=== PATIENT | male | born 1970 | race Caucasian/White ===

== ENCOUNTER → 2016-08-16 | Outpatient (CLI) | payer BC, OTHER ==
[~2016-08-16] MED LIST: AMLO-110 PO; ATEN50TA8 PO; CALC667C4 PO; CHOL1000 PO; ISOS30TA3 PO; LSX20 PO; SIMV20TA2 PO
--- NOTE | 2016-08-16 14:00 | DIAGNOSTIC IMAGING REPORT ---
ABDOMEN AND PELVIS CT WITHOUT CONTRAST CT DOSE: 1793.86 mGy.cm HISTORY: Pre-op study. EVAL FOR TRANSPLANT TECHNIQUE: Multiaxial CT images of the abdomen and pelvis were performed without contrast. COMPARISON STUDY: Abdominal CT 03/22/2010. FINDINGS: The lung bases are essentially clear. Small fat-containing umbilical hernia measuring 4.8 cm. The unenhanced liver, adrenal glands, pancreas, and gallbladder appear unremarkable. Interval increase in size and number of the bilateral hepatic and renal hypodense lesions. These are technically indeterminate on this noncontrast study but are consistent with cysts in the setting of polycystic kidney disease. Some of the renal lesions are intermediate to increased density. Again, these are incompletely characterized but favor hyperdense cysts. Evaluation for solid renal mass is considered nondiagnostic due to the lack of intravenous contrast. Dominant renal cyst is seen within the lower pole of the right kidney and measures 8 cm. There are few punctate bilateral renal calculi. No hydronephrosis. No significant retroperitoneal lymphadenopathy. There appear to be single bilateral renal arteries and renal veins. Normal caliber abdominal aorta. Suboptimal evaluation for bowel pathology due to the lack of intravenous and oral contrast. However, there is no definite bowel wall thickening or obstruction. The bladder is not well-distended but appears unremarkable. Colonic diverticulosis. Both kidneys are enlarged. IMPRESSION: 1. Redemonstration of the polycystic kidney disease with increase in size and number of the bilateral renal and hepatic lesions/cysts. 2. No bowel wall thickening or obstruction. 3. Small fat-containing umbilical hernia. 4. Bilateral nephrolithiasis. No hydronephrosis. 5. Colonic diverticulosis. Electronically signed by: Real Elaine M.D. 08/16/2016 1:59 PM Dictated Date/Time: 08/16/2016 1:43 PM
== END | disposition home or self-care (01) ==
LOC: C.CTS 12:27
PROVIDERS: ATTEND Transplant Surgery
DX: N18.6 End stage renal disease (principal); Q61.9 Cystic kidney disease, unspecified; N20.0 Calculus of kidney; K57.30 Diverticulosis of large intestine without perforation or abscess without bleeding

== ENCOUNTER 2024-06-04 12:37 | Inpatient (IN) ==
--- NOTE | 2024-06-04 13:29 | XRay Report ---
XR chest 1V portable CLINICAL HISTORY: Dyspnea. COMPARISON STUDY: Chest radiograph April 20, 2022. FINDINGS: Mild elevation of the right hemidiaphragm is unchanged. There is no pneumothorax or pleural effusion. Cardiomediastinal silhouette is unremarkable. Mild interstitial thickening is present. IMPRESSION: Mild interstitial thickening. This could reflect mild pulmonary edema or an infectious p rocess. Radiographic follow up is recommended. ACT 112: Negative or not required by law. Electronically signed by: David Montez M.D. 06/04/2024 1:27 PM
[2024-06-04 13:32] LABS: Basophils # (auto) 0.04 K/uL (0.00-0.20); Basophils % (auto) 0.5 %; Eosinophils # (auto) 0.19 K/uL (0.00-0.50); Eosinophils % (auto) 2.5 %; Hematocrit (blood only) 53.5 % (42.0-52.0); Hemoglobin 16.5 g/dl (14.0-18.0); Immature Granulocytes # (auto) 0.02 K/uL (0.01-0.20); Immature Granulocytes % (auto) 0.3 %; Lymphocytes # (auto) 0.36 K/uL (1.20-3.40); Lymphocytes % (auto) 4.6 %; Mean Corpuscular Hemoglobin 25.9 pg (25.0-34.0); Mean Corpuscular Hgb Conc 30.8 g/dL (32.0-36.0); Mean Platelet Volume 11.2 fL (9.4-12.4); Monocytes # (auto) 0.47 K/uL (0.11-0.59); Monocytes % (auto) 6.1 %; Neutrophils # (auto) 6.67 K/uL (1.40-6.50); Platelet Count 175 K/uL (130-400); RDW Coefficient of Variation 17.8 % (11.5-14.5); RDW Standard Deviation 49.8 fL (36.4-46.3); Red Blood Count 6.37 M/uL (4.70-6.10); White Blood Count 7.75 K/ul (4.8-10.8)
[2024-06-04 13:50] LABS: Albumin Globulin Ratio 1.7 (0.9-2); Albumin Level 4.1 gm/dl (3.4-5.0); BUN Creatinine Ratio 15.4 (10-20); Bilirubin,Total 0.9 mg/dl (0.2-1.0); Calcium 9.8 mg/dl (8.6-10.3); Creatinine Clr Calc Pharmacy 83.7 ml/min; Globulin 2.4 gm/dl (2.5-4.0); Magnesium 1.8 mg/dl (1.7-2.4); Potassium 4.6 mmol/L (3.5-5.1); Total Protein 6.5 gm/dl (6.0-8.3)
[2024-06-04 13:54] LABS: INR 1.1 (0.9-1.1); Partial Thromboplastin Ratio 1.1; Partial Thromboplastin Time 29 Seconds (21-31); Prothrombin Time 11.4 Seconds (9.0-12.0)
--- NOTE | 2024-06-04 14:13 | Emergency Department Note ---
Impression & Plan Hypoxia, Polycystic kidney disease, S/P kidney transplant, Enterovirus infection, Rhinovirus infection ED Provider Note Provider: Benedict Key MD CHIEF COMPLAINT: Cough, shortness of breath HISTORY OF PRESENT ILLNESS: Patient is a 53-year-old gentleman history of kidney transplant [facility] in 2020 secondary to polycystic kidney disease, hypertension, hyperlipidemia presenting here referred from the outpatient clinic. States in reports over the past week he has had cough and shortness of breath with exertion. Mildly productive cough. No significant swelling recent travel. No significant chest pain or lightheadedness or dizziness reported. Denies fever or sore throat or congestion. No history of asthma reported. Did have small relative at an ear infection recently. No urinary issues or abdominal pain reported. No nausea or vomiting reported. Found to be hypoxic in the clinic and sent here for further evaluation. PAST MEDICAL HISTORY: As noted above MEDICATIONS: Reviewed home medications states compliance SOCIAL HISTORY: Rodrigues, non-smoker PHYSICAL EXAM: GENERAL: alert and oriented in no acute distress on stretcher Head: normocephalic and atraumatic EYES: No injection, discharge or icterus. EOMI. NECK: Trachea midline. ENT: Mucous membranes pink and moist. LUNGS: Airway patent. No retractions. Breath sounds clear HEART: Regular rate and rhythm. No chest wall tenderness ABDOMEN: Soft and non-tender, without guarding or rebound. SKIN: Acyanotic, warm, dry, without rashes EXTREMITIES: Without swelling, tenderness or deformity NEUROLOGICAL: No focal deficits moving all extremities. No aphasia. No facial droop or slurred speech. EK bpm normal sinus rhythm. No PVC or PAC. No acute ST segment elevation or depression with a QTc of 420. CONTINUOUS CARDIAC MONITORING: was ordered and showed a heart rate of 60s-70s bpm in normal sinus rhythm Patient's laboratory studies and imaging reviewed. Differential includes Reactive airway disease, pneumonia, pneumothorax, COPD, CHF, infections, cardiac ischemia, pulmonary embolism, musculoskeletal, gastrointestinal, as well as other pathologies. IMPRESSION/MEDICAL DECISION MAKING: Normally active rodrigues. No smoking history or significant respiratory history reported. Does significantly have a history of kidney transplant. Not normally on oxygen and now needing 5 to 6 L. Chest x-ray mild possible edema and interstitial thickening but no significant swelling on clinical exam. No significant leukocytosis or fever reported. Maybe a slight cough. Procalcitonin not elevated. Did send cultures and lactate given his immunosuppressed status. Renal function per his baseline but elevated 1.4. No other significant lecture light abnormalities. Respiratory viral panel was sent. No significant evidence of again leg swelling or DVT on exam but PE does enter the differential. Obvious concerns with kidney transplant his creatinine of 1.4 for IV contrast. Does not seem significantly wheezy on exam. Discussed with the patient and given his oxygen requirement, I do believe we need to bring him into the hospital. Does test positive for enterorhinovirus. Discussed with hospitalist team bringing the patient in and further workup with pulmonary imaging. Hypoxia seems a bit exaggerated for enterorhinovirus given his lack of significant pulmonary history. As he is stable at this point we will defer to the hospitalist team ordering further PE workup etc. discussed with patient plan to stay for further care and he was agreeable. DIAGNOSIS: Shortness of breath, hypoxia, history of renal transplant DISPOSITION: Hospitalist will evaluate Patient was agreeable with this plan. Past Med/Surg History Problem List (Updated 06/04/24 @ 18:07 by Benedict Key M.D.) Rhinovirus infection (Acute) Enterovirus infection (Acute) Hypoxia (Acute) Venous aneurysm Lower extremity edema (Acute) Hematoma of right lower leg (Acute) Hypomagnesemia BK polyoma viruria S/P kidney transplant (Acute) Hyperlipidemia (Chronic) Hypertension (Chronic) controlled, stable per pt Secondary hyperparathyroidism (Chronic) Per records, pt unaware End stage renal disease (Chronic) Hx dialysis (not currently), renal transplant 2020, Follows with Dr. Case and Monika Henley ([facility]) Polycystic kidney disease (Acute) Medical History Elevated hemidiaphragm Traumatic open wound of right lower leg with delayed healing History of gout History of deep venous thrombosis (DVT) of distal vein of left lower extremity A-V fistula Cellulitis of left leg Dialysis patient Surgical History Hx of colonoscopy Hx of kidney transplant History of surgery History of wisdom tooth extraction History of tonsillectomy S/P cardiac catheterization Family History Mother Diabetes Hypertension Polycystic kidney Other No family history of adverse response to anesthesia Denies family history of Ovarian cancer Prostate cancer Myocardial infarction Breast cancer Colorectal cancer Stroke Social History (Updated 04/25/24 @ 08:58 by DEBBIE Anderson) Smoking Status: Never smoker Second Hand Exposure: No; Do You Dip or Chew Tobacco: No; Hx Alcohol Use: No Hx Substance Use: No Preferred Language: Vietnamese Communication Ability: Effective Visual Impairment: Limited Hearing Ability: Normal Rewinder Operator Helper Required: No Beliefs That Will Affect Care: None marital status: Single Current Living Situation: Alone current occupational status: employed current occupation: [employer] How many Children do You have: 0 Feels Safe at Home: Yes Childhood Exposure to Second-Hand Smoke: No Diet: regular caffeine: Yes (sometimes) during the past year weight has: remained stable Dental Care, Regularly: Yes Physical Activity Frequency: Daily Physical Activity Frequency Comment: active daily Seatbelt Use: always Sunscreen Use: Yes Do you think of yourself as: straight/heterosexual Gender Identity: Male Assistive Devices: Glasses Allergies Allergies Allergy/AdvReac Type Severity Reaction Status Date / Time No Known Drug Allergies Allergy Verified 06/04/24 11:55 Home Meds Home Medications Medication Instructions Recorded Confirmed aspirin 81 mg tablet,delayed 81 mg PO QAM 01/12/21 06/04/24 release (Adult Aspirin Regimen) cholecalciferol (vitamin D3) 25 25 mcg PO QAM 01/12/21 06/04/24 mcg (1,000 unit) capsule multivitamin 1 tab PO QAM 01/12/21 06/04/24 tamsulosin 0.4 mg capsule (Flomax) 0.4 mg PO HS 01/12/21 06/04/24 vitamin B complex (B 1 tab PO QAM 05/13/21 06/04/24 Complex-Vitamin B12 tablet) mycophenolate mofetil 250 mg 500 mg PO BID 01/13/22 06/04/24 capsule (CellCept) magnesium oxide 400 mg (241.3 mg 1,200 mg PO BID 08/07/22 06/04/24 magnesium) tablet sodium di- and 1 tab PO BID 08/07/22 06/04/24 monophosphate-potassium phos monobasic 250 mg tablet ([id number]) tacrolimus 1 mg capsule, 2 mg PO .COMPLEX 11/10/22 06/04/24 immediate-release (Prograf) Mucinex 1 tab PO DIRECTED PRN Other 06/04/24 06/04/24 Previous Rx's Medication Instructions Recorded prednisone 5 mg tablet 5 mg PO QAM #90 tabs 06/28/23 atenolol 25 mg tablet 25 mg PO HS #90 tabs 10/11/23 simvastatin 20 mg tablet (Zocor) 20 mg PO HS #90 tabs 10/11/23 Results & Data (ED) Vital Signs Vital Signs - 24 hr 06/04/24 12:46 06/04/24 13:00 06/04/24 13:04 Temperature 36.8 C Temperature Source Temporal Artery Scan Pulse Rate 80 78 Pulse Rate from SpO2 Sensor Respiratory Rate 20 Respiratory Effort / Characteristics Non-Labored Spontaneous Respiratory Depth Normal Respiratory Pattern Regular Blood Pressure 150/102 H 156/99 H Blood Pressure Mean 118 121 Pulse Oximetry 86 L Oxygen Delivery Method Room Air Oxygen Flow Rate Sepsis Recent Fever Within 48 Hours No Sepsis New/Unexplained Change in Mental Status N/A Sepsis Action Taken by Nursing No Action Required 06/04/24 13:15 06/04/24 13:21 06/04/24 13:24 Temperature Temperature Source Pulse Rate 73 78 78 Pulse Rate from SpO2 Sensor 75 77 78 Respiratory Rate 25 H 27 H 16 Respiratory Effort / Characteristics Respiratory Depth Respiratory Pattern Blood Pressure Blood Pressure Mean Pulse Oximetry 95 94 93 Oxygen Delivery Method Nasal Cannula Oxygen Flow Rate 6 Sepsis Recent Fever Within 48 Hours Sepsis New/Unexplained Change in Mental Status Sepsis Action Taken by Nursing 06/04/24 13:30 06/04/24 13:36 06/04/24 13:45 Temperature Temperature Source Pulse Rate 67 70 Pulse Rate from SpO2 Sensor 70 71 Respiratory Rate 22 30 H Respiratory Effort / Characteristics Respiratory Depth Respiratory Pattern Blood Pressure 149/93 H Blood Pressure Mean 112 Pulse Oximetry 94 93 Oxygen Delivery Method Oxygen Flow Rate Sepsis Recent Fever Within 48 Hours Sepsis New/Unexplained Change in Mental Status Sepsis Action Taken by Nursing 06/04/24 13:54 06/04/24 13:54 06/04/24 13:55 Temperature Temperature Source Pulse Rate 73 Pulse Rate from SpO2 Sensor Respiratory Rate Respiratory Effort / Characteristics Spontaneous SOB on Exertion Respiratory Depth Respiratory Pattern Blood Pressure Blood Pressure Mean Pulse Oximetry 95 Oxygen Delivery Method Nasal Cannula Nasal Cannula Oxygen Flow Rate 6 6 Sepsis Recent Fever Within 48 Hours Sepsis New/Unexplained Change in Mental Status Sepsis Action Taken by Nursing 06/04/24 13:57 06/04/24 14:00 06/04/24 14:09 Temperature Temperature Source Pulse Rate 71 66 Pulse Rate from SpO2 Sensor 70 66 Respiratory Rate 27 H 29 H Respiratory Effort / Characteristics Respiratory Depth Respiratory Pattern Blood Pressure 154/99 H Blood Pressure Mean 106 Pulse Oximetry 94 93 Oxygen Delivery Method Oxygen Flow Rate Sepsis Recent Fever Within 48 Hours Sepsis New/Unexplained Change in Mental Status Sepsis Action Taken by Nursing 06/04/24 14:27 06/04/24 14:30 06/04/24 14:30 Temperature Temperature Source Pulse Rate 61 62 Pulse Rate from SpO2 Sensor 61 62 Respiratory Rate 30 H 31 H Respiratory Effort / Characteristics Respiratory Depth Respiratory Pattern Blood Pressure 139/93 Blood Pressure Mean 109 Pulse Oximetry 91 92 Oxygen Delivery Method Oxygen Flow Rate Sepsis Recent Fever Within 48 Hours Sepsis New/Unexplained Change in Mental Status Sepsis Action Taken by Nursing 06/04/24 14:48 06/04/24 14:54 06/04/24 15:00 Temperature Temperature Source Pulse Rate 78 77 Pulse Rate from SpO2 Sensor 79 78 Respiratory Rate 22 27 H Respiratory Effort / Characteristics Respiratory Depth Respiratory Pattern Blood Pressure 155/98 H Blood Pressure Mean 117 Pulse Oximetry 95 95 Oxygen Delivery Method Oxygen Flow Rate Sepsis Recent Fever Within 48 Hours Sepsis New/Unexplained Change in Mental Status Sepsis Action Taken by Nursing 06/04/24 15:03 06/04/24 15:24 Temperature Temperature Source Pulse Rate 75 68 Pulse Rate from SpO2 Sensor 75 68 Respiratory Rate 18 25 H Respiratory Effort / Characteristics Respiratory Depth Respiratory Pattern Blood Pressure Blood Pressure Mean Pulse Oximetry 95 95 Oxygen Delivery Method Nasal Cannula Oxygen Flow Rate 6 Sepsis Recent Fever Within 48 Hours Sepsis New/Unexplained Change in Mental Status Sepsis Action Taken by Nursing Laboratory Data 06/04/24 13:04 06/04/24 13:04 Lab Results 06/04/24 06/04/24 06/04/24 Range/Units 13:04 13:28 13:35 WBC 7.75 (4.8-10.8) K/ul RBC 6.37 H (4.70-6.10) M/uL Hgb 16.5 (14.0-18.0) g/dl Hct 53.5 H (42.0-52.0) % MCV 84.0 (80.0-100.0) fL MCH 25.9 (25.0-34.0) pg MCHC 30.8 L (32.0-36.0) g/dL RDW Std Deviation 49.8 H (36.4-46.3) fL RDW Coeff of Jenelle 17.8 H (11.5-14.5) % Plt Count 175 (130-400) K/uL MPV 11.2 (9.4-12.4) fL Immature Gran % (Auto) 0.3 % Neut % (Auto) 86.0 % Lymph % (Auto) 4.6 % Rice % (Auto) 6.1 % Eos % (Auto) 2.5 % Baso % (Auto) 0.5 % Neut # (Auto) 6.67 H (1.40-6.50) K/uL Lymph # (Auto) 0.36 L (1.20-3.40) K/uL Rice # (Auto) 0.47 (0.11-0.59) K/uL Eos # (Auto) 0.19 (0.00-0.50) K/uL Baso # (Auto) 0.04 (0.00-0.20) K/uL Immature Gran # (Auto) 0.02 (0.01-0.20) K/uL PT 11.4 (9.0-12.0) Seconds INR 1.1 (0.9-1.1) APTT 29 (21-31) Seconds PTT Ratio 1.1 Sodium 141 (136-145) mmol/L Potassium 4.6 (3.5-5.1) mmol/L Chloride 104 (98-107) mmol/L Carbon Dioxide 30 (21-32) mmol/L Anion Gap 7 (3-11) BUN 22 (6-23) mg/dl Creatinine 1.43 H (0.6-1.4) mg/dl Est Cr Clr Drug Dosing 83.7 ml/min eGFR 58.23 BUN/Creatinine Ratio 15.4 (10-20) Glucose 106 H (70-99(Fasting)) mg/dl Lactate 0.9 (0.4-2.0) mmol/L Calcium 9.8 (8.6-10.3) mg/dl Magnesium 1.8 (1.7-2.4) mg/dl Total Bilirubin 0.9 (0.2-1.0) mg/dl AST 24 (13-39) U/L ALT 19 (7-52) U/L Alkaline Phosphatase 97 (34-104) U/L Total Protein 6.5 (6.0-8.3) gm/dl Albumin 4.1 (3.4-5.0) gm/dl Globulin 2.4 L (2.5-4.0) gm/dl Albumin/Globulin Ratio 1.7 (0.9-2) Procalcitonin 0.05 (0-0.5) ng/ml Urine Color Urine Appearance (Clear) Urine pH (4.5-7.5) Ur Specific Clyde (1.000-1.030) Urine Protein (Negative) Urine Glucose (UA) (Negative) Urine Ketones (Negative) Urine Blood (Negative) Urine Nitrite (Negative) Urine Bilirubin (Negative) Urine Urobilinogen (Negative) Ur Leukocyte Esterase (Negative) Urine WBC (Auto) (0-5) /hpf Urine RBC (Auto) (0-2) /hpf U Hyaline Cast (Auto) (0-2) /lpf U Epithel Cells (Auto) (0-2) /hpf Urine Bacteria (Auto) (None Seen) Urine Sperm (None Prsent) Adenovirus (PCR) Not Detected (NotDetected) B. pertussis DNA (PCR) Not Detected (NotDetected) B.parapertussis DNA PCR Not Detected (NotDetected) C. pneumoniae DNA (PCR) Not Detected (NotDetected) Coronavirus OC43 (PCR) Not Detected (NotDetected) Coronavirus HKU1 (PCR) Not Detected (NotDetected) Coronavirus 229E (PCR) Not Detected (NotDetected) SARS-CoV-2 (PCR) Not Detected (NotDetected) Coronavirus NL63 (PCR) Not Detected (NotDetected) Human Metapneumovir PCR Not Detected (NotDetected) Influenza Type A (PCR) Not Detected (NotDetected) Influenza Type B (PCR) Not Detected (NotDetected) M. pneumoniae (PCR) Not Detected (NotDetected) Parainfluenza 1 (PCR) Not Detected (NotDetected) Parainfluenza 2 (PCR) Not Detected (NotDetected) Parainfluenza 3 (PCR) Not Detected (NotDetected) Parainfluenza 4 (PCR) Not Detected (NotDetected) RSV (PCR) Not Detected (NotDetected) Entero/Rhino (PCR) DETECTED A (NotDetected) 06/04/24 Range/Units 15:16 WBC (4.8-10.8) K/ul RBC (4.70-6.10) M/uL Hgb (14.0-18.0) g/dl Hct (42.0-52.0) % MCV (80.0-100.0) fL MCH (25.0-34.0) pg MCHC (32.0-36.0) g/dL RDW Std Deviation (36.4-46.3) fL RDW Coeff of Jenelle (11.5-14.5) % Plt Count (130-400) K/uL MPV (9.4-12.4) fL Immature Gran % (Auto) % Neut % (Auto) % Lymph % (Auto) % Rice % (Auto) % Eos % (Auto) % Baso % (Auto) % Neut # (Auto) (1.40-6.50) K/uL Lymph # (Auto) (1.20-3.40) K/uL Rice # (Auto) (0.11-0.59) K/uL Eos # (Auto) (0.00-0.50) K/uL Baso # (Auto) (0.00-0.20) K/uL Immature Gran # (Auto) (0.01-0.20) K/uL PT (9.0-12.0) Seconds INR (0.9-1.1) APTT (21-31) Seconds PTT Ratio Sodium (136-145) mmol/L Potassium (3.5-5.1) mmol/L Chloride (98-107) mmol/L Carbon Dioxide (21-32) mmol/L Anion Gap (3-11) BUN (6-23) mg/dl Creatinine (0.6-1.4) mg/dl Est Cr Clr Drug Dosing ml/min eGFR BUN/Creatinine Ratio (10-20) Glucose (70-99(Fasting)) mg/dl Lactate (0.4-2.0) mmol/L Calcium (8.6-10.3) mg/dl Magnesium (1.7-2.4) mg/dl Total Bilirubin (0.2-1.0) mg/dl AST (13-39) U/L ALT (7-52) U/L Alkaline Phosphatase (34-104) U/L Total Protein (6.0-8.3) gm/dl Albumin (3.4-5.0) gm/dl Globulin (2.5-4.0) gm/dl Albumin/Globulin Ratio (0.9-2) Procalcitonin (0-0.5) ng/ml Urine Color Yellow Urine Appearance Clear (Clear) Urine pH 8.0 H (4.5-7.5) Ur Specific Clyde 1.013 (1.000-1.030) Urine Protein 1+ H (Negative) Urine Glucose (UA) Negative (Negative) Urine Ketones Negative (Negative) Urine Blood Negative (Negative) Urine Nitrite Negative (Negative) Urine Bilirubin Negative (Negative) Urine Urobilinogen Negative (Negative) Ur Leukocyte Esterase Negative (Negative) Urine WBC (Auto) 0-5 (0-5) /hpf Urine RBC (Auto) 0-2 (0-2) /hpf U Hyaline Cast (Auto) 0-2 (0-2) /lpf U Epithel Cells (Auto) 0-2 (0-2) /hpf Urine Bacteria (Auto) None Seen (None Seen) Urine Sperm Present A (None Prsent) Adenovirus (PCR) (NotDetected) B. pertussis DNA (PCR) (NotDetected) B.parapertussis DNA PCR (NotDetected) C. pneumoniae DNA (PCR) (NotDetected) Coronavirus OC43 (PCR) (NotDetected) Coronavirus HKU1 (PCR) (NotDetected) Coronavirus 229E (PCR) (NotDetected) SARS-CoV-2 (PCR) (NotDetected) Coronavirus NL63 (PCR) (NotDetected) Human Metapneumovir PCR (NotDetected) Influenza Type A (PCR) (NotDetected) Influenza Type B (PCR) (NotDetected) M. pneumoniae (PCR) (NotDetected) Parainfluenza 1 (PCR) (NotDetected) Parainfluenza 2 (PCR) (NotDetected) Parainfluenza 3 (PCR) (NotDetected) Parainfluenza 4 (PCR) (NotDetected) RSV (PCR) (NotDetected) Entero/Rhino (PCR) (NotDetected) Imaging Data Radiologist's Impression: Chest X-Ray 06/04/24 13:09 XR chest 1V portable CLINICAL HISTORY: Dyspnea. COMPARISON STUDY: Chest radiograph April 20, 2022. FINDINGS: Mild elevation of the right hemidiaphragm is unchanged. There is no pneumothorax or pleural effusion. Cardiomediastinal silhouette is unremarkable. Mild interstitial thickening is present. IMPRESSION: Mild interstitial thickening. This could reflect mild pulmonary edema or an infectious process. Radiographic follow up is recommended. ACT 112: Negative or not required by law. Electronically signed by: David Montez M.D. 06/04/2024 1:27 PM Discharge Plan Visit Data Chief Complaint: Shortness of Breath/Dyspnea Stated Complaint: SOB, LOW OXYGEN ED Provider: Benedict eKy Discharge Problem: Hypoxia, Polycystic kidney disease, S/P kidney transplant, Enterovirus infection, Rhinovirus infection Patient Disposition: Admitted As Inpatient
[2024-06-04 14:39] LABS: Adenovirus PCR Not Detected (NotDetected); Bordetella parapertussis PCR Not Detected (NotDetected); Bordetella pertussis PCR Not Detected (NotDetected); Chlamydia pneumoniae PCR Not Detected (NotDetected); Coronavirus 229E PCR Not Detected (NotDetected); Coronavirus CoV-2 (COVID19)PCR Not Detected (NotDetected); Coronavirus HKU1 PCR Not Detected (NotDetected); Coronavirus NL63 PCR Not Detected (NotDetected); Coronavirus OC43PCR Not Detected (NotDetected); Human Metapneumovirus PCR Not Detected (NotDetected); Influenza A PCR Not Detected (NotDetected); Influenza B PCR Not Detected (NotDetected); Mycoplasma pneumoniae PCR Not Detected (NotDetected); Parainfluenza Virus 1 PCR Not Detected (NotDetected); Parainfluenza Virus 2 PCR Not Detected (NotDetected); Parainfluenza Virus 3 PCR Not Detected (NotDetected); Parainfluenza Virus 4 PCR Not Detected (NotDetected); Respiratory Syncytial VirusPCR Not Detected (NotDetected); Rhinovirus/Enterovirus PCR DETECTED (NotDetected)
--- NOTE | 2024-06-04 15:13 | History & Physical Report ---
Date of Service June 04, 2024 Assessment & Plan (1) Hypoxia: Plan: Patient sent in at the behest of his PCP on 06/04 for new onset WHITE, hypoxia, and productive cough SpO2 85% on RA in the ED Patient does not use up on oxygen at baseline No leukocytosis, however somewhat elevated compared to prior WBC counts Patient also on immunosuppressive agents Blood cultures drawn in the ED Lactate WNL PCT WNL Entero-/rhinovirus (+) on arrival Droplet isolation precautions Supportive care Incentive spirometry, flutter valve Guaifenesin 600 mg p.o. BID Acetaminophen as needed for pain/fever While entero-/rhinovirus provides a reason why patient is hypoxic, his SpO2 de saturation (85% when walking on RA) seems more extensive than it should be Discussed the option for chest CTA with patient at bedside, and he is concerned regarding IV contrast given his history of kidney transplant No tachycardia on arrival; while he does have history of a provoked DVT x 2, he denies prior history of PE Will defer chest CTA at time of admission, with low threshold to obtain if clinical deterioration DDx at this time includes pulmonary embolism, as well as hypersensitivity pneumonitis/mold exposure (as patient is a [employer]) (2) S/P kidney transplant: Plan: Formerly ESRD on dialysis, but not currently; transplant in 2020 Kidney function is around baseline on arrival (creatinine 1.43) Continue mycophenolate, tacrolimus, and prednisone A.m. mycophenolate, tacrolimus, and cortisol levels (3) Enterovirus infection: (4) Rhinovirus infection: (5) Hyperlipidemia: (6) Hypertension: (7) Polycystic kidney disease: Plan Disposition: Admit to [facility] telemetry Full code Regular diet VTE PPx: Heparin 5000u SQ q12h History of Present Illness Chief Complaint: SOB/dyspnea Primary Care Provider: Noman Wei DO Brian is a pleasant 53-year-old male with PMH of polycystic kidney disease, ESRD s/p renal transplant, secondary hyperparathyroidism, HTN, and HLD. He presented on 06/04 at the behest of his PCP due to hypoxia and cough. Patient reports he has had new onset WHITE x 1 week as well as productive cough (yellow sputum production). No SOB at rest. No orthopnea. Occupation: [employer]. He does not believe he has had any recent environmental exposures, but was dealing with a mold exposure last month. No sick contacts. He does not wear supplemental oxygen at baseline. No CPAP at night. He denies pleuritic CP, hemoptysis, chest pain, or chest palpitations. He does have a history of DVT x 2, but these were both provoked incidents when he injured his legs. He does not remember whe n these were, he denies history of pulmonary embolism, and reports no family history of DVT/PE. Patient took his regular morning medicine today; no recent change in medicine. He takes prednisone daily for his kidneys. History of kidney transplant in 2020. He reports he is still producing urine. Patient has not been taking additional medications this week for his symptoms. He did take Tylenol yesterday as his right knee was bothering him, but he reports this is a chronic issue. He denies smoking, tobacco use, recent alcohol use. No history of asthma or COPD to his knowledge. Patient is hypertensive 150/102 at time of admission; SpO2 95% on 6L NC. ED course: ROS: Patient endorses WHITE and productive cough x 1 week (yellow). Patient denies fever, chills, night-sweats, dizziness, lightheadedness, SNYDER, syncope, chest pain, chest palpitations, pleuritic CP, SOB at rest, wheezing, hemoptysis, abdominal pain, N/V/D, changes in urinary/bowel habits, decreased urinary frequency, injuries to the legs, swelling/redness in the legs, or numbness/tingling in arms or legs. Per nursing staff, patient's SpO2 dropped to 85% when walking to the bathroom on room air. Allergies Allergy/AdvReac Type Severity Reaction Status Date / Time No Known Drug Allergies Allergy Verified 06/04/24 11:55 Home Medications Medication Instructions Recorded Confirmed Type aspirin 81 mg tablet,delayed 81 mg PO QAM 01/12/21 06/04/24 History release (Adult Aspirin Regimen) cholecalciferol (vitamin D3) 25 25 mcg PO QAM 01/12/21 06/04/24 History mcg (1,000 unit) capsule multivitamin 1 tab PO QAM 01/12/21 06/04/24 History tamsulosin 0.4 mg capsule (Flomax) 0.4 mg PO HS 01/12/21 06/04/24 History vitamin B complex (B 1 tab PO QAM 05/13/21 06/04/24 History Complex-Vitamin B12 tablet) mycophenolate mofetil 250 mg 500 mg PO BID 01/13/22 06/04/24 History capsule (CellCept) magnesium oxide 400 mg (241.3 mg 1,200 mg PO BID 08/07/22 06/04/24 History magnesium) tablet sodium di- and 1 tab PO BID 08/07/22 06/04/24 History monophosphate-potassium phos monobasic 250 mg tablet (P-[id number]-[id number]) tacrolimus 1 mg capsule, 2 mg PO .COMPLEX 11/10/22 06/04/24 History immediate-release (Prograf) prednisone 5 mg tablet 5 mg PO QAM #90 tabs 06/28/23 06/04/24 Rx atenolol 25 mg tablet 25 mg PO HS #90 tabs 10/11/23 06/04/24 Rx simvastatin 20 mg tablet (Zocor) 20 mg PO HS #90 tabs 10/11/23 06/04/24 Rx Mucinex 1 tab PO DIRECTED PRN Other 06/04/24 06/04/24 History Past Med/Surg History Problem List (Updated 06/04/24 @ 15:15 by Real Goldstein PA-C) Rhinovirus infection Enterovirus infection Hypoxia Venous aneurysm Lower extremity edema (Acute) Hematoma of right lower leg (Acute) Hypomagnesemia BK polyoma viruria S/P kidney transplant Hyperlipidemia (Chronic) Hypertension (Chronic) controlled, stable per pt Secondary hyperparathyroidism (Chronic) Per records, pt unaware End stage renal disease (Chronic) Hx dialysis (not currently), renal transplant 2020, Follows with Dr. Case and Monika Henley ([facility]) Polycystic kidney disease Medical History Elevated hemidiaphragm Traumatic open wound of right lower leg with delayed healing History of gout History of deep venous thrombosis (DVT) of distal vein of left lower extremity A-V fistula Cellulitis of left leg Dialysis patient Surgical History Hx of colonoscopy Hx of kidney transplant History of surgery History of wisdom tooth extraction History of tonsillectomy S/P cardiac catheterization Family History Mother Diabetes Hypertension Polycystic kidney Other No family history of adverse response to anesthesia Denies family history of Ovarian cancer Prostate cancer Myocardial infarction Breast cancer Colorectal cancer Stroke Social History (Updated 04/25/24 @ 08:58 by DEBBIE Anderson) Smoking Status: Never smoker Second Hand Exposure: No; Do You Dip or Chew Tobacco: No; Hx Alcohol Use: No Hx Substance Use: No Preferred Language: Nigerian Communication Ability: Effective Visual Impairment: Limited Hearing Ability: Normal Garment Worker Required: No Beliefs That Will Affect Care: None marital status: Single Current Living Situation: Alone current occupational status: employed current occupation: [employer] How many Children do You have: 0 Feels Safe at Home: Yes Childhood Exposure to Second-Hand Smoke: No Diet: regular caffeine: Yes (sometimes) during the past year weight has: remained stable Dental Care, Regularly: Yes Physical Activity Frequency: Daily Physical Activity Frequency Comment: active daily Seatbelt Use: always Sunscreen Use: Yes Do you think of yourself as: straight/heterosexual Gender Identity: Male Assistive Devices: Glasses Review of Systems Review of Systems: See HPI above Physical Exam Physical Exam: General: no acute distress; pleasant affect; non-toxic appearing; well- nourished; cooperative; SpO2 95% on 6L NC HEENT: normocephalic, atraumatic; no scleral icterus; PERRLA; vision and hearing grossly intact Neck: supple; no lymphadenopathy; trachea midline Skin: warm, dry without signs of tenting; no cyanosis; no rashes, bruising, lesions, or erythema noted CV: chest wall NTP; RRR; S1/S2 normal; no murmurs/rubs/gallops; pulses intact and symmetric at radial, DP, and PT Lungs: no acute respiratory distress; symmetrical chest wall expansion; expiratory wheeze auscultated in the right upper lung posteriorly ABD: Soft, NTP; umbilical hernia noted; BS present; no rebound/guarding; no distention; no rashes or bruising on the abdomen or flanks bilaterally MSK: no tics or fasciculations; no edema noted in the LEs b/l, nonerythematous Neuro: A&Ox3; normal mood and affect; fluent speech; no focal deficits; patient reports sensation is intact and symmetric in the lower extremities bilaterally Results & Data Results & Data Vital Signs (Past 12 Hours) Vital Signs Temp Pulse Resp BP Pulse Ox O2 Del Method O2 Flow Rate 06/04/24 13:55 73 95 Nasal Cannula 6 06/04/24 13:54 Nasal Cannula 6 06/04/24 13:00 78 06/04/24 12:46 36.8 C 80 20 150/102 H 86 L Room Air Laboratory Results Abnormal lab results 06/04/24 06/04/24 Range/Units 13:04 13:35 RBC 6.37 H (4.70-6.10) M/uL Hct 53.5 H (42.0-52.0) % MCHC 30.8 L (32.0-36.0) g/dL RDW Std Deviation 49.8 H (36.4-46.3) fL RDW Coeff of Jenelle 17.8 H (11.5-14.5) % Neut # (Auto) 6.67 H (1.40-6.50) K/uL Lymph # (Auto) 0.36 L (1.20-3.40) K/uL Creatinine 1.43 H (0.6-1.4) mg/dl Glucose 106 H (70-99(Fasting)) mg/dl Globulin 2.4 L (2.5-4.0) gm/dl Entero/Rhino (PCR) DETECTED A (NotDetected) Diagnostic Findings Chest X-Ray 06/04/24 13:09 XR chest 1V portable CLINICAL HISTORY: Dyspnea. COMPARISON STUDY: Chest radiograph April 20, 2022. FINDINGS: Mild elevation of the right hemidiaphragm is unchanged. There is no pneumothorax or pleural effusion. Cardiomediastinal silhouette is unremarkable. Mild interstitial thickening is present. IMPRESSION: Mild interstitial thickening. This could reflect mild pulmonary edema or an infectious process. Radiographic follow up is recommended. ACT 112: Negative or not required by law. Electronically signed by: David Montez M.D. 06/04/2024 1:27 PM ECG Additional Comments: ECG revealed NSR at 76 bpm; QTc 420 Code Status & VTE Plan Code Status Full code VTE Prophylaxis Plan VTE Prophylaxis will be ordered: Yes Supervising Physician Co-Signing Physician Notes Patient seen and examined, chart reviewed, case discussed with Real Goldstein PA-C and I agree with the assessment and plan as above except as otherwise noted Labs and images reviewed 53-year-old renal transplant patient stable since 2020 on mycophenolate/tacrolimus/prednisone presents with epoxy is suspected be due from viral pneumonia with enterovirus positive. He does have a history of prior DVTs without PE not currently on anticoagulation. No lower extremity swelling. He does not have pleuritic pain and he is not tachycardic. Will follow conservatively and treat for enterovirus, if he continues to have hypoxia disproportionate with his imaging/no clinical progression then follow-up with CTA at that time. Procalcitonin is negative, and he does not have a leukocytosis lower suspicion for superimposed bacterial etiology. Chest x-ray is clear. PG Care Time/CCT Total # of Minutes Spent Total Time Spent with Patient: Total time spent is greater than 50% in coordination of care (as documented) at patient's floor/unit and/or counseling patient: C[place] [address] INT INP/OBS CARE 3/75MIN Patient Type Established History Comprehensive Exam Comprehensive Medical Decision Making High Complexity Diagnoses Hypoxia R09.02 S/P kidney transplant Z94.0 Enterovirus infection B34.1 Rhinovirus infection B34.8 Hyperlipidemia, unspecified hyperlipidemia type E78.5 Hyperlipidemia type: unspecified Hypertension, unspecified type I10 Hypertension type: unspecified Polycystic kidney disease Q61.3 (5) Hyperlipidemia Hyperlipidemia type: unspecified Qualified Code(s): E78.5 - Hyperlipidemia, unspecified (6) Hypertension Hypertension type: unspecified Qualified Code(s): I10 - Essential (primary) hypertension
[2024-06-04 16:16] LABS: Appearance Urine Clear (Clear); Bacteria Urine Automated None Seen (None Seen); Bilirubin Urine Negative (Negative); Blood Urine Negative (Negative); Cast Urine Automated 0-2 /lpf (0-2); Color Urine Yellow; Epithelial Cell Urine Auto 0-2 /hpf (0-2); Glucose Urine UA Negative (Negative); Ketones Urine Negative (Negative); Leukocyte Esterase Urine Negative (Negative); Nitrite Urine Negative (Negative); Protein Urine 1+ (Negative); RBC Urine Automated 0-2 /hpf (0-2); Specific Gravity Urine 1.013 (1.000-1.030); Sperm Urine Present (None Prsent); Urobilinogen Urine Negative (Negative); WBC Urine Automated 0-5 /hpf (0-5)
[2024-06-04] MEDS ORDERED: ONDANSETRON INJ 2 MG/ML 2 ML VIAL IV PRN (18:31)
[2024-06-04] MEDS ORDERED: ACETAMINOPHEN 325 MG TAB PO PRN (18:31)
--- NOTE | 2024-06-04 21:23 | Electrocardiogram Report ---
Test Reason : Blood Pressure : */* mmHG Vent. Rate : 76 BPM Atrial Rate : 76 BPM P-R Int : 124 ms QRS Dur : 78 ms QT Int : 374 ms P-R-T Axes : 34 28 29 degrees QTcB Int : 420 ms Normal sinus rhythm Normal ECG When compared with ECG of 20-Apr-2022 09:13, Vent. rate has increased by 27 bpm Confirmed by Tc Kidd ([id number]) on 06/04/2024 9:23:07 PM Referred By: REFERRED SELF Confirmed By: Tc Kidd
[2024-06-04] MEDS: MAGNESIUM OXIDE 400 MG TAB PO SCH (22:38)
[2024-06-04] MEDS: TACROLIMUS 0.5 MG CAP PO SCH (22:38)
[2024-06-04] MEDS: guaiFENesin 600 MG TABCR PO SCH (22:39)
[2024-06-04] MEDS: SIMVASTATIN 20 MG TAB PO SCH (22:39)
[2024-06-04] MEDS: ATENOLOL 25 MG TABLET PO SCH (22:39)
[2024-06-04] MEDS: MYCOPHENOLATE MOFETIL 250 MG CAP PO SCH (22:39)
[2024-06-04] MEDS: TAMSULOSIN HCL 0.4 MG CAP PO SCH (22:39)
[2024-06-04] MEDS: HEPARIN SOD 5,000 UNIT/0.5 ML VIAL SQ SCH (22:40)
[2024-06-04] MEDS: POT PHOSPHATE MONOBASIC W/ SOD TAB PO SCH (23:54)
[2024-06-05 07:40] LABS: Basophils # (auto) 0.04 K/uL (0.00-0.20); Basophils % (auto) 0.6 %; Eosinophils # (auto) 0.55 K/uL (0.00-0.50); Eosinophils % (auto) 7.6 %; Hematocrit (blood only) 52.2 % (42.0-52.0); Hemoglobin 15.7 g/dl (14.0-18.0); Immature Granulocytes # (auto) 0.02 K/uL (0.01-0.20); Immature Granulocytes % (auto) 0.3 %; Lymphocytes # (auto) 0.58 K/uL (1.20-3.40); Lymphocytes % (auto) 8.1 %; Mean Corpuscular Hemoglobin 25.8 pg (25.0-34.0); Mean Corpuscular Hgb Conc 30.1 g/dL (32.0-36.0); Mean Corpuscular Volume 85.7 fL (80.0-100.0); Mean Platelet Volume 11.5 fL (9.4-12.4); Monocytes # (auto) 0.61 K/uL (0.11-0.59); Monocytes % (auto) 8.5 %; Neutrophils # (auto) 5.39 K/uL (1.40-6.50); Neutrophils % (auto) 74.9 %; Platelet Count 176 K/uL (130-400); RDW Coefficient of Variation 17.6 % (11.5-14.5); RDW Standard Deviation 51.3 fL (36.4-46.3); Red Blood Count 6.09 M/uL (4.70-6.10); White Blood Count 7.19 K/ul (4.8-10.8)
[2024-06-05 08:12] LABS: BUN Creatinine Ratio 16.3 (10-20); Calcium 8.8 mg/dl (8.6-10.3); Creatinine Clr Calc Pharmacy 88.3 ml/min
[2024-06-05] MEDS: predniSONE 5 MG TAB PO SCH (08:55)
[2024-06-05] MEDS: TACROLIMUS 1 MG CAP PO SCH (08:56)
[2024-06-05] MEDS: ASPIRIN 81 MG ECTAB PO SCH (08:56)
--- NOTE | 2024-06-05 15:27 | Hospitalist Progress Note ---
Date of Service June 05, 2024 Assessment & Plan (1) Hypoxia: Plan: Acute hypoxic respiratory failure Patient sent in at the behest of his PCP on 06/04 for new onset WHITE, hypoxia, and productive cough SpO2 85% on RA in the ED Patient does not use up on oxygen at baseline No leukocytosis, however somewhat elevated compared to prior WBC counts Patient also on immunosuppressive agents Blood cultures drawn in the ED Lactate WNL PCT WNL Entero-/rhinovirus (+) on arrival Droplet isolation precautions Supportive care Incentive spirometry, flutter valve Guaifenesin 600 mg p.o. BID Acetaminophen as needed for pain/fever Asked the nurse to titrate O2 down. (2) S/P kidney transplant: Plan: Formerly ESRD on dialysis, but not currently; transplant in 2020 Kidney function is around baseline on arrival (creatinine 1.43) Continue mycophenolate, tacrolimus, and prednisone (3) Enterovirus infection: (4) Rhinovirus infection: (5) Hyperlipidemia: (6) Hypertension: (7) Polycystic kidney disease: Plan Disposition: Likely discharge tomorrow if able to titrate down O2. May need a two-step test. Full code Regular diet VTE PPx: Heparin 5000u SQ q12h Admission and Anticipated Discharge Date Admission Date: June 04, 2024 Subjective Patient was seen and examined at 11:15 AM.. He says he feels well. He does not feel short of breath but he was noted to be requiring 4 to 6 L of oxygen. He stated that he had a chest cold a few days ago. I was notified that he was bradycardic while asleep. He stated that he snores at night. He has never had a sleep study and thus does not have an official diagnosis of sleep apnea. Review of Systems Review of Systems: All systems reviewed & are unremarkable except as noted in Subjective Physical Exam Physical Exam: General: Awake, conversant Heart: S1, S2/regular rate and rhythm, no murmur rubs or gallops Lungs: Clear to auscultation bilaterally. Normal effort Abdomen: Soft/nontender/nondistended. No hepatosplenomegaly Extremities: No clubbing/cyanosis. No edema Behavior: Appropriate, cooperative Results & Data Results & Data Vital Signs (Past 12 Hours) Vital Signs Temp Pulse Pulse Resp BP Pulse Ox O2 Del Method 06/05/24 14:43 91 Room Air 06/05/24 12:42 93 Nasal Cannula 06/05/24 12:02 36.6 C 58 L 22 134/78 90 Nasal Cannula 06/05/24 10:04 Nasal Cannula 06/05/24 07:58 36.4 C L 57 L 22 128/79 93 Nasal Cannula 06/05/24 06:55 46 L O2 Flow Rate 06/05/24 14:43 1 06/05/24 12:42 2 06/05/24 12:02 2 06/05/24 10:04 4 06/05/24 07:58 6 06/05/24 06:55 Laboratory Results Abnormal lab results 06/04/24 06/05/24 Range/Units 15:16 07:23 Hct 52.2 H (42.0-52.0) % MCHC 30.1 L (32.0-36.0) g/dL RDW Std Deviation 51.3 H (36.4-46.3) fL RDW Coeff of Jenelle 17.6 H (11.5-14.5) % Lymph # (Auto) 0.58 L (1.20-3.40) K/uL [place] # (Auto) 0.61 H (0.11-0.59) K/uL Eos # (Auto) 0.55 H (0.00-0.50) K/uL Urine pH 8.0 H (4.5-7.5) Urine Protein 1+ H (Negative) Urine Sperm Present A (None Prsent) PG Care Time/CCT Total # of Minutes Spent Total Time Spent with Patient: Total time spent is greater than 50% in coordination of care (as documented) at patient's floor/unit and/or counseling patient: Coding Level of Care Code 37036 SUB INP/OBS CARE 2/35MIN Diagnoses Hypoxia R09.02 S/P kidney transplant Z94.0 Enterovirus infection B34.1 Rhinovirus infection B34.8 Hyperlipidemia, unspecified hyperlipidemia type E78.5 Hyperlipidemia type: unspecified Hypertension, unspecified type I10 Hypertension type: unspecified Polycystic kidney disease Q61.3 (5) Hyperlipidemia Hyperlipidemia type: unspecified Qualified Code(s): E78.5 - Hyperlipidemia, unspecified (6) Hypertension Hypertension type: unspecified Qualified Code(s): I10 - Essential (primary) hypertension
--- NOTE | 2024-06-05 23:00 | Electrocardiogram Report ---
Test Reason : Blood Pressure : */* mmHG Vent. Rate : 59 BPM Atrial Rate : 59 BPM P-R Int : 124 ms QRS Dur : 86 ms QT Int : 422 ms P-R-T Axes : 17 32 14 degrees QTcB Int : 417 ms Sinus bradycardia Otherwise normal ECG When compared with ECG of 04-Jun-2024 12:56, No significant change was found Confirmed by Tc Kidd ([id number]) on 06/05/2024 10:59:37 PM Referred By: REFERRED SELF Confirmed By: Tc Kidd
[2024-06-06 06:44] LABS: Basophils # (auto) 0.05 K/uL (0.00-0.20); Basophils % (auto) 0.8 %; Eosinophils % (auto) 6.7 %; Hematocrit (blood only) 51.4 % (42.0-52.0); Hemoglobin 15.8 g/dl (14.0-18.0); Immature Granulocytes # (auto) 0.02 K/uL (0.01-0.20); Immature Granulocytes % (auto) 0.3 %; Lymphocytes # (auto) 0.78 K/uL (1.20-3.40); Mean Corpuscular Hemoglobin 26.2 pg (25.0-34.0); Mean Corpuscular Hgb Conc 30.7 g/dL (32.0-36.0); Mean Corpuscular Volume 85.1 fL (80.0-100.0); Monocytes # (auto) 0.57 K/uL (0.11-0.59); Monocytes % (auto) 9.5 %; Neutrophils # (auto) 4.18 K/uL (1.40-6.50); Neutrophils % (auto) 69.7 %; Platelet Count 159 K/uL (130-400); RDW Standard Deviation 50.5 fL (36.4-46.3); Red Blood Count 6.04 M/uL (4.70-6.10)
[2024-06-06 07:00] LABS: BUN Creatinine Ratio 19.1 (10-20); Calcium 8.7 mg/dl (8.6-10.3); Creatinine Clr Calc Pharmacy 84.7 ml/min; Potassium 4.5 mmol/L (3.5-5.1)
[2024-06-06 08:25] VITALS: RESP 18; TEMP 97.5
--- NOTE | 2024-06-06 11:03 | Discharge Summary ---
Date of Service June 06, 2024 Admission HPI Per Admitting Provider Brian is a pleasant 53-year-old male with PMH of polycystic kidney disease, ESRD s/p renal transplant, secondary hyperparathyroidism, HTN, and HLD. He presented on 06/04 at the behest of his PCP due to hypoxia and cough. Patient reports he has had new onset WHITE x 1 week as well as productive cough (yellow sputum production). No SOB at rest. No orthopnea. Occupation: [employer]. He does not believe he has had any recent environmental exposures, but was dealing with a mold exposure last month. No sick contacts. He does not wear supplemental oxygen at baseline. No CPAP at night. He denies pleuritic CP, hemoptysis, chest pain, or chest palpitations. He does have a history of DVT x 2, but these were both provoked incidents when he injured his legs. He does not remember when these were, he denies history of pulmonary embolism, and reports no family history of DVT/PE. Patient took his regular morning medicine today; no recent change in medicine. He takes prednisone daily for his kidneys. History of kidney transplant in 2020. He reports he is still producing urine. Patient has not been taking additional medications this week for his symptoms. He did take Tylenol yesterday as his right knee was bothering him, but he reports this is a chronic issue. He denies smoking, tobacco use, recent alcohol use. No history of asthma or COPD to his knowledge. Patient is hypertensive 150/102 at time of admission; SpO2 95% on 6L NC. ED course: ROS: Patient endorses WHITE and productive cough x 1 week (yellow). Patient denies fever, chills, night-sweats, dizziness, lightheadedness, SNYDER, syncope, chest pain, chest palpitations, pleuritic CP, SOB at rest, wheezing, hemoptysis, abdominal pain, N/V/D, changes in urinary/bowel habits, decreased urinary frequency, injuries to the legs, swelling/redness in the legs, or numbness/tingling in arms or legs. Per nursing staff, patient's SpO2 dropped to 85% when walking to the bathroom on room air. Admission Exam Per Admitting Provider General: no acute distress; pleasant affect; non-toxic appearing; well- nourished; cooperative; SpO2 95% on 6L NC HEENT: normocephalic, atraumatic; no scleral icterus; PERRLA; vision and hearing grossly intact Neck: supple; no lymphadenopathy; trachea midline Skin: warm, dry without signs of tenting; no cyanosis; no rashes, bruising, lesions, or erythema noted CV: chest wall NTP; RRR; S1/S2 normal; no murmurs/rubs/gallops; pulses intact and symmetric at radial, DP, and PT Lungs: no acute respiratory distress; symmetrical chest wall expansion; expiratory wheeze auscultated in the right upper lung posteriorly ABD: Soft, NTP; umbilical hernia noted; BS present; no rebound/guarding; no distention; no rashes or bruising on the abdomen or flanks bilaterally MSK: no tics or fasciculations; no edema noted in the LEs b/l, nonerythematous Neuro: A&Ox3; normal mood and affect; fluent speech; no focal deficits; patient reports sensation is intact and symmetric in the lower extremities bilaterally Principal Diagnosis Acute hypoxic respiratory failure due to acute viral illness/viral pneumonia Rhinovirus/enterovirus positive Immunocompromised host Discharge Exam General: Awake, conversant Heart: S1, S2/regular rate and rhythm, no murmur rubs or gallops Lungs: Clear to auscultation bilaterally. Normal effort Abdomen: Soft/nontender/nondistended. No hepatosplenomegaly Extremities: No clubbing/cyanosis. No edema Behavior: Appropriate, cooperative Discharge Data Allergies Allergy/AdvReac Type Severity Reaction Status Date / Time No Known Drug Allergies Allergy Verified 06/04/24 11:55 Consultations 06/04/24 15:04 ED Decision to Admit Stat Procedures Performed Chest X-Ray 06/04/24 13:09 XR chest 1V portable CLINICAL HISTORY: Dyspnea. COMPARISON STUDY: Chest radiograph April 20, 2022. FINDINGS: Mild elevation of the right hemidiaphragm is unchanged. There is no pneumothorax or pleural effusion. Cardiomediastinal silhouette is unremarkable. Mild interstitial thickening is present. IMPRESSION: Mild interstitial thickening. This could reflect mild pulmonary edema or an infectious process. Radiographic follow up is recommended. ACT 112: Negative or not required by law. Electronically signed by: David Montez M.D. 06/04/2024 1:27 PM Hospital Course (1) Hypoxia: Acute hypoxic respiratory failure likely due to viral pneumonia Patient sent in at the [facility] of his PCP on 06/04 for new onset WHITE, hypoxia, and productive cough SpO2 85% on RA in the ED Patient does not use up on oxygen at baseline No leukocytosis, however somewhat elevated compared to prior WBC counts Patient also on immunosuppressive agents Blood cultures drawn in the ED Lactate WNL PCT WNL Entero-/rhinovirus (+) on arrival Droplet isolation precautions Supportive care Incentive spirometry, flutter valve Guaifenesin 600 mg p.o. BID Acetaminophen as needed for pain/fever Patient is now requiring 2 L of oxygen per two-step test. Home O2 arranged (2) S/P kidney transplant: Formerly ESRD on dialysis, but not currently; transplant in 2020 Kidney function is around baseline on arrival (creatinine 1.43) Continue mycophenolate, tacrolimus, and prednisone Mycophenolate and tacrolimus levels pending. PCP to follow-up (3) Enterovirus infection: (4) Rhinovirus infection: (5) Hyperlipidemia: (6) Hypertension: (7) Polycystic kidney disease: Plan Discharge to home today Total Time Total Time Spent Total Time Spent (In Minutes): 35 Discharge Plan Discharge Items Patient Disposition: Home - Self-Care Reason For Visit: HYPOXIA, ETNERO/RHINOVIRUS Discharge Diagnosis: Acute hypoxic respiratory failure due to acute viral illness Rhinovirus/enterovirus positive Immunocompromised host Activity: Resume your previous activity Non-emergency contact: Primary Care Provider Call non-emergency contact if: you have any medication questions and your symptoms worsen Follow-up/Referrals: Noman Wei DO [Primary Care Provider] - 06/16/24 9:20 am Diet: Heart Healthy Addtl Attending Provider Instructions: Advised to follow-up with PCP in 1 week Advised to talk to your PCP about getting a sleep study done outpatient Pending Studies at Discharge: Yes Studies:: Mycophenolate and tacrolimus levels Stand-Alone Forms: My [employer], Smoking Cessation Medications and DC Order Prescriptions: Continued vitamin B complex [B Complex-Vitamin B12] Tablet 1 tab PO QAM tacrolimus [Prograf] 1 mg capsule 2 mg PO .COMPLEX Rx Instructions: 2 mg orally 2MG AM/ 1.5MG PM; atenolol 25 mg tablet 25 mg PO HS Qty: 90 3RF simvastatin [Zocor] 20 mg tablet 20 mg PO HS Qty: 90 3RF [id number]-[id number] 250 mg tablet 1 tab PO BID prednisone 5 mg tablet 5 mg PO QAM Qty: 90 3RF aspirin [Adult Aspirin Regimen] 81 mg tablet,delayed release (DR/EC) 81 mg PO QAM tamsulosin [Flomax] 0.4 mg capsule 0.4 mg PO HS multivitamin Tablet 1 tab PO QAM cholecalciferol (vitamin D3) 25 mcg (1,000 unit) capsule 25 mcg PO QAM mycophenolate mofetil [CellCept] 250 mg capsule 500 mg PO BID magnesium oxide 400 mg (241.3 mg magnesium) tablet 1,200 mg PO BID Rx Instructions: 3 TABLETS IN AM, 3 TABLETS AT NIGHTTIME - 400mg Tablets. Mucinex 1 tab PO DIRECTED PRN (Reason: Other) Discharge Orders: Discharge Order (Routine); Ordered 06/06/24 Ordered By: Preet Hicks Admission Data Admit Date/Time: 06/04/24 15:48 Attending Provider: Preet Hicks Admit Provider: Mayito Padilla Primary Care Provider: Noman Wei Other Providers: Mayiot Padilla; [facility],Oxygen Other Interventions: Discharge Summary Assessment (RN) Last Done: 06/06/24 11:47
[2024-06-06 11:36] VITALS: BP 138/79; O2SAT 90
[2024-06-06 11:49] VITALS: PULSE 69
== END 2024-06-06 12:15 | disposition home or self-care (01) | DRG 193 ==
LOC: ED 12:37 → EDINP 15:48 → SUATTDRO 15:48 → 2W 18:31

== ENCOUNTER 2024-06-30 16:07 | Inpatient (IN) ==
[~2024-06-30 16:07] MED LIST changes: -AMLO-110 PO; -ATEN50TA8 PO; -CALC667C4 PO; -CHOL1000 PO; +ETOMIDATE 2 MG/ML 20 ML VIAL IV ONE; -ISOS30TA3 PO; -LSX20 PO; +ROCURONIUM BROMIDE 10 MG/ML 5 ML VIAL IV ONE; -SIMV20TA2 PO; +SUCCINYLCHOLINE CHLORIDE 20 MG/ML 10 ML VIAL IV ONE
[2024-06-30 17:12] LABS: Base Excess VBG 6.5 mEq/L; HCO3 VBG 35 mmol/L; Oxygen Saturation VBG 92.7 %; PCO2 VBG 68 mmHg (38-50); PO2 VBG 64 mmHg; pH VBG 7.32 (7.36-7.41)
[2024-06-30 17:20] LABS: Basophils # (auto) 0.03 K/uL (0.00-0.20); Basophils % (auto) 0.4 %; Eosinophils # (auto) 0.23 K/uL (0.00-0.50); Eosinophils % (auto) 2.9 %; Hematocrit (blood only) 51.9 % (42.0-52.0); Hemoglobin 15.8 g/dl (14.0-18.0); Immature Granulocytes # (auto) 0.03 K/uL (0.01-0.20); Immature Granulocytes % (auto) 0.4 %; Lymphocytes # (auto) 0.48 K/uL (1.20-3.40); Lymphocytes % (auto) 6.1 %; Mean Corpuscular Hgb Conc 30.4 g/dL (32.0-36.0); Mean Corpuscular Volume 85.5 fL (80.0-100.0); Monocytes # (auto) 0.59 K/uL (0.11-0.59); Monocytes % (auto) 7.4 %; Neutrophils # (auto) 6.57 K/uL (1.40-6.50); Neutrophils % (auto) 82.8 %; Platelet Count 175 K/uL (130-400); RDW Coefficient of Variation 16.6 % (11.5-14.5); RDW Standard Deviation 49.7 fL (36.4-46.3); Red Blood Count 6.07 M/uL (4.70-6.10); White Blood Count 7.93 K/ul (4.8-10.8)
--- NOTE | 2024-06-30 17:28 | XRay Report ---
INDICATION: Cough. TECHNIQUE: Frontal radiograph of the chest. COMPARISON: Radiograph from 06/16/2024. FINDINGS: Multifocal infiltrates, slightly worsened from prior. No pneumothorax or pleural effusion. Cardiomegaly. Elevation of right hemidiaphragm, similar to prior. No acute fracture. IMPRESSION: Multifocal infiltrates, slightly worsened from prior. Electronically signed by Zach Hdz 06-30-2024 5:28 PM
[2024-06-30 17:35] LABS: BUN Creatinine Ratio 17.2 (10-20); Calcium 9.5 mg/dl (8.6-10.3); Creatinine Clr Calc Pharmacy 92.3 ml/min; Potassium 4.9 mmol/L (3.5-5.1)
[2024-06-30 17:43] LABS: Troponin I High Sensitivity 84.3 pg/ml (0-20)
[2024-06-30 17:45] LABS: INR 1.1 (0.9-1.1); Partial Thromboplastin Time 28 Seconds (21-31); Prothrombin Time 11.4 Seconds (9.0-12.0)
[2024-06-30 17:46] LABS: D Dimer 1020 ug/L FEU (0-500)
--- NOTE | 2024-06-30 18:12 | History & Physical Report ---
Date of Service June 30, 2024 Assessment & Plan Plan Disposition: History of Present Illness Chief Complaint: SOB/dyspnea Primary Care Provider: DO Miles Albertne is a 53-year-old male with PMH of polycystic kidney disease s/p kidney transplant (12/25/2020), ESRD, HTN, HLD, and hypoxia. He presented on 06/30 for worsening SOB. He reports that his home oxygen saturations been dropping down to 74%. Wheezing bilaterally. Patient takes 5 mg prednisone daily for his kidney transplant. Patient's SpO2 was 91% on 6L NC; tachypneic at 28 RPM and hypertensive at 157/83. ED course: ROS: Patient endorses Patient denies Allergies Allergy/AdvReac Type Severity Reaction Status Date / Time No Known Drug Allergies Allergy Verified 06/30/24 14:44 Home Medications Medication Instructions Recorded Confirmed Type aspirin 81 mg tablet,delayed 81 mg PO QAM 01/12/21 06/30/24 History release (Adult Aspirin Regimen) cholecalciferol (vitamin D3) 25 25 mcg PO QAM 01/12/21 06/30/24 History mcg (1,000 unit) capsule multivitamin 1 tab PO QAM 01/12/21 06/30/24 History tamsulosin 0.4 mg capsule (Flomax) 0.4 mg PO HS 01/12/21 06/30/24 History vitamin B complex (B 1 tab PO QAM 05/13/21 06/30/24 History Complex-Vitamin B12 tablet) mycophenolate mofetil 250 mg 500 mg PO BID 01/13/22 06/30/24 History capsule (CellCept) magnesium oxide 400 mg (241.3 mg 1,200 mg PO BID 08/07/22 06/30/24 History magnesium) tablet sodium di- and 1 tab PO BID 08/07/22 06/30/24 History monophosphate-potassium phos monobasic 250 mg tablet (Y-Fgjf-Cjwdssk) tacrolimus 1 mg capsule, 2 mg PO .COMPLEX 11/10/22 06/30/24 History immediate-release (Prograf) prednisone 5 mg tablet 5 mg PO QAM #90 tabs 06/28/23 06/30/24 Rx atenolol 25 mg tablet 25 mg PO HS #90 tabs 10/11/23 06/30/24 Rx simvastatin 20 mg tablet (Zocor) 20 mg PO HS #90 tabs 10/11/23 06/30/24 Rx Mucinex 1 tab PO DIRECTED PRN Other 06/04/24 06/30/24 History fluticasone propionate 110 1 puff inhalation BID #12 grams 06/26/24 06/30/24 Rx mcg/actuation HFA aerosol inhaler Past Med/Surg History Problem List Rhinovirus infection (Acute) Enterovirus infection (Acute) Hypoxia (Acute) Venous aneurysm Lower extremity edema (Acute) Hematoma of right lower leg (Acute) Hypomagnesemia BK polyoma viruria S/P kidney transplant (Acute) Hyperlipidemia (Chronic) Hypertension (Chronic) controlled, stable per pt Secondary hyperparathyroidism (Chronic) Per records, pt unaware End stage renal disease (Chronic) Hx dialysis (not currently), renal transplant 2020, Follows with Dr. Case and Monika Henley ([facility]) Polycystic kidney disease (Acute) Medical History A-V fistula Cellulitis of left leg Dialysis patient Elevated hemidiaphragm History of deep venous thrombosis (DVT) of distal vein of left lower extremity History of gout Traumatic open wound of right lower leg with delayed healing Surgical History History of surgery History of tonsillectomy History of wisdom tooth extraction Hx of colonoscopy Hx of kidney transplant S/P cardiac catheterization Family History Mother Diabetes Hypertension Polycystic kidney Other No family history of adverse response to anesthesia Denies family history of Ovarian cancer Prostate cancer Myocardial infarction Breast cancer Colorectal cancer Stroke Social History Smoking Status: Never smoker Second Hand Exposure: No; Do You Dip or Chew Tobacco: No; Hx Alcohol Use: No Hx Substance Use: No Preferred Language: German Communication Ability: Effective Visual Impairment: Limited Hearing Ability: Normal Ring Attacher Required: No Beliefs That Will Affect Care: None marital status: Single Current Living Situation: Alone Current Living Situation Comment: 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, 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 How many Children do You have: 0 Feels Safe at Home: Yes Childhood Exposure to Second-Hand Smoke: No Diet: regular caffeine: Yes (sometimes) during the past year weight has: remained stable Dental Care, Regularly: Yes Physical Activity Frequency: Daily Physical Activity Frequency Comment: active daily Seatbelt Use: always Sunscreen Use: Yes Do you think of yourself as: straight/heterosexual Gender Identity: Male Assistive Devices: None Review of Systems Review of Systems: See HPI above Physical Exam Physical Exam: General: no acute distress; non-toxic appearing; well-nourished; cooperative HEENT: normocephalic, atraumatic; no scleral icterus; PERRLA w/ EOMs intact; vision and hearing grossly intact Neck: supple; no lymphadenopathy; trachea midline Skin: warm, dry without signs of tenting; no cyanosis; no rashes, bruising, lesions, or erythema noted CV: chest wall NTP; RRR; S1/S2 normal; no murmurs/rubs/gallops; pulses intact and symmetric at radial, DP, and PT Lungs: no acute respiratory distress; symmetrical chest wall expansion; clear breath sounds across all lung ray w/o adventitious sounds; no wheezing ABD: Soft, NTP; BS present; no rebound/guarding; no distention MSK: no tics or fasciculations; no edema noted in the LEs b/l, nonerythematous Neuro: A&Ox3; normal mood and affect; fluent speech; no focal deficits; sensation grossly intact in the LEs b/l Results & Data Results & Data Vital Signs (Past 12 Hours) Vital Signs Temp Pulse Pulse Resp BP BP Pulse Ox 06/30/24 17:57 83 28 H 157/83 H 91 06/30/24 16:41 74 93 06/30/24 16:24 78 06/30/24 16:21 37.1 C 78 35 H 107/70 93 06/30/24 16:21 75 L 06/30/24 16:13 06/30/24 16:13 37.1 C 82 34 H 107/70 92 O2 Del Method O2 Flow Rate 06/30/24 17:57 Nasal Cannula 6 06/30/24 16:41 Nasal Cannula 6 06/30/24 16:24 06/30/24 16:21 Nasal Cannula 6 06/30/24 16:21 Room Air, Nasal Cannula 06/30/24 16:13 Nasal Cannula 6 06/30/24 16:13 Nasal Cannula 6 Laboratory Results Abnormal lab results 06/30/24 06/30/24 Range/Units 16:27 16:56 MCHC 30.4 L (32.0-36.0) g/dL RDW Std Deviation 49.7 H (36.4-46.3) fL RDW Coeff of Jenelle 16.6 H (11.5-14.5) % Neut # (Auto) 6.57 H (1.40-6.50) K/uL Lymph # (Auto) 0.48 L (1.20-3.40) K/uL D-Dimer 1020 H* (0-500) ug/L FEU VBG pH 7.32 L (7.36-7.41) VBG pCO2 68 H (38-50) mmHg Carbon Dioxide 35 H (21-32) mmol/L Glucose 111 H (70-99(Fasting)) mg/dl Troponin I High Sens 84.3 H* (0-20) pg/ml B-Natriuretic Peptide 420 H (0-100) pg/ml Diagnostic Findings Chest X-Ray 06/30/24 16:41 INDICATION: Cough. TECHNIQUE: Frontal radiograph of the chest. COMPARISON: Radiograph from 06/16/2024. FINDINGS: Multifocal infiltrates, slightly worsened from prior. No pneumothorax or pleural effusion. Cardiomegaly. Elevation of right hemidiaphragm, similar to prior. No acute fracture. IMPRESSION: Multifocal infiltrates, slightly worsened from prior. Electronically signed by Zach Hdz 06-30-2024 5:28 PM ECG Additional Comments: ECG revealed NSR at 87 bpm; QTc 416 Code Status & VTE Plan VTE Prophylaxis Plan VTE Prophylaxis will be ordered: Yes PG Care Time/CCT Total # of Minutes Spent Total Time Spent with Patient: Total time spent is greater than 50% in coordination of care (as documented) at patient's floor/unit and/or counseling patient: Coding [place] [address] INT INP/OBS CARE 3/75MIN Patient Type Established Medical Decision Making High Complexity
[2024-06-30] MEDS: OPTIRAY 320 125ml IV ONE (18:27)
[2024-06-30 19:17] LABS: Troponin I High Sensitivity 67.7 pg/ml (0-20)
--- NOTE | 2024-06-30 19:59 | History & Physical Report ---
Date of Service June 30, 2024 Assessment & Plan (1) Respiratory failure with hypercapnia: Plan: -Worsened oxygenation status at time of admission. -CBC benign, PT/INR normal. Elevated D-dimer. -CMP benign, Pro-Alan negative, magnesium normal. -BNP of 420, elevated troponin of 84 with 2-hour check of 67. -Respiratory BioFire positive for entero-/rhinovirus. -Chest x-ray showed multifocal infiltrates which is slightly worse from prior chest x-ray. -CTA chest negative for PE. Did show bilateral pericentral groundglass opacities, central lobar nodular infiltrates, and right lower lobe patchy consolidation. Acute infectious changes versus impending acute pulmonary edema -Given 40 mg of Lasix at time of admission -VBG initially showed a pH of 7.32, Repeat VBG at time of admission showed a worsening acidosis of 7.21 with a pCO2 of 95. -Started on BiPAP immediately. After an hour on BiPAP patient had an acidosis of 7.22 with a pCO2 of 90, bicarb of 37. -It was then discussed with the emergency department physician to intubate the patient and to send to ICU. -MRSA swab pending. -Blood cultures obtained at time of admission. -Started on Zosyn. Echo ordered for the a.m. Patient is immunocompromise due to kidney transplant and 2020 -Remainder of care to be directed by ICU team. (2) Rhinovirus infection: Plan: -As above. (3) Lower extremity edema: Plan: -Patient with lower extremity edema and findings on x-ray and CT chest which may be related to acute infection or pulmonary edema. -Given 40 mg of Lasix at time of admission. -No history of heart failure though no echo previously done. -Echo ordered for the a.m. (4) S/P kidney transplant: Plan: -Renal transplant back in 2020. -Continue on tacrolimus, prednisone, and mycophenolate. -Patient is immune compromised due to these medications and further workup of etiology of his respiratory failure with hypercapnia may be warranted. -Continue ICU care. (5) Hyperlipidemia: Plan: -Continue on simvastatin once medically stable. (6) Hypertension: Plan: -Continue with Tylenol once out of the ICU. (7) Secondary hyperparathyroidism: Plan: -Unknown to patient, may need previous records. (8) End stage renal disease: Plan: -Renal transplant back in 2020, follows with [facility]. -Creatinine stable at this time. History of Present Illness Chief Complaint: Hypoxia CHF exacerbation Primary Care Provider: Noman Wei DO Patient is a 53-year-old male with past medical history of polycystic kidney disease, ESRD s/p renal transplant, secondary hyperparathyroidism, hypertension, and hyperlipidemia. Patient presents to the hospital with difficulty breathing. Patient was seen recently in the hospital and sent home on 2 L of oxygen as well as Mucinex. Patient states that he had a fever today as well as worsening shortness of breath. States that he is also coughing more. Denies any nausea, vomiting, abdominal pain, or urinary issues. Patient states that he checked his oxygen today which was low so he upped his oxygen. Patient was brought in by EMS and had O2 saturations of 74%. He was placed on 6 L nasal cannula. He also had bilateral wheezing worse on the right side. They gave him a albuterol treatment en route to the hospital. Patient was very somnolent on admission. He was falling asleep while getting asked questions. Allergies Allergy/AdvReac Type Severity Reaction Status Date / Time No Known Drug Allergies Allergy Verified 06/30/24 14:44 Home Medications Medication Instructions Recorded Confirmed Type aspirin 81 mg tablet,delayed 81 mg PO QAM 01/12/21 06/30/24 History release (Adult Aspirin Regimen) cholecalciferol (vitamin D3) 25 25 mcg PO QAM 01/12/21 06/30/24 History mcg (1,000 unit) capsule multivitamin 1 tab PO QAM 01/12/21 06/30/24 History tamsulosin 0.4 mg capsule (Flomax) 0.4 mg PO HS 01/12/21 06/30/24 History vitamin B complex (Vitamins B 1 tab PO QAM 05/13/21 06/30/24 History Complex tablet) mycophenolate mofetil 250 mg 500 mg PO BID 01/13/22 06/30/24 History capsule (CellCept) magnesium oxide 400 mg (241.3 mg 1,200 mg PO BID 08/07/22 06/30/24 History magnesium) tablet sodium di- and 1 tab PO BID 08/07/22 06/30/24 History monophosphate-potassium phos monobasic 250 mg tablet (X-Usen-Etojzbg) tacrolimus 1 mg capsule, 2 mg PO .COMPLEX 11/10/22 06/30/24 History immediate-release (Prograf) prednisone 5 mg tablet 5 mg PO QAM #90 tabs 06/28/23 06/30/24 Rx atenolol 25 mg tablet 25 mg PO HS #90 tabs 10/11/23 06/30/24 Rx simvastatin 20 mg tablet (Zocor) 20 mg PO HS #90 tabs 10/11/23 06/30/24 Rx Mucinex 1 tab PO DIRECTED PRN Other 06/04/24 06/30/24 History fluticasone propionate 110 1 puff inhalation BID #12 grams 06/26/24 06/30/24 Rx mcg/actuation HFA aerosol inhaler Past Med/Surg History Problem List (Updated 07/01/24 @ 05:57 by AKIL Prieto) Acute on chronic respiratory failure with hypoxia and hypercapnia Respiratory failure with hypercapnia (Acute) Rhinovirus infection (Acute) Enterovirus infection (Acute) Hypoxia (Acute) Venous aneurysm Lower extremity edema (Acute) Hematoma of right lower leg (Acute) Hypomagnesemia BK polyoma viruria S/P kidney transplant (Acute) Hyperlipidemia (Chronic) Hypertension (Chronic) controlled, stable per pt Secondary hyperparathyroidism (Chronic) Per records, pt unaware End stage renal disease (Chronic) Hx dialysis (not currently), renal transplant 2020, Follows with Dr. Case and Monika Henley ([facility]) Polycystic kidney disease (Acute) Medical History Elevated hemidiaphragm R Traumatic open wound of right lower leg with delayed healing History of gout History of deep venous thrombosis (DVT) of distal vein of left lower extremity 08/2021 A-V fistula LUE Cellulitis of left leg Dialysis patient hx-no longer on dialysis Surgical History Hx of colonoscopy Hx of kidney transplant 12/25/20, [facility] History of surgery thrombectomy of left lower leg History of wisdom tooth extraction History of tonsillectomy S/P cardiac catheterization 2018 > no stents Family History Mother Diabetes Hypertension Polycystic kidney Other No family history of adverse response to anesthesia Denies family history of Ovarian cancer Prostate cancer Myocardial infarction Breast cancer Colorectal cancer Stroke Social History Smoking Status: Never smoker Second Hand Exposure: No; Do You Dip or Chew Tobacco: No; Tobacco Cessation Education Requested by Patient: No Hx Alcohol Use: No Hx Substance Use: No Preferred Language: Mauritian Communication Ability: Unable Visual Impairment: Limited Hearing Ability: Normal Electrician Constructor Supervisor Required: No Beliefs That Will Affect Care: None marital status: Single Current Living Situation: Alone Current Living Situation Comment: 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, 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 How many Children do You have: 0 Other Information That Helps Us Care for You: No Feels Safe at Home: Yes Safety Concerns: Afraid for Self Childhood Exposure to Second-Hand Smoke: No Diet: regular caffeine: Yes (sometimes) during the past year weight has: remained stable Dental Care, Regularly: Yes Physical Activity Frequency: Daily Physical Activity Frequency Comment: active daily Seatbelt Use: always Sunscreen Use: Yes Do you think of yourself as: straight/heterosexual Gender Identity: Male Assistive Devices: Glasses and Oxygen - Continuous Review of Systems Review of Systems: All systems reviewed & are unremarkable except as noted in HPI & below Physical Exam Physical Exam: Constitutional: Somnolent, well-nourished HEENT: NCAT, no conjunctival injection CV: regular rhythm, no murmur appreciated, extremities well-perfused, bilateral pitting edema Resp: Bilateral rhonchi GI: soft, nondistended, nontender, BS normoactive MSK: no gross deformities appreciated Skin: warm, dry, no rash appreciated Neuro: somnolent, no focal neurologic deficit appreciated Results & Data Results & Data Vital Signs (Past 12 Hours) Vital Signs Temp Pulse Pulse Resp BP BP Pulse Ox 06/30/24 19:00 82 32 H 141/77 H 91 06/30/24 17:57 83 28 H 157/83 H 91 06/30/24 16:41 74 93 06/30/24 16:24 78 06/30/24 16:21 37.1 C 78 35 H 107/70 93 06/30/24 16:21 75 L 06/30/24 16:13 06/30/24 16:13 37.1 C 82 34 H 107/70 92 O2 Del Method O2 Flow Rate 06/30/24 19:00 Oxymask 6 06/30/24 17:57 Nasal Cannula 6 06/30/24 16:41 Nasal Cannula 6 06/30/24 16:24 06/30/24 16:21 Nasal Cannula 6 06/30/24 16:21 Room Air, Nasal Cannula 06/30/24 16:13 Nasal Cannula 6 06/30/24 16:13 Nasal Cannula 6 Supervising Physician Co-Signing Physician Notes Patient seen and examined, chart reviewed, case discussed with Dr. Handy and I agree with the assessment and plan. 53yo with h/o renal transplant on immunosuppressive therapy presenting with acute hypoxic, hypercarbic respiratory failure. ?volume vs inflammation vs infection. Patient was recently started on supplemental O2 in May for what was believed to be a viral URI Intubated for hypercarbic respiratory failure, worsening mental status and failed BiPAP Lungs with scattered rales and rhonchi, no wheezes 2+ edema of bilateral LE Labs and images reviewed Assessment/plan -Admit to MICU -Lasix given -Check 2D echo -Broad spectrum antibiotics for now -Remainder as above Resident Activity Tracking Resident Involvement: Resident Care Provided Care Provided: Adult Hospital Medicine (5) Hyperlipidemia Hyperlipidemia type: unspecified Qualified Code(s): E78.5 - Hyperlipidemia, unspecified (6) Hypertension Hypertension type: unspecified Qualified Code(s): I10 - Essential (primary) hypertension
--- NOTE | 2024-06-30 20:48 | CT Scan Report ---
EXAM: CT angio chest PE protocol CLINICAL HISTORY: sob. TECHNIQUE: CT pulmonary angiography has been performed with I/V contrast. Coronal and sagittal reformatted images have also been acquired. One of these 3D techniques was utilized: Maximum Intensity Pixel (MIP), 3D Reconstructed Images, Volume Rendered Images, Surface Shaded Rendering. One of the following dose reduction techniques was utilized for this exam: Automated exposure control, adjustment of the mA and/or kV according to patient size, and use of iterative reconstruction. COMPARISON: Prior Chest X-ray dated 06/30/2024, 06/16/2024. FINDINGS: The main pulmonary artery trunk, its main and segmental branches show normal opacification. No thrombosis or area of stenosis was identified. The aorta and its main branches also show normal origin and opacification. No aneurysmal dilatation, thrombosis, dissection, or area of stenosis was seen. Bilateral paracentral ground glass opacification with centrilobular nodular infiltration is noted extending up to the periphery predominantly on the right. Patches of consolidation are also noted in the superior segment of the right lower lobe. Heart size appears normal. No pleural or pericardial effusion is noted. A 15 mm soft tissue shadowing seen in the left paratracheal recess is likely a reactive appearing lymph node. The rest of the mediastinal stations are clear. No evidence of pathologically enlarged axillary, and supraclavicular lymphadenopathy. The visualized skeleton shows mild degenerative changes. No lytic or sclerotic osseous lesion was seen. Slices acquired through the upper abdomen show multiple variable-sized cysts in the acquired liver and kidneys with thin linear calcific specks. IMPRESSION: 1. No radiological evidence of pulmonary embolism. 2. Bilateral paracentral ground glass opacification, centrilobular nodular infiltration, and right lower lobe patchy consolidation as described, these changes might represent acute infectious changes versus impending acute pulmonary edema. Please correlate with the clinical picture of the patient. No significant interval changes since the prior chest X-ray dated 06/16/2024. 3. Variable-sized cysts in the acquired liver and kidneys with thin linear calcific specks, likely represent polycystic kidney disease. Please correlate with history and previous imaging. Electronically signed by Marisela Burnett 06-30-2024 8:47 PM
[2024-06-30 21:09] LABS: Magnesium 2.1 mg/dl (1.7-2.4)
[2024-06-30 21:10] LABS: Base Excess VBG 6.5 mEq/L; HCO3 VBG 38 mmol/L; Oxygen Saturation VBG 90.5 %; PCO2 VBG 95 mmHg (38-50); PO2 VBG 68 mmHg; pH VBG 7.21 (7.36-7.41)
[2024-06-30] MEDS: FUROSEMIDE 40 MG/4 ML VIAL IV ONE (21:34)
[2024-06-30 22:13] LABS: Adenovirus PCR Not Detected (NotDetected); Bordetella parapertussis PCR Not Detected (NotDetected); Bordetella pertussis PCR Not Detected (NotDetected); Chlamydia pneumoniae PCR Not Detected (NotDetected); Coronavirus 229E PCR Not Detected (NotDetected); Coronavirus CoV-2 (COVID19)PCR Not Detected (NotDetected); Coronavirus HKU1 PCR Not Detected (NotDetected); Coronavirus NL63 PCR Not Detected (NotDetected); Coronavirus OC43PCR Not Detected (NotDetected); Human Metapneumovirus PCR Not Detected (NotDetected); Influenza A PCR Not Detected (NotDetected); Influenza B PCR Not Detected (NotDetected); Mycoplasma pneumoniae PCR Not Detected (NotDetected); Parainfluenza Virus 1 PCR Not Detected (NotDetected); Parainfluenza Virus 2 PCR Not Detected (NotDetected); Parainfluenza Virus 3 PCR Not Detected (NotDetected); Parainfluenza Virus 4 PCR Not Detected (NotDetected); Respiratory Syncytial VirusPCR Not Detected (NotDetected); Rhinovirus/Enterovirus PCR DETECTED (NotDetected)
[2024-06-30 22:19] LABS: iSTAT Arterial Blood Gas HCO3 37 meg/L (19-24); iSTAT Arterial Blood Gas pCO2 89 mmHg (35-46); iSTAT Arterial Blood Gas pH 7.22 (7.35-7.45); iSTAT Arterial Blood Gas pO2 94 mmHg (80-95); iSTAT Carbon Dioxide 39 mmol/L (24-31); iSTAT Hematocrit 53 % (42-52); iSTAT Potassium 5.1 mmol/L (3.3-5.0); iSTAT Sodium 137 mmol/L (135-144)
--- NOTE | 2024-06-30 22:41 | Emergency Department Note ---
History of Present Illness General Chief Complaint: Shortness of Breath/Dyspnea Stated Complaint: SOB Time Seen by Provider: 06/30/24 16:30 History of Present Illness Provider Complaint: shortness of breath Onset (ago): day(s) (4) Severity: severe Consistency/Duration: + progressively worsening Relieved By: + nothing Exacerbated By: + exertion and + coughing Associated symptoms: + cough, + wheezing, + sputum production and + chest congestion; no hemoptysis Treatment prior to arrival: bronchodilator Related Data Home oxygen amount: 2 liters Home Medications Medication Instructions Recorded Confirmed Type aspirin 81 mg tablet,delayed 81 mg PO QAM 01/12/21 06/30/24 History release (Adult Aspirin Regimen) cholecalciferol (vitamin D3) 25 25 mcg PO QAM 01/12/21 06/30/24 History mcg (1,000 unit) capsule multivitamin 1 tab PO QAM 01/12/21 06/30/24 History tamsulosin 0.4 mg capsule (Flomax) 0.4 mg PO HS 01/12/21 06/30/24 History vitamin B complex (Vitamins B 1 tab PO QAM 05/13/21 06/30/24 History Complex tablet) mycophenolate mofetil 250 mg 500 mg PO BID 01/13/22 06/30/24 History capsule (CellCept) magnesium oxide 400 mg (241.3 mg 1,200 mg PO BID 08/07/22 06/30/24 History magnesium) tablet sodium di- and 1 tab PO BID 08/07/22 06/30/24 History monophosphate-potassium phos monobasic 250 mg tablet (O-[id number]) tacrolimus 1 mg capsule, 2 mg PO .COMPLEX 11/10/22 06/30/24 History immediate-release (Prograf) prednisone 5 mg tablet 5 mg PO QAM #90 tabs 06/28/23 06/30/24 Rx atenolol 25 mg tablet 25 mg PO HS #90 tabs 10/11/23 06/30/24 Rx simvastatin 20 mg tablet (Zocor) 20 mg PO HS #90 tabs 10/11/23 06/30/24 Rx Mucinex 1 tab PO DIRECTED PRN Other 06/04/24 06/30/24 History fluticasone propionate 110 1 puff inhalation BID #12 grams 06/26/24 06/30/24 Rx mcg/actuation HFA aerosol inhaler Allergies Allergy/AdvReac Type Severity Reaction Status Date / Time No Known Drug Allergies Allergy Verified 06/30/24 14:44 Past Med/Surg History Problem List (Updated 07/01/24 @ 00:24 by Yoni Marks MD) Respiratory failure with hypercapnia (Acute) Rhinovirus infection (Acute) Enterovirus infection (Acute) Hypoxia (Acute) Venous aneurysm Lower extremity edema (Acute) Hematoma of right lower leg (Acute) Hypomagnesemia BK polyoma viruria S/P kidney transplant (Acute) Hyperlipidemia (Chronic) Hypertension (Chronic) controlled, stable per pt Secondary hyperparathyroidism (Chronic) Per records, pt unaware End stage renal disease (Chronic) Hx dialysis (not currently), renal transplant 2020, Follows with Dr. Case and Monika Henley (Formerly [facility]) Polycystic kidney disease (Acute) Medical History Elevated hemidiaphragm R Traumatic open wound of right lower leg with delayed healing History of gout History of deep venous thrombosis (DVT) of distal vein of left lower extremity 08/2021 A-V fistula LUE Cellulitis of left leg Dialysis patient hx-no longer on dialysis Surgical History Hx of colonoscopy Hx of kidney transplant 12/25/20, Formerly [facility] History of surgery thrombectomy of left lower leg History of wisdom tooth extraction History of tonsillectomy S/P cardiac catheterization 2018 > no stents Family History Mother Diabetes Hypertension Polycystic kidney Other No family history of adverse response to anesthesia Denies family history of Ovarian cancer Prostate cancer Myocardial infarction Breast cancer Colorectal cancer Stroke Social History Smoking Status: Never smoker Second Hand Exposure: No; Do You Dip or Chew Tobacco: No; Hx Alcohol Use: No Hx Substance Use: No Preferred Language: Burkinan Communication Ability: Effective Visual Impairment: Limited Hearing Ability: Normal Drama Professor Required: No Beliefs That Will Affect Care: None marital status: Single Current Living Situation: Alone Current Living Situation Comment: 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, 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 How many Children do You have: 0 Feels Safe at Home: Yes Childhood Exposure to Second-Hand Smoke: No Diet: regular caffeine: Yes (sometimes) during the past year weight has: remained stable Dental Care, Regularly: Yes Physical Activity Frequency: Daily Physical Activity Frequency Comment: active daily Seatbelt Use: always Sunscreen Use: Yes Do you think of yourself as: straight/heterosexual Gender Identity: Male Assistive Devices: None Physical Exam 2 Vital Signs: Vital Signs - 24 hr 06/30/24 16:13 06/30/24 16:13 06/30/24 16:21 Temperature 37.1 C Temperature Source Oral Pulse Rate 82 Pulse Rate [Apical ] Pulse Rhythm [Apic al] Pulse Strength [Ap ical] Respiratory Rate 34 H Respiratory Effort / Characteristics Respiratory Depth Respiratory Patter n Blood Pressure 107/70 Blood Pressure [Ri ght Arm] Blood Pressure Ariella n 82 Blood Pressure Ariella n [Right Arm] Blood Pressure Pos ition Semi-fowlers Blood Pressure Pos ition [Right Arm] Pulse Oximetry 92 75 L Oxygen Delivery Me thod Nasal Cannula Nasal Cannula Room Air Nasal Can nula Oxygen Flow Rate 6 6 Fraction of Inspir ed Oxygen Sepsis Recent Feve r Within 48 Hours No Sepsis New/Unexpla ined Change in Men kira Status N/A Sepsis Action Take n by Nursing No Action Required Oxygen Flow Rate - Titration 6 Pulse Oximetry Pos t Tiitration 93 06/30/24 16:21 06/30/24 16:24 06/30/24 16:41 Temperature 37.1 C Temperature Source Oral Pulse Rate 78 74 Pulse Rate [Apical ] 78 Pulse Rhythm [Apic al] Pulse Strength [Ap ical] Respiratory Rate 35 H Respiratory Effort / Characteristics Respiratory Depth Respiratory Patter n Blood Pressure Blood Pressure [Ri ght Arm] 107/70 Blood Pressure Ariella n Blood Pressure Ariella n [Right Arm] 82 Blood Pressure Pos ition Blood Pressure Pos ition [Right Arm] Semi-fowlers Pulse Oximetry 93 93 Oxygen Delivery Me thod Nasal Cannula Nasal Cannula Oxygen Flow Rate 6 6 Fraction of Inspir ed Oxygen Sepsis Recent Feve r Within 48 Hours Sepsis New/Unexpla ined Change in Men kira Status Sepsis Action Take n by Nursing Oxygen Flow Rate - Titration Pulse Oximetry Pos t Tiitration 06/30/24 17:57 06/30/24 19:00 06/30/24 20:10 Temperature Temperature Source Pulse Rate 86 Pulse Rate [Apical ] 83 82 Pulse Rhythm [Apic al] Pulse Strength [Ap ical] Respiratory Rate 28 H 32 H Respiratory Effort / Characteristics Respiratory Depth Respiratory Patter n Blood Pressure Blood Pressure [Ri ght Arm] 157/83 H 141/77 H Blood Pressure Ariella n Blood Pressure Ariella n [Right Arm] 107 98 Blood Pressure Pos ition Blood Pressure Pos ition [Right Arm] Semi-fowlers Semi-fowlers Pulse Oximetry 91 91 Oxygen Delivery Me thod Nasal Cannula [place] Oxygen Flow Rate 6 6 Fraction of Inspir ed Oxygen Sepsis Recent Feve r Within 48 Hours Sepsis New/Unexpla ined Change in Men kira Status Sepsis Action Take n by Nursing Oxygen Flow Rate - Titration Pulse Oximetry Pos t Tiitration 06/30/24 21:00 06/30/24 21:20 Temperature Temperature Source Pulse Rate 85 Pulse Rate [Apical ] 82 Pulse Rhythm [Apic al] Regular Pulse Strength [Ap ical] Normal Respiratory Rate 18 24 Respiratory Effort / Characteristics Non-Labored Sponta neous Respiratory Depth Shallow Normal Respiratory Patter n Regular Blood Pressure Blood Pressure [Ri ght Arm] 133/74 Blood Pressure Ariella n Blood Pressure Ariella n [Right Arm] 93 Blood Pressure Pos ition Blood Pressure Pos ition [Right Arm] Pulse Oximetry 92 95 Oxygen Delivery Me thod Nasal Cannula Oxygen Flow Rate 6 Fraction of Inspir ed Oxygen 50 Sepsis Recent Feve r Within 48 Hours Sepsis New/Unexpla ined Change in Men kira Status Sepsis Action Take n by Nursing Oxygen Flow Rate - Titration Pulse Oximetry Pos t Tiitration Physical Exam: Physical Exam GENERAL: oriented to person, place, and time. appears well-developed and well- nourished. HENT: Exam performed. - Head: Normocephalic and atraumatic. EYES: Conjunctivae and EOM are normal. Right eye exhibits no discharge. Left eye exhibits no discharge. No scleral icterus. NECK: Normal range of motion. Neck supple. No JVD present. CV: Normal rate, regular rhythm, normal heart sounds and intact distal pulses. There is no peripheral edema. Palpable radial pulses bue. PULM/CHEST: Rhonchi bilaterally. ABD: The abdomen is soft. There is no tenderness. NEURO: Motor and sensation grossly intact. SKIN: Skin is warm and dry. He is not diaphoretic. PSYCH: normal mood and affect. Behavior is normal. Judgment and thought content normal. Procedures Intubation Time out performed: Yes sedative: Etomidate Mg Given: 30 paralytic: Succinylcholine Mg Given: 200 Laryngoscope: fiber optic video scope ET Tube Size: 7 ET Tube Uncuffed: Yes Tube Placement Confirmation: visualized tube passing through cords, equal breath sounds bilaterally, no breath sounds over epigastrium and confirmation by capnometry Intubation Complications: difficult intubation Additional Comments: Patient was a difficult intubation. Initial attempt was made with hyperattenuated glide scope and the patient's airway was very anterior. Patient became hypoxic. Patient was bagged up with Ambu bag. Nasal airway was inserted and the patient was continued to be oxygenated with Ambu bag. Reattempt was tried with glide scope MAC 3 and the patient was successfully intubated. Course Course 1629: The patient was evaluated in room C2. A complete history and physical exam was performed Cardiac monitoring: An order was placed for continuous cardiac monitoring. The monitor shows a rate of 90 with sinus rhythm interpreted by me Patient was respiratory 2 L nasal cannula and was hypoxic, per EMS. Patient was placed on 6 L nasal cannula to bring patient flexion saturation. 1814: Vital signs stable on 6 L nasal cannula. Labs show a normal white blood cell count and hemoglobin. VBG shows a venous blood gas pH of 7.32 with pCO2 of 68. proBNP 420. High-sensitivity troponin 84.3. D-dimer is positive. Chest x-ray showed multifocal infiltrates slightly worse from the previous. There does not appear to be a great amount of vascular congestion or cardiomegaly when I viewed the patient's chest x-ray myself. Discussed the case with admitting team Dr. Jean Baptiste. I was slightly concerned to order CTA of the chest given the patient's history of kidney transplant however after discussion with Dr. Rivas we thought it would be best to order CTA to make sure there is no acute PE and not wait to obtain a VQ scan in the morning. 2099: CT of the chest negative for PE. Discussed the case with Dr. Ortiz resident for Dr. Hsu in the office of the patient. Dr. Gong placed an order for BiPAP for the patient. 2149: Repeat VBG showed worsening acidosis with a pH now 7.21 and venous pCO2 95. Will contact Dr. Shadi Javed who ordered the VBG. 2154: Dr. Shadi Zamora texted me and stated that the blood gas when patient was not on BiPAP. Will obtain ABG. 2218: ABG while the patient has been on BiPAP shows a pH of 7.22 with a venous pCO2 of 89, slightly improved. Dr. Hsu at bedside. Both she and I agreed to hold off on the patient at this time and see if the BiPAP improves the patient's breathing. 2340: Repeat blood gas showed that the patient's pCO2 was going back up to 90s. Dr. Hus and I discussed with send to intubate the patient. Patient was intubated, difficult intubation, see procedure note. Patient started on propofol drip and will be admitted to the ICU. Administered Medications Fentanyl Citrate (Fentanyl Citrate) 2,500 mcg in 250 mls @ 2.5 mls/hr IV .Q[facility]H [facility]; Protocol Stop: 07/14/24 23:44 Last Titration: 07/01/24 00:14 Dose: 75 mcg/hr, 7.5 mls/hr Documented By: JEREMIE Co-signed By: OLU Admin: 07/01/24 00:06 Dose: 25 mcg/hr, 2.5 mls/hr Documented By: JEREMIE Co-signed By: OLU Propofol (Diprivan) 1,000 mg in 100 mls @ 17.112 mls/hr IV .[id number] [facility]; Protocol Stop: 07/04/24 00:14 Last Titration: 07/01/24 00:14 Dose: 30 mcg/kg/min, 25.7 mls/hr Documented By: Admin: 07/01/24 00:07 Dose: 20 mcg/kg/min, 17.1 mls/hr Documented By: JEREMIE Co-signed By: CARLOS Discontinued Medications Fentanyl Citrate (Fentanyl Citrate 2,500 Mcg/250 Ml Bag) Confirm Administered Dose 2,500 mcg IV .STK-MED ONE Stop: 06/30/24 23:57 Last Admin: 07/01/24 00:07 Dose: Not Given Documented By: AnivalT Furosemide (Furosemide 40 Mg/4 Ml Vial) 40 mg IV ONE ONE Stop: 06/30/24 21:00 Last Admin: 06/30/24 21:34 Dose: 40 mg Documented By: LYNSEY Ioversol (Optiray 320 125ml) 116 ml IV ONCE ONE Stop: 06/30/24 18:26 Last Admin: 06/30/24 18:27 Dose: 116 ml Documented By: PARUL Miscellaneous (Rapid Sequence Induction Bag) Confirm Administered Dose 1 each N/A .STK-MED ONE Stop: 06/30/24 23:28 Last Admin: 07/01/24 00:07 Dose: Not Given Documented By: JEREMIE Propofol (Propofol Iv Emulsion 10 Mg/Ml 100 Ml Vial) Confirm Administered Dose 1,000 mg IV .STK-MED ONE Stop: 06/30/24 23:45 Last Admin: 07/01/24 00:07 Dose: Not Given Documented By: JEREMIE Medical Decision Making Medical Records Attestation: I reviewed the patient's medical records. External medical records reviewed. Patient was admitted from June 04 to June 06, 2024 for enterovirus rhinovirus pneumonia. Patient was discharged home with 2 L. Laboratory Data Attestation: I reviewed the patient's lab results. 06/30/24 16:27 06/30/24 16:27 Lab Results 06/30/24 06/30/24 06/30/24 Range/Units 16:27 16:56 18:40 WBC 7.93 (4.8-10.8) K/ul RBC 6.07 (4.70-6.10) M/uL Hgb 15.8 (14.0-18.0) g/dl POC Hgb (14.0-18.0) g/dl Hct 51.9 (42.0-52.0) % POC Hct (42-52) % MCV 85.5 (80.0-100.0) fL MCH 26.0 (25.0-34.0) pg MCHC 30.4 L (32.0-36.0) g/dL RDW Std Deviation 49.7 H (36.4-46.3) fL RDW Coeff of Jenelle 16.6 H (11.5-14.5) % Plt Count 175 (130-400) K/uL MPV 11.0 (9.4-12.4) fL Immature Gran % (Auto) 0.4 % Neut % (Auto) 82.8 % Lymph % (Auto) 6.1 % Hamblen % (Auto) 7.4 % Eos % (Auto) 2.9 % Baso % (Auto) 0.4 % Neut # (Auto) 6.57 H (1.40-6.50) K/uL Lymph # (Auto) 0.48 L (1.20-3.40) K/uL Hamblen # (Auto) 0.59 (0.11-0.59) K/uL Eos # (Auto) 0.23 (0.00-0.50) K/uL Baso # (Auto) 0.03 (0.00-0.20) K/uL Immature Gran # (Auto) 0.03 (0.01-0.20) K/uL PT 11.4 (9.0-12.0) Seconds INR 1.1 (0.9-1.1) APTT 28 (21-31) Seconds PTT Ratio 1.0 D-Dimer 1020 H* (0-500) ug/L FEU POC pH (7.35-7.45) POC pCO2 (35-46) mmHg POC pO2 (80-95) mmHg POC HCO3 (19-24) amee/L POC Total CO2 (24-31) mmol/L POC Base Excess (-9-1.8) amee/L POC ABG O2 Sat (90-95) % VBG pH 7.32 L (7.36-7.41) VBG pCO2 68 H (38-50) mmHg VBG pO2 64 mmHg VBG HCO3 35 mmol/L VBG O2 Saturation 92.7 % VBG Base Excess 6.5 mEq/L POC Sodium (135-144) mmol/L Sodium 140 (136-145) mmol/L POC Potassium (3.3-5.0) mmol/L Potassium 4.9 (3.5-5.1) mmol/L Chloride 101 (98-107) mmol/L Carbon Dioxide 35 H (21-32) mmol/L Anion Gap 4 (3-11) BUN 23 (6-23) mg/dl Creatinine 1.34 (0.6-1.4) mg/dl Est Cr Clr Drug Dosing 92.3 ml/min eGFR 62.95 BUN/Creatinine Ratio 17.2 (10-20) Glucose 111 H (70-99(Fasting)) mg/dl Lactate (0.4-2.0) mmol/L Calcium 9.5 (8.6-10.3) mg/dl Magnesium 2.1 (1.7-2.4) mg/dl Troponin I High Sens 84.3 H* 67.7 H* D (0-20) pg/ml B-Natriuretic Peptide 420 H (0-100) pg/ml Lipase 19 (11-82) U/L Procalcitonin (0-0.5) ng/ml Adenovirus (PCR) (NotDetected) B. pertussis DNA (PCR) (NotDetected) B.parapertussis DNA PCR (NotDetected) C. pneumoniae DNA (PCR) (NotDetected) Coronavirus OC43 (PCR) (NotDetected) Coronavirus HKU1 (PCR) (NotDetected) Coronavirus 229E (PCR) (NotDetected) SARS-CoV-2 (PCR) (NotDetected) Coronavirus NL63 (PCR) (NotDetected) Human Metapneumovir PCR (NotDetected) Influenza Type A (PCR) (NotDetected) Influenza Type B (PCR) (NotDetected) M. pneumoniae (PCR) (NotDetected) Parainfluenza 1 (PCR) (NotDetected) Parainfluenza 2 (PCR) (NotDetected) Parainfluenza 3 (PCR) (NotDetected) Parainfluenza 4 (PCR) (NotDetected) RSV (PCR) (NotDetected) Entero/Rhino (PCR) (NotDetected) 06/30/24 06/30/24 06/30/24 Range/Units 20:49 21:00 21:02 WBC (4.8-10.8) K/ul RBC (4.70-6.10) M/uL Hgb (14.0-18.0) g/dl POC Hgb (14.0-18.0) g/dl Hct (42.0-52.0) % POC Hct (42-52) % MCV (80.0-100.0) fL MCH (25.0-34.0) pg MCHC (32.0-36.0) g/dL RDW Std Deviation (36.4-46.3) fL RDW Coeff of Jenelle (11.5-14.5) % Plt Count (130-400) K/uL MPV (9.4-12.4) fL Immature Gran % (Auto) % Neut % (Auto) % Lymph % (Auto) % Hamblen % (Auto) % Eos % (Auto) % Baso % (Auto) % Neut # (Auto) (1.40-6.50) K/uL Lymph # (Auto) (1.20-3.40) K/uL Hamblen # (Auto) (0.11-0.59) K/uL Eos # (Auto) (0.00-0.50) K/uL Baso # (Auto) (0.00-0.20) K/uL Immature Gran # (Auto) (0.01-0.20) K/uL PT (9.0-12.0) Seconds INR (0.9-1.1) APTT (21-31) Seconds PTT Ratio D-Dimer (0-500) ug/L FEU POC pH (7.35-7.45) POC pCO2 (35-46) mmHg POC pO2 (80-95) mmHg POC HCO3 (19-24) amee/L POC Total CO2 (24-31) mmol/L POC Base Excess (-9-1.8) amee/L POC ABG O2 Sat (90-95) % VBG pH 7.21 L (7.36-7.41) VBG pCO2 95 H (38-50) mmHg VBG pO2 68 mmHg VBG HCO3 38 mmol/L VBG O2 Saturation 90.5 % VBG Base Excess 6.5 mEq/L POC Sodium (135-144) mmol/L Sodium (136-145) mmol/L POC Potassium (3.3-5.0) mmol/L Potassium (3.5-5.1) mmol/L Chloride (98-107) mmol/L Carbon Dioxide (21-32) mmol/L Anion Gap (3-11) BUN (6-23) mg/dl Creatinine (0.6-1.4) mg/dl Est Cr Clr Drug Dosing ml/min eGFR BUN/Creatinine Ratio (10-20) Glucose (70-99(Fasting)) mg/dl Lactate 0.6 (0.4-2.0) mmol/L Calcium (8.6-10.3) mg/dl Magnesium (1.7-2.4) mg/dl Troponin I High Sens (0-20) pg/ml B-Natriuretic Peptide (0-100) pg/ml Lipase (11-82) U/L Procalcitonin 0.09 (0-0.5) ng/ml Adenovirus (PCR) Not Detected (NotDetected) B. pertussis DNA (PCR) Not Detected (NotDetected) B.parapertussis DNA PCR Not Detected (NotDetected) C. pneumoniae DNA (PCR) Not Detected (NotDetected) Coronavirus OC43 (PCR) Not Detected (NotDetected) Coronavirus HKU1 (PCR) Not Detected (NotDetected) Coronavirus 229E (PCR) Not Detected (NotDetected) SARS-CoV-2 (PCR) Not Detected (NotDetected) Coronavirus NL63 (PCR) Not Detected (NotDetected) Human Metapneumovir PCR Not Detected (NotDetected) Influenza Type A (PCR) Not Detected (NotDetected) Influenza Type B (PCR) Not Detected (NotDetected) M. pneumoniae (PCR) Not Detected (NotDetected) Parainfluenza 1 (PCR) Not Detected (NotDetected) Parainfluenza 2 (PCR) Not Detected (NotDetected) Parainfluenza 3 (PCR) Not Detected (NotDetected) Parainfluenza 4 (PCR) Not Detected (NotDetected) RSV (PCR) Not Detected (NotDetected) Entero/Rhino (PCR) DETECTED A (NotDetected) 06/30/24 06/30/24 Range/Units 22:06 23:21 WBC (4.8-10.8) K/ul RBC (4.70-6.10) M/uL Hgb (14.0-18.0) g/dl POC Hgb 18.0 18.0 (14.0-18.0) g/dl Hct (42.0-52.0) % POC Hct 53 H 53 H (42-52) % MCV (80.0-100.0) fL MCH (25.0-34.0) pg MCHC (32.0-36.0) g/dL RDW Std Deviation (36.4-46.3) fL RDW Coeff of Jenelle (11.5-14.5) % Plt Count (130-400) K/uL MPV (9.4-12.4) fL Immature Gran % (Auto) % Neut % (Auto) % Lymph % (Auto) % Hamblen % (Auto) % Eos % (Auto) % Baso % (Auto) % Neut # (Auto) (1.40-6.50) K/uL Lymph # (Auto) (1.20-3.40) K/uL Hamblen # (Auto) (0.11-0.59) K/uL Eos # (Auto) (0.00-0.50) K/uL Baso # (Auto) (0.00-0.20) K/uL Immature Gran # (Auto) (0.01-0.20) K/uL PT (9.0-12.0) Seconds INR (0.9-1.1) APTT (21-31) Seconds PTT Ratio D-Dimer (0-500) ug/L FEU POC pH 7.22 L 7.22 L (7.35-7.45) POC pCO2 89 H 90 H (35-46) mmHg POC pO2 94 86 (80-95) mmHg POC HCO3 37 H 37 H (19-24) amee/L POC Total CO2 39 H 40 H (24-31) mmol/L POC Base Excess 9.0 H 9.0 H (-9-1.8) amee/L POC ABG O2 Sat 95.0 93.0 (90-95) % VBG pH (7.36-7.41) VBG pCO2 (38-50) mmHg VBG pO2 mmHg VBG HCO3 mmol/L VBG O2 Saturation % VBG Base Excess mEq/L POC Sodium 137 139 (135-144) mmol/L Sodium (136-145) mmol/L POC Potassium 5.1 H 4.7 (3.3-5.0) mmol/L Potassium (3.5-5.1) mmol/L Chloride (98-107) mmol/L Carbon Dioxide (21-32) mmol/L Anion Gap (3-11) BUN (6-23) mg/dl Creatinine (0.6-1.4) mg/dl Est Cr Clr Drug Dosing ml/min eGFR BUN/Creatinine Ratio (10-20) Glucose (70-99(Fasting)) mg/dl Lactate (0.4-2.0) mmol/L Calcium (8.6-10.3) mg/dl Magnesium (1.7-2.4) mg/dl Troponin I High Sens (0-20) pg/ml B-Natriuretic Peptide (0-100) pg/ml Lipase (11-82) U/L Procalcitonin (0-0.5) ng/ml Adenovirus (PCR) (NotDetected) B. pertussis DNA (PCR) (NotDetected) B.parapertussis DNA PCR (NotDetected) C. pneumoniae DNA (PCR) (NotDetected) Coronavirus OC43 (PCR) (NotDetected) Coronavirus HKU1 (PCR) (NotDetected) Coronavirus 229E (PCR) (NotDetected) SARS-CoV-2 (PCR) (NotDetected) Coronavirus NL63 (PCR) (NotDetected) Human Metapneumovir PCR (NotDetected) Influenza Type A (PCR) (NotDetected) Influenza Type B (PCR) (NotDetected) M. pneumoniae (PCR) (NotDetected) Parainfluenza 1 (PCR) (NotDetected) Parainfluenza 2 (PCR) (NotDetected) Parainfluenza 3 (PCR) (NotDetected) Parainfluenza 4 (PCR) (NotDetected) RSV (PCR) (NotDetected) Entero/Rhino (PCR) (NotDetected) Imaging Data Attestation: I personally reviewed and interpreted this imaging study as follows: My Impression: Chest x-ray at 2344 status post intubation: ET tube in place approximately 1 cm above the lotus. Radiologist's Impression: Chest X-Ray 06/30/24 16:41 INDICATION: Cough. TECHNIQUE: Frontal radiograph of the chest. COMPARISON: Radiograph from 06/16/2024. FINDINGS: Multifocal infiltrates, slightly worsened from prior. No pneumothorax or pleural effusion. Cardiomegaly. Elevation of right hemidiaphragm, similar to prior. No acute fracture. IMPRESSION: Multifocal infiltrates, slightly worsened from prior. Electronically signed by Zach Hdz 06-30-2024 5:28 PM Chest CTA 06/30/24 18:14 EXAM: CT angio chest PE protocol CLINICAL HISTORY: sob. TECHNIQUE: CT pulmonary angiography has been performed with I/V contrast. Coronal and sagittal reformatted images have also been acquired. One of these 3D techniques was utilized: Maximum Intensity Pixel (MIP), 3D Reconstructed Images, Volume Rendered Images, Surface Shaded Rendering. One of the following dose reduction techniques was utilized for this exam: Automated exposure control, adjustment of the mA and/or kV according to patient size, and use of iterative reconstruction. COMPARISON: Prior Chest X-ray dated 06/30/2024, 06/16/2024. FINDINGS: The main pulmonary artery trunk, its main and segmental branches show normal opacification. No thrombosis or area of stenosis was identified. The aorta and its main branches also show normal origin and opacification. No aneurysmal dilatation, thrombosis, dissection, or area of stenosis was seen. Bilateral paracentral ground glass opacification with centrilobular nodular infiltration is noted extending up to the periphery predominantly on the right. Patches of consolidation are also noted in the superior segment of the right lower lobe. Heart size appears normal. No pleural or pericardial effusion is noted. A 15 mm soft tissue shadowing seen in the left paratracheal recess is likely a reactive appearing lymph node. The rest of the mediastinal stations are clear. No evidence of pathologically enlarged axillary, and supraclavicular lymphadenopathy. The visualized skeleton shows mild degenerative changes. No lytic or sclerotic osseous lesion was seen. Slices acquired through the upper abdomen show multiple variable-sized cysts in the acquired liver and kidneys with thin linear calcific specks. IMPRESSION: 1. No radiological evidence of pulmonary embolism. 2. Bilateral paracentral ground glass opacification, centrilobular nodular infiltration, and right lower lobe patchy consolidation as described, these changes might represent acute infectious changes versus impending acute pulmonary edema. Please correlate with the clinical picture of the patient. No significant interval changes since the prior chest X-ray dated 06/16/2024. 3. Variable-sized cysts in the acquired liver and kidneys with thin linear calcific specks, likely represent polycystic kidney disease. Please correlate with history and previous imaging. Electronically signed by Marisela Burnett 06-30-2024 8:47 PM ECG Data Attestation: I personally reviewed and interpreted this ECG as follows: Interpretation: Sinus rhythm with a rate of 87. VA 114 QRS [address] ovation or ST depression. No delta wave. [facility] Narrative 1630: The patient was evaluated in room C2. A complete history and physical exam was performed Cardiac monitoring: An order was placed for continuous cardiac monitoring. The monitor shows a rate of 90 with sinus rhythm interpreted by me Patient was respiratory 2 L nasal cannula and was hypoxic, per EMS. Patient was placed on 6 L nasal cannula to bring patient flexion saturation. 1814: Vital signs stable on 6 L nasal cannula. Labs show a normal white blood cell count and hemoglobin. VBG shows a venous blood gas pH of 7.32 with pCO2 of 68. proBNP 420. High-sensitivity troponin 84.3. D-dimer is positive. Chest x-ray showed multifocal infiltrates slightly worse from the previous. There does not appear to be a great amount of vascular congestion or cardiomegaly when I viewed the patient's chest x-ray myself. Discussed the case with admitting team Dr. Jean Baptiste. I was slightly concerned to order CTA of the chest given the patient's history of kidney transplant however after discussion with Dr. Rivas we thought it would be best to order CTA to make sure there is no acute PE and not wait to obtain a VQ scan in the morning. 2100: CT of the chest negative for PE. Discussed the case with Dr. Ortiz resident for Dr. Hsu in the office of the patient. Dr. Gong placed an order for BiPAP for the patient. 0: Repeat VBG showed worsening acidosis with a pH now 7.21 and venous pCO2 95. Will contact Dr. Shadi Javed who ordered the VBG. 2154: Dr. Shadi Zamora texted me and stated that the blood gas when patient was not on BiPAP. Will obtain ABG. 8: ABG while the patient has been on BiPAP shows a pH of 7.22 with a venous pCO2 of 89, slightly improved. Dr. Hsu at bedside. Both she and I agreed to hold off on the patient at this time and see if the BiPAP improves the patient's breathing. 2340: Repeat blood gas showed that the patient's pCO2 was going back up to 90s. Dr. Hsu and I discussed with send to intubate the patient. Patient was intubated, difficult intubation, see procedure note. Patient started on propofol drip and will be admitted to the ICU. Impression & Plan Respiratory failure with hypercapnia Critical Care Time Critical Care Time: Yes Total Critical Care Time: 54 I have personally spent greater than 54 minutes of critical care time in the direct management of this patient. This includes bedside care, interpretation of diagnostic studies, and testing, discussion with consultants, patient, and family members, and other required patient management activities. This 54 minutes is in excess of all separately billable procedures. Discharge Plan Visit Data Chief Complaint: Shortness of Breath/Dyspnea Stated Complaint: SOB ED Provider: Yoni Marks Discharge Problem: Respiratory failure with hypercapnia Patient Disposition: Admitted As Inpatient Forms Stand Alone Forms: My [facility] Prescriptions Prescriptions: No Action fluticasone propionate 110 mcg/actuation HFA aerosol inhaler 1 puff inhalation BID Qty: 12 2RF vitamin B complex [Vitamins B Complex] Tablet 1 tab PO QAM tacrolimus [Prograf] 1 mg capsule 2 mg PO .COMPLEX Rx Instructions: 2 mg orally 2MG AM/ 1.5MG PM; atenolol 25 mg tablet 25 mg PO HS Qty: 90 3RF simvastatin [Zocor] 20 mg tablet 20 mg PO HS Qty: 90 3RF V-Kcsx-Fzegixe 250 mg tablet 1 tab PO BID prednisone 5 mg tablet 5 mg PO QAM Qty: 90 3RF aspirin [Adult Aspirin Regimen] 81 mg tablet,delayed release (DR/EC) 81 mg PO QAM tamsulosin [Flomax] 0.4 mg capsule 0.4 mg PO HS multivitamin Tablet 1 tab PO QAM cholecalciferol (vitamin D3) 25 mcg (1,000 unit) capsule 25 mcg PO QAM mycophenolate mofetil [CellCept] 250 mg capsule 500 mg PO BID magnesium oxide 400 mg (241.3 mg magnesium) tablet 1,200 mg PO BID Rx Instructions: 3 TABLETS IN AM, 3 TABLETS AT NIGHTTIME - 400mg Tablets. Mucinex 1 tab PO DIRECTED PRN (Reason: Other) Referrals Referrals: Noman Wei, [Primary Care Provider] -
[2024-06-30 23:38] LABS: iSTAT Arterial Blood Gas HCO3 37 meg/L (19-24); iSTAT Arterial Blood Gas pCO2 90 mmHg (35-46); iSTAT Arterial Blood Gas pH 7.22 (7.35-7.45); iSTAT Arterial Blood Gas pO2 86 mmHg (80-95); iSTAT Carbon Dioxide 40 mmol/L (24-31); iSTAT Hematocrit 53 % (42-52); iSTAT Potassium 4.7 mmol/L (3.3-5.0); iSTAT Sodium 139 mmol/L (135-144)
[2024-06-30] MEDS ORDERED: STAT IV Infusion **Titration per Protocol STA (23:56)
[2024-06-30] MEDS ORDERED: fentaNYL BOLUS from BAG IV PRN (23:56)
[2024-07-01] MEDS ORDERED: PROPOFOL BOLUS FROM BAG IV PRN ×2 (00:04→04:11)
[2024-07-01] MEDS: fentaNYL citrate 2,500 MCG/250 ML BAG IV SCH (00:06)
[2024-07-01] MEDS: PROPOFOL IV EMULSION 10 MG/ML 100 ML VIAL IV ONE (00:07)
[2024-07-01] MEDS: propofoL 1,000 MG/100 ML VIAL IV SCH (00:07)
[2024-07-01] MEDS: RAPID SEQUENCE INDUCTION BAG ONE (00:07)
[2024-07-01] MEDS: fentaNYL citrate 2,500 MCG/250 ML BAG IV ONE (00:07)
[2024-07-01] MEDS: STAT IV Infusion **Titration per Protocol STA (00:22)
[2024-07-01 01:07] LABS: iSTAT Arterial Blood Gas HCO3 39 meg/L (19-24); iSTAT Arterial Blood Gas pCO2 112 mmHg (35-46); iSTAT Arterial Blood Gas pH 7.14 (7.35-7.45); iSTAT Arterial Blood Gas pO2 92 mmHg (80-95); iSTAT Carbon Dioxide 42 mmol/L (24-31); iSTAT Hematocrit 53 % (42-52); iSTAT Potassium 5.2 mmol/L (3.3-5.0); iSTAT Sodium 138 mmol/L (135-144)
--- NOTE | 2024-07-01 01:13 | Critical Care Consultation ---
Date of Consultation July 01, 2024 Assessment & Plan (1) Acute on chronic respiratory failure with hypoxia and hypercapnia: Reason Critically Ill: 53-year-old immunosuppressed male with past medical history of kidney transplant, HTN, HLD and recent diagnosis of rhinovirus with home oxygen, presents to the ICU with acute respiratory failure with hypercapnia hypoxia Neuro - Sedation: Propofol, fentanyl drips Cardiac - HTNhold atenolol as pressure soft with sedation HLDhold statin for now Respiratory - Acute hypoxic and hypercapnic respiratory failurelikely infectious given underlying rhinovirus and possible secondary bacterial infection in immunocompromised patient. Now requiring mechanical ventilation -See ID for treatment of pneumonia below - Lungs wheezing on exam. HCO3 elevated and cannot rule out undiagnosed pulmonary disease with COPD versus ILD. Will start on Solu-Medrol and scheduled DuoNeb for now - BNP slightly elevated, given 40 Lasix in the emergency department with appropriate response. Careful with aggressive diuresis given kidney transplant - TTE to rule out CHF - Follow-up morning chest x-ray and ABG - Continuous End-tidal CO2 and pulse ox monitoring -Wean FiO2 as tolerated GI - N.p.o. for now PPI RENAL/LYTES - S/p donor kidney transplant reatinine appears to be within previous baseline. No electrolyte abnormalities or Metabolic acid-base imbalance - Hold prednisone in favor of Solu-Medrol for respiratory - Continue tacrolimus, CellCept - IV fluid on hold due to diuresis/respiratory failure - Monitor routine BMPs replete electrolytes as indicated -Consulted nephrology - Foleystrict I's and O's ENDO - No history of diabetes or thyroid disease HEME - H&H stable, monitor routine CBC ID - Sepsis Patient immunocompromised with bio fire positive for rhinovirus and CT imaging consistent with multifocal pneumonia. Cannot rule out secondary bacterial infection. - Nasal MRSA negative - Blood cultures and sputum culture pending - Pro-Alan within normal limits. No leukocytosis, no fevers. However patient is immunocompromised. Will obtain CRP and LDH in addition - Continue Zosyn for now LINES/IV ACCESS - Peripheral IVs DVT PROPHYLAXIS - SCDs I have personally spent 52 minutes of critical care time in the direct management of this patient. This is a life/limb threatening event. This includes time spent evaluating patient, direct bedside care, chart review, placing orders, interpretation of diagnostic studies, discussion with consultants, patient, and family members, as well as other required patient management activities. This time is exclusive of all separately billable procedures, and teaching time and separate from and in addition to any other critical care service time. Thank you for allowing us to participate in the care of this patient. Please refer to my attending physician's documentation for any further recommendations. (2) Rhinovirus infection: (3) S/P kidney transplant: (4) Hyperlipidemia: (5) Hypertension: Supervising Physician Co-Signing Physician Notes Patient seen and examined. EMR reviewed. Discussed with pulmonary critical care MESHA. Agree with assessment plan as noted. Films were independently reviewed this morning. Given the possibility of infectious etiology elected to proceed with fiberoptic bronchoscopy with bronchoalveolar lavage. Please see separate procedure note. Lavage was clear with no evidence of pulmonary hemorrhage. Given the complexities and immune suppressed status, will obtain infectious disease consultation to assist in management of antimicrobial therapies. Nephrology consultation will also be obtained to assist in dosing of immunosuppressive medications. Will hold on enteral feeding for now in hopes that the patient can be liberated from the ventilator within the next 24 hours. If unable to liberate, will consider initiation of enteral feeding at that point in time. Patient is at risk for relative adrenal insufficiency given his immunocompromise status. Will place on stress dose steroids. His last cortisol last month was low. Patient remains critically ill at this point in time. An additional 45 minutes of critical care time was spent in evaluation management coordination of care for this patient with multiorgan system dysfunction including discussion on multidisciplinary rounds and with other consultants. History of Present Illness Attending Physician: Filemon Quinn MD History of Present Illness Patient is a 53-year-old male with past medical history of kidney transplant in 2020 at [facility] (currently on prednisone, tacrolimus, CellCept), HTN who presented to the emergency department earlier this evening with shortness of breath. He was recently discharged from the hospital after being found to have rhinovirus and was sent home on 2 L oxygen. On arrival to the hospital patient underwent CTA chest which was negative for PE, Was found to have bilateral groundglass opacifications concerning for infection versus pulmonary edema. Patient was noted to be hypoxic and hypercapnic which continued to progress and eventually required BiPAP. Patient became progressively hypercapnic on BiPAP and required intubation in the emergency department, after which she is being transferred to ICU for further management. Allergies Allergy/AdvReac Type Severity Reaction Status Date / Time No Known Drug Allergies Allergy Verified 06/30/24 14:44 Home Medications Medication Instructions Recorded Confirmed Type aspirin 81 mg tablet,delayed 81 mg PO QAM 01/12/21 06/30/24 History release (Adult Aspirin Regimen) cholecalciferol (vitamin D3) 25 25 mcg PO QAM 01/12/21 06/30/24 History mcg (1,000 unit) capsule multivitamin 1 tab PO QAM 01/12/21 06/30/24 History tamsulosin 0.4 mg capsule (Flomax) 0.4 mg PO HS 01/12/21 06/30/24 History vitamin B complex (Vitamins B 1 tab PO QAM 05/13/21 06/30/24 History Complex tablet) mycophenolate mofetil 250 mg 500 mg PO BID 01/13/22 06/30/24 History capsule (CellCept) magnesium oxide 400 mg (241.3 mg 1,200 mg PO BID 08/07/22 06/30/24 History magnesium) tablet sodium di- and 1 tab PO BID 08/07/22 06/30/24 History monophosphate-potassium phos monobasic 250 mg tablet (C-Czru-Ymufanh) tacrolimus 1 mg capsule, 2 mg PO .COMPLEX 11/10/22 06/30/24 History immediate-release (Prograf) prednisone 5 mg tablet 5 mg PO QAM #90 tabs 06/28/23 06/30/24 Rx atenolol 25 mg tablet 25 mg PO HS #90 tabs 10/11/23 06/30/24 Rx simvastatin 20 mg tablet (Zocor) 20 mg PO HS #90 tabs 10/11/23 06/30/24 Rx Mucinex 1 tab PO DIRECTED PRN Other 06/04/24 06/30/24 History fluticasone propionate 110 1 puff inhalation BID #12 grams 06/26/24 06/30/24 Rx mcg/actuation HFA aerosol inhaler Patient History Medical History Elevated hemidiaphragm R Traumatic open wound of right lower leg with delayed healing History of gout History of deep venous thrombosis (DVT) of distal vein of left lower extremity 08/2021 A-V fistula LUE Cellulitis of left leg Dialysis patient hx-no longer on dialysis Surgical History Hx of colonoscopy Hx of kidney transplant 12/25/20, [facility] History of surgery thrombectomy of left lower leg History of wisdom tooth extraction History of tonsillectomy S/P cardiac catheterization 2019 > no stents Family History Mother Diabetes Hypertension Polycystic kidney Other No family history of adverse response to anesthesia Denies family history of Ovarian cancer Prostate cancer Myocardial infarction Breast cancer Colorectal cancer Stroke Social History Smoking Status: Never smoker Second Hand Exposure: No; Do You Dip or Chew Tobacco: No; Tobacco Cessation Education Requested by Patient: No Hx Alcohol Use: No Hx Substance Use: No Preferred Language: Hungarian Communication Ability: Unable Visual Impairment: Limited Hearing Ability: Normal Traffic Checker Required: No Beliefs That Will Affect Care: None marital status: Single Current Living Situation: Alone Current Living Situation Comment: 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, 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 How many Children do You have: 0 Other Information That Helps Us Care for You: No Feels Safe at Home: Yes Safety Concerns: Afraid for Self Childhood Exposure to Second-Hand Smoke: No Diet: regular caffeine: Yes (sometimes) during the past year weight has: remained stable Dental Care, Regularly: Yes Physical Activity Frequency: Daily Physical Activity Frequency Comment: active daily Seatbelt Use: always Sunscreen Use: Yes Do you think of yourself as: straight/heterosexual Gender Identity: Male Assistive Devices: Glasses and Oxygen - Continuous Review of Systems Review of Systems: Unobtainable due to cognitive status and Unobtainable due to endotracheal tube Physical Exam Constitutional: + obese and + mechanically ventilated Eyes: PERRL, conjunctivae normal, anicteric sclerae ENMT: external ear and nose normal, oropharynx normal Neck: trachea midline, no thyromegaly Respiratory: Wheezes auscultated bilaterally diminished lower lobes. Symmetrical chest wall movement. Mechanically ventilated with normal compliance and respiratory effort Cardiovascular: RRR, no murmur, no edema Heart Sounds: normal S1 and normal S2; no murmur Extremities: no edema Gastrointestinal (Abdomen): normal bowel sounds, soft, nontender, no hepatosplenomegaly Musculoskeletal: no cyanosis or clubbing, extremities motor strength 5/5 Skin: no rashes, warm and dry Neurologic: Unable to assess due to sedation Psychiatric: Unable to assess due to sedation Results & Data Results & Data Vital Signs (Past 12 Hours) Vital Signs Temp Pulse Pulse Resp BP BP Pulse Ox 07/01/24 00:48 74 26 H 84/50 L 96 07/01/24 00:42 80 26 H 99/61 L 96 07/01/24 00:30 106/62 07/01/24 00:21 84 19 110/62 90 07/01/24 00:18 79 14 104/77 87 L 07/01/24 00:15 75 16 104/77 87 L 07/01/24 00:00 83 18 136/78 94 06/30/24 23:33 60 126/81 98 06/30/24 21:20 85 24 95 06/30/24 21:00 82 18 133/74 92 06/30/24 20:10 86 06/30/24 19:00 82 32 H 141/77 H 91 06/30/24 17:57 83 28 H 157/83 H 91 06/30/24 16:41 74 93 06/30/24 16:24 78 06/30/24 16:21 37.1 C 78 35 H 107/70 93 06/30/24 16:21 75 L 06/30/24 16:13 06/30/24 16:13 37.1 C 82 34 H 107/70 92 O2 Del Method O2 Flow Rate FiO2 07/01/24 00:48 Mechanical Vent 100 07/01/24 00:42 Mechanical Vent 100 07/01/24 00:30 07/01/24 00:21 Mechanical Vent 100 07/01/24 00:18 Mechanical Vent 100 07/01/24 00:15 Mechanical Vent 100 07/01/24 00:00 Mechanical Vent 100 06/30/24 23:33 BiPAP 50 06/30/24 21:20 50 06/30/24 21:00 Nasal Cannula 6 06/30/24 20:10 06/30/24 19:00 Oxymask 6 06/30/24 17:57 Nasal Cannula 6 06/30/24 16:41 Nasal Cannula 6 06/30/24 16:24 06/30/24 16:21 Nasal Cannula 6 06/30/24 16:21 Room Air, Nasal Cannula 06/30/24 16:13 Nasal Cannula 6 06/30/24 16:13 Nasal Cannula 6 Coding Level of Care Code 63633 CRITICAL CARE EA ADD 30M Diagnoses Acute on chronic respiratory failure with hypoxia and hypercapnia J96.21; J96.22 Rhinovirus infection B34.8 S/P kidney transplant Z94.0 Hyperlipidemia, unspecified hyperlipidemia type E78.5 Hyperlipidemia type: unspecified Hypertension, unspecified type I10 Hypertension type: unspecified (4) Hyperlipidemia Hyperlipidemia type: unspecified Qualified Code(s): E78.5 - Hyperlipidemia, unspecified (5) Hypertension Hypertension type: unspecified Qualified Code(s): I10 - Essential (primary) hypertension
--- NOTE | 2024-07-01 01:28 | XRay Report ---
EXAM: XR chest 1V portable CLINICAL HISTORY: NG PLACEMENT BEST POSSIBLE. TECHNIQUE: X-ray image of the lower left chest/upper abdomen is obtained in AP projection. COMPARISON: 06/30/2024 16:06:00 DISPLAY CARD WRITER. FINDINGS: Limited use to the left lower chest and upper abdomen. There is a tube noted in the midline of the lower chest, traversing the diaphragm to the left subdiaphragmatic area, its tip is not visualized due to overlying soft tissue shadows, however, it progresses more than 10 cm from the gastroesophageal junction. No left-sided pleural effusion. Prominent ventricular visualized bronchovascular markings of the left lower zone. IMPRESSION: 1. Suboptimal image, only the lower left chest and left upper abdomen are visualized with suboptimal penetration. 2. A tube traversing the diaphragm to the left upper abdomen is likely the NG tube most likely within the stomach, however, its proximal course is not visualized. Clinical correlation is advised. (New finding). Follow-up is suggested if clinically indicated. Electronically signed by Marisela Burnett 07-01-2024 01:27 AM
[2024-07-01] MEDS ORDERED: ONDANSETRON INJ 2 MG/ML 2 ML VIAL IV PRN (01:34)
[2024-07-01] MEDS ORDERED: ACETAMINOPHEN 325 MG TAB PO PRN (01:34)
[2024-07-01 02:27] LABS: iSTAT Allen Test Pass; iSTAT Art Bld Gas pCO2 Correct 58 mmHg (35-46); iSTAT Art Bld Gas pH Corrected 7.388 (7.35-7.45); iSTAT Arterial Blood Gas HCO3 35 meg/L (19-24); iSTAT Arterial Blood Gas pCO2 57 mmHg (35-46); iSTAT Arterial Blood Gas pH 7.39 (7.35-7.45); iSTAT Arterial Blood Gas pO2 60 mmHg (80-95); iSTAT Arterial Blood Gas pO2 C 61; iSTAT Carbon Dioxide 36 mmol/L (24-31); iSTAT FiO2 50 %; iSTAT Hematocrit 51 % (42-52); iSTAT Hemoglobin 17.3 g/dl (14.0-18.0); iSTAT Potassium 5.1 mmol/L (3.3-5.0); iSTAT Sample Type Arterial; iSTAT Site R Radial; iSTAT Sodium 138 mmol/L (135-144); iSTAT SpO2 97
[2024-07-01] MEDS: methylPREDNISolone 125 MG/2 ML VIAL IV STA (02:39)
[2024-07-01 02:40] LABS: Albumin Level 3.6 gm/dl (3.4-5.0); Anion Gap 5 (3-11); Calcium 8.9 mg/dl (8.6-10.3); Carbon Dioxide 34 mmol/L (21-32); Chloride 97 mmol/L (98-107); Magnesium 2.1 mg/dl (1.7-2.4); Sodium 136 mmol/L (136-145)
[2024-07-01 02:40] LABS: Base Excess VBG 11.6 mEq/L; HCO3 VBG 40 mmol/L; Oxygen Saturation VBG < 60.0 %; PCO2 VBG 69 mmHg (38-50); PO2 VBG < 20 mmHg; pH VBG 7.37 (7.36-7.41)
[2024-07-01 02:46] LABS: Basophils # (auto) 0.05 K/uL (0.00-0.20); Basophils % (auto) 0.7 %; Eosinophils % (auto) 5.2 %; Hematocrit (blood only) 53.4 % (42.0-52.0); Hemoglobin 15.9 g/dl (14.0-18.0); Immature Granulocytes # (auto) 0.03 K/uL (0.01-0.20); Immature Granulocytes % (auto) 0.4 %; Lymphocytes # (auto) 0.73 K/uL (1.20-3.40); Lymphocytes % (auto) 9.5 %; Mean Corpuscular Hemoglobin 25.9 pg (25.0-34.0); Mean Corpuscular Hgb Conc 29.8 g/dL (32.0-36.0); Mean Platelet Volume 10.6 fL (9.4-12.4); Monocytes # (auto) 0.67 K/uL (0.11-0.59); Monocytes % (auto) 8.7 %; Neutrophils % (auto) 75.5 %; Platelet Count 197 K/uL (130-400); RDW Coefficient of Variation 17.7 % (11.5-14.5); RDW Standard Deviation 52.3 fL (36.4-46.3); Red Blood Count 6.14 M/uL (4.70-6.10); White Blood Count 7.68 K/ul (4.8-10.8)
[2024-07-01] MEDS: 4.5GM X1 IV STA (03:19)
[2024-07-01 03:24] LABS: Alanine Aminotransferase 20 U/L (7-52); Albumin Globulin Ratio 1.9 (0.9-2); Alkaline Phosphatase 73 U/L (34-104); Aspartate Aminotransferase 27 U/L (13-39); BUN Creatinine Ratio 14.6 (10-20); Blood Urea Nitrogen 24 mg/dl (6-23); C Reactive Protein 2.44 mg/dl (0-0.5); Globulin 1.9 gm/dl (2.5-4.0); Glucose 95 mg/dl (70-99(Fasting)); Phosphorus 4.4 mg/dl (2.5-4.9); Total Protein 5.5 gm/dl (6.0-8.3)
--- NOTE | 2024-07-01 03:26 | XRay Report ---
Exam(s): XR CXR 1 VIEW EXAM: XR Chest, 1 View CLINICAL HISTORY: ett placement. TECHNIQUE: Frontal view of the chest. COMPARISON: 06/30/2024. FINDINGS: Endotracheal tube tip is 1 cm above the lotus. Heart is normal size. Hypoventilation with slight increase in diffuse infiltrate/atelectasis. No pleural effusion or pneumothorax. Bones are unchanged. IMPRESSION: Endotracheal tube tip approximately 1 cm above the lotus. Electronically signed by: Don Riley M.D. 07/01/24 03:24 AM
[2024-07-01] MEDS ORDERED: fentaNYL BOLUS from BAG IV PRN (04:11)
[2024-07-01] MEDS ORDERED: STAT IV Infusion **Titration per Protocol STA (04:11)
[2024-07-01] MEDS ORDERED: propofoL 1,000 MG/100 ML VIAL IV SCH (04:15)
[2024-07-01] MEDS ORDERED: fentaNYL citrate 2,500 MCG/250 ML BAG IV SCH (04:15)
[2024-07-01] MEDS: PHENYLEPHRINE HCL 25 MG/250 ML NSS IV ONE (04:26)
[2024-07-01] MEDS: PHENYLEPHRINE/NSS 25 MG/250 ML BAG IV SCH (04:26)
[2024-07-01 05:28] LABS: iSTAT Allen Test Pass; iSTAT Art Bld Gas pCO2 Correct 34 mmHg (35-46); iSTAT Art Bld Gas pH Corrected 7.546 (7.35-7.45); iSTAT Arterial Blood Gas HCO3 29 meg/L (19-24); iSTAT Arterial Blood Gas pCO2 33 mmHg (35-46); iSTAT Arterial Blood Gas pH 7.56 (7.35-7.45); iSTAT Arterial Blood Gas pO2 56 mmHg (80-95); iSTAT Arterial Blood Gas pO2 C 59; iSTAT Carbon Dioxide 30 mmol/L (24-31); iSTAT FiO2 50 %; iSTAT Hematocrit 54 % (42-52); iSTAT Hemoglobin 18.4 g/dl (14.0-18.0); iSTAT Sample Type Arterial; iSTAT Site R Radial; iSTAT Sodium 137 mmol/L (135-144); iSTAT SpO2 93
[2024-07-01] MEDS: ICU Protocol for HYPERglycemia SCH (05:42)
--- NOTE | 2024-07-01 06:59 | Billing Data ---
Date of Service June 30, 2024 Coding Level of Care Code 62228 CRITICAL CARE
[2024-07-01] MEDS: ALBUT/IPRATROP 3MG/0.5MG NEB 3 ML VIAL NEB SCH (07:46)
[2024-07-01 08:06] LABS: iSTAT Allen Test Pass; iSTAT Art Bld Gas pCO2 Correct 41 mmHg (35-46); iSTAT Art Bld Gas pH Corrected 7.505 (7.35-7.45); iSTAT Arterial Blood Gas HCO3 32 meg/L (19-24); iSTAT Arterial Blood Gas pCO2 40 mmHg (35-46); iSTAT Arterial Blood Gas pH 7.51 (7.35-7.45); iSTAT Arterial Blood Gas pO2 218 mmHg (80-95); iSTAT Arterial Blood Gas pO2 C 220; iSTAT Carbon Dioxide 34 mmol/L (24-31); iSTAT FiO2 100 %; iSTAT Hematocrit 54 % (42-52); iSTAT Hemoglobin 18.4 g/dl (14.0-18.0); iSTAT Sample Type Arterial; iSTAT Site R Radial; iSTAT Sodium 136 mmol/L (135-144); iSTAT SpO2 97
[2024-07-01] MEDS: MYCOPHENOLATE MOFETIL 250 MG CAP PO SCH (08:15)
[2024-07-01] MEDS: ASPIRIN 81 MG ECTAB PO SCH (08:15)
[2024-07-01] MEDS: PANTOprazole 40 MG TAB PO SCH (08:16)
[2024-07-01] MEDS: PIPERACILLIN/TAZOBACTAM 4.5 GM/100 ML BAG IV SCH (08:53)
[2024-07-01] MEDS: methylPREDNISolone 40 MG in SYRINGE 0 ML IV SCH (08:53)
[2024-07-01] MEDS ORDERED: methylPREDNISolone 125 MG/2 ML VIAL IV SCH (09:00)
[2024-07-01] MEDS ORDERED: predniSONE 5 MG TAB PO SCH (09:00)
--- NOTE | 2024-07-01 10:18 | Hospitalist Progress Note ---
Date of Service July 01, 2024 Assessment & Plan (1) Sepsis: Plan: suspected sepsis likely due to multifocal pneumonia with acute on chronic hypercapnic and hypoxic respiratory failure. Present on admission Blood cultures pending continue empiric antibiotics (2) Respiratory failure with hypercapnia: Plan: -Worsened oxygenation status at time of admission. -Currently intubated and ventilated -Respiratory BioFire positive for entero-/rhinovirus. -Chest x-ray showed multifocal infiltrates which is slightly worse from prior chest x-ray. -CTA chest negative for PE. Did show bilateral pericentral groundglass opacities, central lobar nodular infiltrates, and right lower lobe patchy consolidation. Acute infectious changes versus impending acute pulmonary edema -Given 40 mg of Lasix at time of admission -VBG initially showed a pH of 7.32, Repeat VBG at time of admission showed a worsening acidosis of 7.21 with a pCO2 of 95. -Started on BiPAP immediately. After an hour on BiPAP patient had an acidosis of 7.22 with a pCO2 of 90, bicarb of 37. -Started on Zosyn. Echo ordered for the a.m. Patient is immunocompromise due to kidney transplant and 2020 -Remainder of care to be directed by ICU team. -Plan is for bronchoscopy today (3) Rhinovirus infection: Plan: -As above. (4) Lower extremity edema: Plan: -Patient with lower extremity edema and findings on x-ray and CT chest which may be related to acute infection or pulmonary edema. -Given 40 mg of Lasix at time of admission. -No history of heart failure though no echo previously done. -Echo ordered for the a.m. (5) S/P kidney transplant: Plan: -Renal transplant back in 2020. -Continue on tacrolimus, prednisone, and mycophenolate. -Patient is immune compromised due to these medications and further workup of etiology of his respiratory failure with hypercapnia may be warranted. -Continue ICU care. (6) Hyperlipidemia: Plan: -Continue on simvastatin once medically stable. (7) Hypertension: Plan: -Continue with Tylenol once out of the ICU. (8) Secondary hyperparathyroidism: Plan: -Unknown to patient, may need previous records. (9) End stage renal disease: Plan: -Renal transplant back in 2020, follows with [facility]. -Creatinine stable at this time. Plan continue to monitor in the ICU Admission and Anticipated Discharge Date Admission Date: June 30, 2024 Subjective patient seen and examined in the ICU, intuabted, sedated and ventilatesd Review of Systems Review of Systems: unable to obtain Physical Exam Physical Exam: The patient is intubated, sedated and ventilated HEENT--PERRL, EOMI, mucous membranes and oropharynx mildly dry. Heart--normal S1 and S2. No murmurs, rubs or gallops. Lungs--clear bilaterally, no respiratory distress, no accessory muscle use. Abdomen--normal bowel sounds and soft. Extremities--no cyanosis or clubbing. No edema. Dermatologic--normal skin turgor, normal color, no abnormal lymph nodes, no rash. Neurologic--sedated and ventilated Results & Data Results & Data Vital Signs (Past 12 Hours) Vital Signs Temp Pulse Pulse Resp BP BP Pulse Ox 07/01/24 07:57 20 07/01/24 07:50 52 L 24 97 07/01/24 07:48 49 L 24 97 07/01/24 06:33 99.9 F H 60 26 H 120/74 92 07/01/24 06:00 100.0 F H 54 L 26 H 117/73 92 07/01/24 05:30 99.9 F H 56 L 26 H 136/82 92 07/01/24 05:26 71 26 H 95 07/01/24 05:00 99.9 F H 61 26 H 104/86 94 07/01/24 04:30 100.0 F H 60 26 H 131/82 94 07/01/24 04:00 100.2 F H 66 26 H 72/44 L 94 07/01/24 04:00 07/01/24 03:31 99.9 F H 68 26 H 112/86 94 07/01/24 03:01 99.5 F 67 26 H 102/71 96 07/01/24 02:46 68 26 H 112/78 96 07/01/24 02:31 72 26 H 96 07/01/24 02:30 99.1 F 67 26 H 122/83 96 07/01/24 02:26 07/01/24 02:08 98.8 F 65 26 H 98/63 L 96 07/01/24 01:59 07/01/24 01:41 98.4 F 67 26 H 99/60 L 97 07/01/24 01:34 98.1 F 72 26 H 124/75 94 07/01/24 01:34 07/01/24 01:23 98.2 F 68 26 H 124/75 98 07/01/24 00:48 74 26 H 84/50 L 96 07/01/24 00:42 80 26 H 99/61 L 96 07/01/24 00:30 106/62 07/01/24 00:21 84 19 110/62 90 07/01/24 00:18 79 14 104/77 87 L 07/01/24 00:15 75 16 104/77 87 L 07/01/24 00:00 83 18 136/78 94 06/30/24 23:45 70 27 H 90 06/30/24 23:33 60 126/81 98 Pulse Ox O2 Del Method O2 Del Method FiO2 07/01/24 07:57 07/01/24 07:50 100 07/01/24 07:48 Mechanical Vent 100 07/01/24 06:33 Mechanical Vent 50 07/01/24 06:00 Mechanical Vent 50 07/01/24 05:30 Mechanical Vent 50 07/01/24 05:26 50 07/01/24 05:00 Mechanical Vent 50 07/01/24 04:30 Mechanical Vent 50 07/01/24 04:00 Mechanical Vent 50 07/01/24 04:00 50 07/01/24 03:31 Mechanical Vent 50 07/01/24 03:01 Mechanical Vent 50 07/01/24 02:46 Mechanical Vent 50 07/01/24 02:31 50 07/01/24 02:30 Mechanical Vent 50 07/01/24 02:26 Mechanical Vent 50 07/01/24 02:08 Mechanical Vent 50 07/01/24 01:59 50 07/01/24 01:41 Mechanical Vent 50 07/01/24 01:34 Mechanical Vent 50 07/01/24 01:34 96 Mechanical Vent 07/01/24 01:23 Mechanical Vent 50 07/01/24 00:48 Mechanical Vent 100 07/01/24 00:42 Mechanical Vent 100 07/01/24 00:30 07/01/24 00:21 Mechanical Vent 100 07/01/24 00:18 Mechanical Vent 100 07/01/24 00:15 Mechanical Vent 100 07/01/24 00:00 Mechanical Vent 100 06/30/24 23:45 06/30/24 23:33 BiPAP 50 PG Care Time/CCT Total # of Minutes Spent Total Time Spent with Patient: Total time spent is greater than 50% in coordination of care (as documented) at patient's floor/unit and/or counseling patient: Coding Level of Care Code 30281 SUB INP/OBS CARE 2/35MIN Diagnoses Sepsis A41.9 Respiratory failure with hypercapnia J96.92 Rhinovirus infection B34.8 Lower extremity edema R60.0 S/P kidney transplant Z94.0 Hyperlipidemia, unspecified hyperlipidemia type E78.5 Hyperlipidemia type: unspecified Hypertension, unspecified type I10 Hypertension type: unspecified Secondary hyperparathyroidism N25.81 End stage renal disease N18.6 Time Spent (min) 35 (6) Hyperlipidemia Hyperlipidemia type: unspecified Qualified Code(s): E78.5 - Hyperlipidemia, unspecified (7) Hypertension Hypertension type: unspecified Qualified Code(s): I10 - Essential (primary) hypertension
[2024-07-01] MEDS: ASPIRIN 81 MG CHEW PO SCH (11:09)
[2024-07-01] MEDS: LANSOPRAZOLE 30 MG SOLTAB NG SCH (11:09)
[2024-07-01] MEDS: TACROLIMUS 1 MG CAP PO SCH (11:09)
[2024-07-01] MEDS: MYCOPHENOLATE SUSP 200 MG/1 ML PO SCH (11:09)
--- NOTE | 2024-07-01 11:36 | Infectious Disease Consult ---
Date of Consultation July 01, 2024 Assessment & Plan (1) Acute on chronic respiratory failure with hypoxia and hypercapnia: (2) S/P kidney transplant: (3) Rhinovirus infection: (4) Enterovirus infection: Plan 53yo M with h/o PCKD with ESRD s/p DDRT in 12/2020 at [facility] (CMV D+/R-, limited valcyte tx 2/2 neutropenia), on cellcept, tacrolimus, prednisone 5mg qd, h/o BK polyoma viruria, hyperparathyroidism, HTN, HLD, admission 06/04-06/06 with cough and hypoxia f/w rhinovirus/enterovirus PNA (dcd on 2L NC) who presented on 06/30 with SOB with hypoxia, fever, and worsening cough. He was hypoxic on arrival and initially placed on 6L NC, but eventually required intub ation. Hypotensive and placed on pressors. Initial labs with WBC 7.93, Cr 1.34, AST/ALT wnl. D dimer 1020, troponin elevated, LDH elevated to 283. CRP 2.44. PCT 0.09. CXR with multifocal infiltrates, slightly worsened from prior. Chest CTA neg for PE, with bl paracentral GGO, centrilobular nodular infiltration, RLL patchy consolidation, changes might represent acute infectious changes vs impending acute pulmonary edema; variable sized cysts in acquired liver and kidneys with thin linear calcific specks likely representing PCKD. He has been started on zosyn. ID consulted 07/01. S/p bronchoscopy 07/01. Currently off pressors. Rhinovirus shedding has been reported to be prolonged in immunocompromised individuals (sometimes weeks or months). Therefore, its unclear if the positive PCR indicates re-infection or ongoing shedding from prior infection. CT suggests some area of patchy consolidation though PCT is quite low, but given his severe illness, would continue on empiric zosyn for now. BAL studies are sent. Ill also add urine histoplasma and aspergillus Ag, along with CMV given donor positive. # Acute hypoxic/hypercapnic respiratory failure # Positive rhinovirus/enterovirus PCR # h/o renal transplant - Jessika added aspergillus Ag, urine histoplasma, CMV PCR - f/u all cultures and BAL studies - continue empiric zosyn ID will continue to follow. If questions or concerns, contact via [employer] or Infectious Disease Call Center . Cecily Mazariegos MD [facility], Division of Infectious Diseases Consultation Information Consultation was provided via telemedicine using two-way real-time interactive telecommunication between the patient and the telemedicine provider. For the duration of the visit, the provider was performing the assessment from a different facility than the patient. This includesuse of bluetooth stethoscope forauscultationperformed by the telepresenter that the telemedicine provider can hear if described in the physical exam. Weed Control Inspector contact information: Please call [facility] Call Center [phone]. (Phone Number For Physician Use Only) After establishing a telemedicine visit, patient was: Patient was verified with two unique identifiers, Patient/authorized rep acknowledged consent and understanding and Gave permission to continue telehealth session Time Spent with Patient: Initial => 75 min History of Present Illness Reason for Consultation: renal transplant with PNA Attending Physician: Mahsa Hsu, History of Present Illness 53yo M with h/o PCKD with ESRD s/p DDRT in 12/2020 at [facility] (CMV D+/R-, limited valcyte tx 2/2 neutropenia), on cellcept, tacrolimus, prednisone 5mg qd, h/o BK polyoma viruria, hyperparathyroidism, HTN, HLD, admission 06/04-06/06 with cough and hypoxia f/w rhinovirus/enterovirus PNA (dcd on 2L NC) who presented on 06/30 with SOB and fever. He has also had worsening cough. He had to increase his O2 since it was very low. He was hypoxic on arrival and initially placed on 6L NC, but eventually required intubation. Hypotensive and placed on pressors. Initial labs with WBC 7.93, Cr 1.34, AST/ALT wnl. D dimer 1020, troponin elevated, LDH elevated to 283. CRP 2.44. PCT 0.09. CXR with multifocal infiltrates, slightly worsened from prior. Chest CTA neg for PE, with bl paracentral GGO, centrilobular nodular infiltration, RLL patchy consolidation, changes might represent acute infectious changes vs impending acute pulmonary edema; variable sized cysts in acquired liver and kidneys with thin linear calcific specks likely representing PCKD. He has been started on zosyn. ID consulted 07/01. S/p bronchoscopy 07/01. Patient intubated and sedated on evaluation. Per RN, patient has small amount of thick yellow sputum, no diarrhea or open wounds. Allergies Allergy/AdvReac Type Severity Reaction Status Date / Time No Known Drug Allergies Allergy Verified 06/30/24 14:44 Home Medications Medication Instructions Recorded Confirmed Type aspirin 81 mg tablet,delayed 81 mg PO QAM 01/12/21 06/30/24 History release (Adult Aspirin Regimen) cholecalciferol (vitamin D3) 25 25 mcg PO QAM 01/12/21 06/30/24 History mcg (1,000 unit) capsule multivitamin 1 tab PO QAM 01/12/21 06/30/24 History tamsulosin 0.4 mg capsule (Flomax) 0.4 mg PO HS 01/12/21 06/30/24 History vitamin B complex (Vitamins B 1 tab PO QAM 05/13/21 06/30/24 History Complex tablet) mycophenolate mofetil 250 mg 500 mg PO BID 01/13/22 06/30/24 History capsule (CellCept) magnesium oxide 400 mg (241.3 mg 1,200 mg PO BID 08/07/22 06/30/24 History magnesium) tablet sodium di- and 1 tab PO BID 08/07/22 06/30/24 History monophosphate-potassium phos monobasic 250 mg tablet (S-Zlvh-Xpchrxg) tacrolimus 1 mg capsule, 2 mg PO .COMPLEX 11/10/22 06/30/24 History immediate-release (Prograf) prednisone 5 mg tablet 5 mg PO QAM #90 tabs 06/28/23 06/30/24 Rx atenolol 25 mg tablet 25 mg PO HS #90 tabs 10/11/23 06/30/24 Rx simvastatin 20 mg tablet (Zocor) 20 mg PO HS #90 tabs 10/11/23 06/30/24 Rx Mucinex 1 tab PO DIRECTED PRN Other 06/04/24 06/30/24 History fluticasone propionate 110 1 puff inhalation BID #12 grams 06/26/24 06/30/24 Rx mcg/actuation HFA aerosol inhaler Patient History Medical History Elevated hemidiaphragm R Traumatic open wound of right lower leg with delayed healing History of gout History of deep venous thrombosis (DVT) of distal vein of left lower extremity 08/2021 A-V fistula LUE Cellulitis of left leg Dialysis patient hx-no longer on dialysis Surgical History Hx of colonoscopy Hx of kidney transplant 12/25/20, [facility] History of surgery thrombectomy of left lower leg History of wisdom tooth extraction History of tonsillectomy S/P cardiac catheterization 2019 > no stents Family History Mother Diabetes Hypertension Polycystic kidney Other No family history of adverse response to anesthesia Denies family history of Ovarian cancer Prostate cancer Myocardial infarction Breast cancer Colorectal cancer Stroke Social History Smoking Status: Never smoker Second Hand Exposure: No; Do You Dip or Chew Tobacco: No; Tobacco Cessation Education Requested by Patient: No Hx Alcohol Use: No Hx Substance Use: No Preferred Language: Bulgarian Communication Ability: Unable Visual Impairment: Limited Hearing Ability: Normal Electronic Warfare Operator Required: No Beliefs That Will Affect Care: None marital status: Single Current Living Situation: Alone Current Living Situation Comment: 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, 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 How many Children do You have: 0 Other Information That Helps Us Care for You: No Feels Safe at Home: Yes Safety Concerns: Afraid for Self Childhood Exposure to Second-Hand Smoke: No Diet: regular caffeine: Yes (sometimes) during the past year weight has: remained stable Dental Care, Regularly: Yes Physical Activity Frequency: Daily Physical Activity Frequency Comment: active daily Seatbelt Use: always Sunscreen Use: Yes Do you think of yourself as: straight/heterosexual Gender Identity: Male Assistive Devices: Glasses and Oxygen - Continuous Review of System Unable to perform as patient is sedated and intubated. Physical Exam Physical Exam: General: intubated, sedated HEENT: NC/AT Lungs: coarse breath sounds Heart: regular Abdomen: soft, nondistended Ext: no LE edema Skin: no rash Results & Data Vital Signs (Past 12 Hours) Vital Signs Temp Pulse Pulse Resp BP BP Pulse Ox 07/01/24 10:30 125/67 07/01/24 10:27 37.0 C 51 L 20 92 07/01/24 10:15 37.0 C 55 L 20 93 07/01/24 10:15 126/66 07/01/24 10:15 126/66 07/01/24 10:14 54 L 20 93 07/01/24 10:06 37.1 C 51 L 20 93 07/01/24 10:00 123/61 07/01/24 09:48 37.1 C 55 L 20 91 07/01/24 09:45 117/57 L 07/01/24 09:45 117/57 L 07/01/24 09:42 37.1 C 56 L 20 91 07/01/24 09:30 121/58 L 07/01/24 09:30 37.3 C 56 L 19 91 07/01/24 09:27 126/62 07/01/24 09:20 118/63 07/01/24 09:17 131/72 07/01/24 09:15 37.3 C 57 L 20 97 07/01/24 09:00 129/69 07/01/24 09:00 129/69 07/01/24 09:00 07/01/24 08:57 37.3 C 60 20 96 07/01/24 08:30 131/72 07/01/24 08:27 37.4 C 66 20 96 07/01/24 08:06 37.4 C 65 20 96 07/01/24 08:00 123/69 07/01/24 08:00 07/01/24 08:00 07/01/24 07:57 20 07/01/24 07:50 52 L 24 97 07/01/24 07:48 49 L 24 97 07/01/24 07:42 37.5 C 51 L 24 97 07/01/24 07:30 124/80 07/01/24 07:27 37.5 C 56 L 24 93 07/01/24 07:03 37.6 C H 56 L 24 93 07/01/24 07:00 121/76 07/01/24 06:33 37.7 C H 60 26 H 120/74 92 07/01/24 06:00 37.8 C H 54 L 26 H 117/73 92 07/01/24 05:30 37.7 C H 56 L 26 H 136/82 92 07/01/24 05:26 71 26 H 95 07/01/24 05:00 37.7 C H 61 26 H 104/86 94 07/01/24 04:30 37.8 C H 60 26 H 131/82 94 07/01/24 04:00 37.9 C H 66 26 H 72/44 L 94 07/01/24 04:00 07/01/24 03:31 37.7 C H 68 26 H 112/86 94 07/01/24 03:01 37.5 C 67 26 H 102/71 96 07/01/24 02:46 68 26 H 112/78 96 07/01/24 02:31 72 26 H 96 07/01/24 02:30 37.3 C 67 26 H 122/83 96 07/01/24 02:26 07/01/24 02:08 37.1 C 65 26 H 98/63 L 96 07/01/24 01:59 07/01/24 01:41 36.9 C 67 26 H 99/60 L 97 07/01/24 01:34 36.7 C 72 26 H 124/75 94 07/01/24 01:34 07/01/24 01:23 36.8 C 68 26 H 124/75 98 07/01/24 00:48 74 26 H 84/50 L 96 07/01/24 00:42 80 26 H 99/61 L 96 07/01/24 00:30 106/62 07/01/24 00:21 84 19 110/62 90 07/01/24 00:18 79 14 104/77 87 L 07/01/24 00:15 75 16 104/77 87 L 07/01/24 00:00 83 18 136/78 94 06/30/24 23:45 70 27 H 90 06/30/24 23:33 60 126/81 98 Pulse Ox O2 Del Method O2 Del Method FiO2 07/01/24 10:30 07/01/24 10:27 07/01/24 10:15 07/01/24 10:15 07/01/24 10:15 07/01/24 10:14 90 07/01/24 10:06 07/01/24 10:00 07/01/24 09:48 07/01/24 09:45 07/01/24 09:45 07/01/24 09:42 07/01/24 09:30 07/01/24 09:30 07/01/24 09:27 07/01/24 09:20 07/01/24 09:17 07/01/24 09:15 07/01/24 09:00 07/01/24 09:00 07/01/24 09:00 Mechanical Vent 07/01/24 08:57 07/01/24 08:30 07/01/24 08:27 07/01/24 08:06 07/01/24 08:00 07/01/24 08:00 Mechanical Vent 50 07/01/24 08:00 50 07/01/24 07:57 07/01/24 07:50 100 07/01/24 07:48 Mechanical Vent 100 07/01/24 07:42 07/01/24 07:30 07/01/24 07:27 07/01/24 07:03 07/01/24 07:00 07/01/24 06:33 Mechanical Vent 50 07/01/24 06:00 Mechanical Vent 50 07/01/24 05:30 Mechanical Vent 50 07/01/24 05:26 50 07/01/24 05:00 Mechanical Vent 50 07/01/24 04:30 Mechanical Vent 50 07/01/24 04:00 Mechanical Vent 50 07/01/24 04:00 50 07/01/24 03:31 Mechanical Vent 50 07/01/24 03:01 Mechanical Vent 50 07/01/24 02:46 Mechanical Vent 50 07/01/24 02:31 50 07/01/24 02:30 Mechanical Vent 50 07/01/24 02:26 Mechanical Vent 50 07/01/24 02:08 Mechanical Vent 50 07/01/24 01:59 50 07/01/24 01:41 Mechanical Vent 50 07/01/24 01:34 Mechanical Vent 50 07/01/24 01:34 96 Mechanical Vent 07/01/24 01:23 Mechanical Vent 50 07/01/24 00:48 Mechanical Vent 100 07/01/24 00:42 Mechanical Vent 100 07/01/24 00:30 07/01/24 00:21 Mechanical Vent 100 07/01/24 00:18 Mechanical Vent 100 07/01/24 00:15 Mechanical Vent 100 07/01/24 00:00 Mechanical Vent 100 06/30/24 23:45 06/30/24 23:33 BiPAP 50 Laboratory Results Labs reviewed. Diagnostic Findings Imaging reviewed.
[2024-07-01 12:35] LABS: Fluid Mono/Macrophage 18 %; Lymphocyte Body Fluid Man 21 %; Neutrophil Body Fluid Man 80 %
--- NOTE | 2024-07-01 16:16 | Nephrology Consultation ---
Date of Consultation July 01, 2024 Assessment & Plan (1) Acute on chronic respiratory failure with hypoxia and hypercapnia: (2) S/P kidney transplant: (3) Rhinovirus infection: (4) Enterovirus infection: Plan 53 y o M with end-stage kidney disease secondary to polycystic kidney disease status post kidney transplant in 2020 admitted with hypoxic respiratory failure requiring intubation in ER. Enterovirus and rhinovirus was positive and empirically started on Zosyn. Had bronchoscopy this morning considering 2 episodes of hypoxic respiratory failure over last 1 month and risk for opportunistic infection considering immunosuppressed state. Baseline creatinine has been around 1.3-1.4. On admission creatinine was 1.3 which increased to 1.6 this morning. Overnight has been hypotensive since he was intubated requiring pressor for brief period. -- Continue on tacrolimus and CellCept at current dose via NG tube while NPO, discussed with pharmacy. Tacrolimus trough level was drawn this morning. -- monitor kidney function and electrolyte, risk for further worsening of kidney function with significant hypotension since yesterday. -- Pressor support as needed -- Left arm nephrology precaution for AV fistula in place Thank you for allowing me to participate in your patient's care. It was a pleasure to see Mr. Pyle. History of Present Illness Reason for Consultation: Stage 3A CKD, Kidney transplant Attending Physician: Mahsa Hsu DO History of Present Illness Mr. 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 Nephrology consult was requested for management of immunosuppressive medication while in hospital. EMR records were reviewed in detail during visit. Brian presented to ER yesterday with SOB with hypoxia, fever, and worsening cough over last few days. He was recently admitted to the hospital from 06/04/2024 to 06/06/2024 with shortness of breath and hypoxia and during that admission he was positive for rhinovirus and enterovirus and was created with supportive care. He was discharged from the hospital on 2 L oxygen. On arrival to the hospital his oxygen saturation was 88%. Blood pressure was initially normal to high but since then blood pressure has been relatively low. He was hypoxic on arrival and initially placed on 6L NC, but he remained hypoxic and hypercapnic and started on BiPAP and eventually required to be intubated in ER and transferred to ICU. CTA chest was negative for PE but had bilateral ground glass opacifications concerning for infection versus pulmonary edema. On admission his creatinine was 1.3 which is close to his baseline of 1.3-1.4 mg/dl since transplant. Lab this morning showed creatinine 1.6 mg/dl. He was empirically started on Zosyn. He had bronchoscopy this morning. 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 Has h/o BK polyoma viruria, hyperparathyroidism, HTN, HLD. Last tacrolimus level was 6.7 on 06/26/2024. He was intubated and sedated during visit this morning. Allergies Allergy/AdvReac Type Severity Reaction Status Date / Time No Known Drug Allergies Allergy Verified 06/30/24 14:44 Home Medications Medication Instructions Recorded Confirmed Type aspirin 81 mg tablet,delayed 81 mg PO QAM 01/12/21 06/30/24 History release (Adult Aspirin Regimen) cholecalciferol (vitamin D3) 25 25 mcg PO QAM 01/12/21 06/30/24 History mcg (1,000 unit) capsule multivitamin 1 tab PO QAM 01/12/21 06/30/24 History tamsulosin 0.4 mg capsule (Flomax) 0.4 mg PO HS 01/12/21 06/30/24 History vitamin B complex (Vitamins B 1 tab PO QAM 05/13/21 06/30/24 History Complex tablet) mycophenolate mofetil 250 mg 500 mg PO BID 01/13/22 06/30/24 History capsule (CellCept) magnesium oxide 400 mg (241.3 mg 1,200 mg PO BID 08/07/22 06/30/24 History magnesium) tablet sodium di- and 1 tab PO BID 08/07/22 06/30/24 History monophosphate-potassium phos monobasic 250 mg tablet (S-Vkju-Cxwxoay) tacrolimus 1 mg capsule, 2 mg PO .COMPLEX 11/10/22 06/30/24 History immediate-release (Prograf) prednisone 5 mg tablet 5 mg PO QAM #90 tabs 06/28/23 06/30/24 Rx atenolol 25 mg tablet 25 mg PO HS #90 tabs 10/11/23 06/30/24 Rx simvastatin 20 mg tablet (Zocor) 20 mg PO HS #90 tabs 10/11/23 06/30/24 Rx Mucinex 1 tab PO DIRECTED PRN Other 06/04/24 06/30/24 History fluticasone propionate 110 1 puff inhalation BID #12 grams 06/26/24 06/30/24 Rx mcg/actuation HFA aerosol inhaler Patient History Medical History Elevated hemidiaphragm R Traumatic open wound of right lower leg with delayed healing History of gout History of deep venous thrombosis (DVT) of distal vein of left lower extremity 08/2021 A-V fistula LUE Cellulitis of left leg Dialysis patient hx-no longer on dialysis Surgical History Hx of colonoscopy Hx of kidney transplant 12/25/20, [facility] History of surgery thrombectomy of left lower leg History of wisdom tooth extraction History of tonsillectomy S/P cardiac catheterization 2019 > no stents Family History Mother Diabetes Hypertension Polycystic kidney Other No family history of adverse response to anesthesia Denies family history of Ovarian cancer Prostate cancer Myocardial infarction Breast cancer Colorectal cancer Stroke Social History Smoking Status: Never smoker Second Hand Exposure: No; Do You Dip or Chew Tobacco: No; Tobacco Cessation Education Requested by Patient: No Hx Alcohol Use: No Hx Substance Use: No Preferred Language: Malaysian Communication Ability: Impaired Visual Impairment: Limited Hearing Ability: Normal Photo Printer Required: No Beliefs That Will Affect Care: None marital status: Single Current Living Situation: Alone Current Living Situation Comment: 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, 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 Physical Exam Constitutional: WD/WN, vitals as above + ill appearing and + mechanically ventilated Eyes: + anicteric sclerae Respiratory: Auscultation: + diminished lung sounds Cardiovascular: Rate/Rhythm: regular rate and regular rhythm Heart Sounds: normal S1 and normal S2 Extremities: no edema Gastrointestinal (Abdomen): Inspection/Auscultation: abdomen normal to inspection Percussion/Palpation: abdomen soft Musculoskeletal: Extremities: extremities normal to inspection Skin: no rashes Neurologic: sedated, could not be assessed. Results & Data Vital Signs (Past 12 Hours) Vital Signs Temp Pulse Pulse Resp BP Pulse Ox O2 Del Method 07/01/24 15:23 62 20 92 07/01/24 14:00 36.8 C 65 20 89 L 07/01/24 14:00 104/52 L 07/01/24 13:35 58 L 21 90 Mechanical Vent 07/01/24 13:21 36.7 C 60 20 90 07/01/24 13:00 98/48 L 07/01/24 13:00 98/48 L 07/01/24 13:00 36.8 C 70 20 89 L 07/01/24 12:30 100/46 L 07/01/24 12:24 36.9 C 68 20 88 L 07/01/24 12:03 36.9 C 55 L 20 88 L 07/01/24 12:00 106/54 L 07/01/24 12:00 07/01/24 11:54 36.9 C 52 L 20 90 07/01/24 11:41 108/56 L 07/01/24 11:30 136/67 07/01/24 11:27 36.9 C 49 L 20 93 07/01/24 11:06 36.9 C 50 L 20 92 07/01/24 11:00 132/69 07/01/24 10:57 37.0 C 50 L 20 92 07/01/24 10:45 132/68 07/01/24 10:30 125/67 07/01/24 10:27 37.0 C 51 L 20 92 07/01/24 10:15 37.0 C 55 L 20 93 07/01/24 10:15 126/66 07/01/24 10:15 126/66 07/01/24 10:14 54 L 20 93 07/01/24 10:06 37.1 C 51 L 20 93 07/01/24 10:00 123/61 07/01/24 09:48 37.1 C 55 L 20 91 07/01/24 09:45 117/57 L 07/01/24 09:45 117/57 L 07/01/24 09:42 37.1 C 56 L 20 91 07/01/24 09:30 121/58 L 07/01/24 09:30 37.3 C 56 L 19 91 07/01/24 09:27 126/62 07/01/24 09:20 118/63 07/01/24 09:17 131/72 07/01/24 09:15 37.3 C 57 L 20 97 07/01/24 09:00 129/69 07/01/24 09:00 129/69 07/01/24 09:00 Mechanical Vent 07/01/24 08:57 37.3 C 60 20 96 07/01/24 08:30 131/72 07/01/24 08:27 37.4 C 66 20 96 07/01/24 08:06 37.4 C 65 20 96 07/01/24 08:00 123/69 07/01/24 08:00 Mechanical Vent 07/01/24 08:00 07/01/24 07:57 20 07/01/24 07:50 52 L 24 97 07/01/24 07:48 49 L 24 97 Mechanical Vent 07/01/24 07:42 37.5 C 51 L 24 97 07/01/24 07:30 124/80 07/01/24 07:27 37.5 C 56 L 24 93 07/01/24 07:03 37.6 C H 56 L 24 93 07/01/24 07:00 121/76 07/01/24 06:33 37.7 C H 60 26 H 120/74 92 Mechanical Vent 07/01/24 06:00 37.8 C H 54 L 26 H 117/73 92 Mechanical Vent 07/01/24 05:30 37.7 C H 56 L 26 H 136/82 92 Mechanical Vent 07/01/24 05:26 71 26 H 95 07/01/24 05:00 37.7 C H 61 26 H 104/86 94 Mechanical Vent 07/01/24 04:30 37.8 C H 60 26 H 131/82 94 Mechanical Vent FiO2 07/01/24 15:23 90 07/01/24 14:00 07/01/24 14:00 07/01/24 13:35 07/01/24 13:21 07/01/24 13:00 07/01/24 13:00 07/01/24 13:00 07/01/24 12:30 07/01/24 12:24 07/01/24 12:03 07/01/24 12:00 07/01/24 12:00 90 07/01/24 11:54 07/01/24 11:41 07/01/24 11:30 07/01/24 11:27 07/01/24 11:06 07/01/24 11:00 07/01/24 10:57 07/01/24 10:45 07/01/24 10:30 07/01/24 10:27 07/01/24 10:15 07/01/24 10:15 07/01/24 10:15 07/01/24 10:14 90 07/01/24 10:06 07/01/24 10:00 07/01/24 09:48 07/01/24 09:45 07/01/24 09:45 07/01/24 09:42 07/01/24 09:30 07/01/24 09:30 07/01/24 09:27 07/01/24 09:20 07/01/24 09:17 07/01/24 09:15 07/01/24 09:00 07/01/24 09:00 07/01/24 09:00 07/01/24 08:57 07/01/24 08:30 07/01/24 08:27 07/01/24 08:06 07/01/24 08:00 07/01/24 08:00 50 07/01/24 08:00 50 07/01/24 07:57 07/01/24 07:50 100 07/01/24 07:48 100 07/01/24 07:42 07/01/24 07:30 07/01/24 07:27 07/01/24 07:03 07/01/24 07:00 07/01/24 06:33 50 07/01/24 06:00 50 07/01/24 05:30 50 07/01/24 05:26 50 07/01/24 05:00 50 07/01/24 04:30 50 PG Care Time/CCT Total # of Minutes Spent Total Time Spent with Patient: Total time spent is greater than 50% in coordination of care (as documented) at patient's floor/unit and/or counseling patient: Coding Level of Care Code 80720 INT INP/OBS CARE 3/75MIN Diagnoses Acute on chronic respiratory failure with hypoxia and hypercapnia J96.21; J96.22 S/P kidney transplant Z94.0 Rhinovirus infection B34.8 Enterovirus infection B34.1
--- NOTE | 2024-07-01 18:06 | XCELERA ---
[id number] \\[id number]
[2024-07-01] MEDS: SIMVASTATIN 20 MG TAB PO SCH (19:46)
[2024-07-01] MEDS: TACROLIMUS 0.5 MG CAP PO SCH (19:46)
[2024-07-01] MEDS: TAMSULOSIN HCL 0.4 MG CAP PO SCH (19:47)
[2024-07-01] MEDS ORDERED: ATENOLOL 25 MG TABLET PO SCH (21:00)
[2024-07-02 03:48] LABS: iSTAT Art Bld Gas pCO2 Correct 60 mmHg (35-46); iSTAT Art Bld Gas pH Corrected 7.327 (7.35-7.45); iSTAT Arterial Blood Gas HCO3 32 meg/L (19-24); iSTAT Arterial Blood Gas pCO2 63 mmHg (35-46); iSTAT Arterial Blood Gas pH 7.31 (7.35-7.45); iSTAT Arterial Blood Gas pO2 83 mmHg (80-95); iSTAT Arterial Blood Gas pO2 C 77; iSTAT Carbon Dioxide 34 mmol/L (24-31); iSTAT FiO2 90 %; iSTAT Hematocrit 51 % (42-52); iSTAT Hemoglobin 17.3 g/dl (14.0-18.0); iSTAT Potassium 4.6 mmol/L (3.3-5.0); iSTAT Sample Type Arterial; iSTAT Site L Brachial; iSTAT Sodium 136 mmol/L (135-144); iSTAT SpO2 93
[2024-07-02 04:43] LABS: Hematocrit (blood only) 52.6 % (42.0-52.0); Hemoglobin 15.7 g/dl (14.0-18.0); Mean Corpuscular Hemoglobin 25.2 pg (25.0-34.0); Mean Corpuscular Hgb Conc 29.8 g/dL (32.0-36.0); Mean Corpuscular Volume 84.4 fL (80.0-100.0); Mean Platelet Volume 11.1 fL (9.4-12.4); Platelet Count 164 K/uL (130-400); RDW Coefficient of Variation 17.6 % (11.5-14.5); RDW Standard Deviation 49.9 fL (36.4-46.3); Red Blood Count 6.23 M/uL (4.70-6.10); White Blood Count 7.66 K/ul (4.8-10.8)
[2024-07-02 05:03] LABS: Albumin Level 3.6 gm/dl (3.4-5.0); BUN Creatinine Ratio 19.1 (10-20); Bilirubin Direct 0.3 mg/dl (0-0.2); Bilirubin,Total 0.8 mg/dl (0.2-1.0); Calcium 8.9 mg/dl (8.6-10.3); Creatinine Clr Calc Pharmacy 46.9 ml/min; Potassium 4.8 mmol/L (3.5-5.1); Total Protein 5.5 gm/dl (6.0-8.3)
--- NOTE | 2024-07-02 10:17 | Hospitalist Progress Note ---
Date of Service July 02, 2024 Assessment & Plan (1) Sepsis: Plan: suspected sepsis likely due to multifocal pneumonia with acute on chronic hypercapnic and hypoxic respiratory failure. Present on admission Blood cultures pending continue empiric antibiotics (2) Respiratory failure with hypercapnia: Plan: -Worsened oxygenation status at time of admission. -Currently intubated and ventilated -Respiratory BioFire positive for entero-/rhinovirus. -Chest x-ray showed multifocal infiltrates which is slightly worse from prior chest x-ray. -CTA chest negative for PE. Did show bilateral pericentral groundglass opacities, central lobar nodular infiltrates, and right lower lobe patchy consolidation. Acute infectious changes versus impending acute pulmonary edema -Started on Zosyn. -Echo showed EF 50-55%, no wall motion abnormality. -Patient is immunocompromise due to kidney transplant and 2020 -He underwent bronchoscopy 07/01, results pending (3) End stage renal disease: Plan: -Renal transplant back in 2020, follows with [facility]. -Creatinine worsening -Nephrology on board (4) Lower extremity edema: Plan: -Patient with lower extremity edema and findings on x-ray and CT chest which may be related to acute infection or pulmonary edema. -Given 40 mg of Lasix at time of admission. -No history of heart failure though no echo previously done. -Echo showed EF50-55% (5) S/P kidney transplant: Plan: -Renal transplant back in 2020. -Continue on tacrolimus, prednisone, and mycophenolate. -Patient is immune compromised due to these medications and further workup of etiology of his respiratory failure with hypercapnia may be warranted. -Continue ICU care. (6) Hyperlipidemia: Plan: -Continue on simvastatin once medically stable. (7) Hypertension: Plan: -BP stable (8) Rhinovirus infection: Plan: -As above. (9) Secondary hyperparathyroidism: Plan: -Unknown to patient, may need previous records. Plan continue to monitor in the ICU Admission and Anticipated Discharge Date Admission Date: July 01, 2024 Subjective patient seen and examined in the ICU, intuabted, sedated and ventilatesd, although, opens eyes occasionally Review of Systems Review of Systems: unable to obtain Physical Exam Physical Exam: The patient is intubated, sedated and ventilated HEENT--PERRL, EOMI, mucous membranes and oropharynx mildly dry. Heart--normal S1 and S2. No murmurs, rubs or gallops. Lungs--clear bilaterally, no respiratory distress, no accessory muscle use. Abdomen--normal bowel sounds and soft. Extremities--no cyanosis or clubbing. No edema. Dermatologic--normal skin turgor, normal color, no abnormal lymph nodes, no rash. Neurologic--sedated and ventilated Results & Data Results & Data Vital Signs (Past 12 Hours) Vital Signs Temp Pulse Resp BP Pulse Ox O2 Del Method FiO2 07/02/24 08:11 Mechanical Vent 80 07/02/24 08:00 133/67 07/02/24 08:00 80 07/02/24 08:00 74 07/02/24 07:45 97.7 F 95 H 22 90 Mechanical Vent 80 07/02/24 07:42 97.7 F 93 H 22 90 Mechanical Vent 80 07/02/24 07:30 114/57 L 07/02/24 07:24 97.5 F L 77 22 91 Mechanical Vent 80 07/02/24 07:24 79 22 91 80 07/02/24 07:00 97.5 F L 76 22 91 Mechanical Vent 80 07/02/24 07:00 114/62 07/02/24 06:30 107/63 07/02/24 06:30 97.3 F L 83 22 107/63 90 Mechanical Vent 80 07/02/24 06:00 97.3 F L 85 22 110/62 90 Mechanical Vent 80 07/02/24 05:06 97.5 F L 84 22 100/62 90 Mechanical Vent 80 07/02/24 04:30 97.3 F L 89 22 126/76 91 Mechanical Vent 80 07/02/24 04:00 97.2 F L 84 22 139/65 91 Mechanical Vent 80 07/02/24 04:00 80 07/02/24 03:31 79 22 92 80 07/02/24 03:15 96.8 F L 79 22 130/65 93 Mechanical Vent 80 07/02/24 02:27 96.6 F L 72 20 125/59 L 92 Mechanical Vent 90 07/02/24 02:00 46 L 20 92 90 07/02/24 02:00 96.8 F L 59 L 20 119/56 L 92 Mechanical Vent 90 07/02/24 01:30 50 L 20 121/64 92 Mechanical Vent 90 07/02/24 01:00 97.3 F L 49 L 20 124/64 92 Mechanical Vent 90 07/02/24 00:30 97.3 F L 49 L 20 126/64 92 Mechanical Vent 90 07/02/24 00:00 97.3 F L 50 L 20 122/64 91 Mechanical Vent 90 07/02/24 00:00 90 07/01/24 23:30 97.3 F L 51 L 20 116/63 91 Mechanical Vent 90 07/01/24 23:30 97.3 F L 52 L 20 116/63 91 Mechanical Vent 90 07/01/24 23:00 97.7 F 52 L 20 119/64 91 Mechanical Vent 90 07/01/24 22:39 48 L 20 91 90 07/01/24 22:30 97.7 F 53 L 20 112/63 91 Mechanical Vent 90 PG Care Time/CCT Total # of Minutes Spent Total Time Spent with Patient: Total time spent is greater than 50% in coordination of care (as documented) at patient's floor/unit and/or counseling patient: Coding Level of Care Code 90864 SUB INP/OBS CARE 2/35MIN Diagnoses Sepsis A41.9 Respiratory failure with hypercapnia J96.92 End stage renal disease N18.6 Lower extremity edema R60.0 S/P kidney transplant Z94.0 Hyperlipidemia, unspecified hyperlipidemia type E78.5 Hyperlipidemia type: unspecified Hypertension, unspecified type I10 Hypertension type: unspecified Rhinovirus infection B34.8 Secondary hyperparathyroidism N25.81 Time Spent (min) 35 (6) Hyperlipidemia Hyperlipidemia type: unspecified Qualified Code(s): E78.5 - Hyperlipidemia, unspecified (7) Hypertension Hypertension type: unspecified Qualified Code(s): I10 - Essential (primary) hypertension
--- NOTE | 2024-07-02 10:21 | XRay Report ---
XR chest 1V portable CLINICAL HISTORY: Respiratory failure. COMPARISON STUDY: Chest CT June 30, 2024. Chest radiograph July 01, 2024. FINDINGS: Tip of endotracheal tube is 6.1 cm above the lotus. Tip of nasogastric tube is difficult t o visualize but at least within the stomach. Cardiomediastinal silhouette is normal. There is no pneu mothorax or pleural effusion. Multifocal airspace opacities have slightly progressed. IMPRESSION: 1. Satisfactory positioning of the endotracheal and nasogastric tubes. 2. Multifocal airspace opacities suggestive of pneumonia. Slight progression since prior exam. ACT 112: Negative or not required by law. Electronically signed by: David Montez M.D. 07/02/2024 10:19 AM
[2024-07-02 10:59] LABS: Appearance Urine Clear (Clear); Bilirubin Urine Negative (Negative); Blood Urine Negative (Negative); Color Urine Yellow; Glucose Urine UA Negative (Negative); Ketones Urine Negative (Negative); Leukocyte Esterase Urine Negative (Negative); Nitrite Urine Negative (Negative); Protein Urine Negative (Negative); Specific Gravity Urine 1.026 (1.000-1.030); Urobilinogen Urine Negative (Negative)
[2024-07-02] MEDS: HEPARIN SOD 5,000 UNIT/0.5 ML VIAL SQ SCH (11:39)
[2024-07-02] MEDS: TUBE FEEDING WATER FLUSH OG SCH (11:40)
--- NOTE | 2024-07-02 12:43 | Nephrology Progress Note ---
Date of Service July 02, 2024 Assessment & Plan (1) Acute on chronic respiratory failure with hypoxia and hypercapnia: (2) S/P kidney transplant: (3) Rhinovirus infection: (4) Enterovirus infection: Plan 53 y o M with end-stage kidney disease secondary to polycystic kidney disease status post donor kidney transplant in [place] in 2020 admitted with hypoxic respiratory failure requiring intubation in ER. Enterovirus and rhinovirus was positive and empirically started on Zosyn. Had bronchoscopy this morning considering 2 episodes of hypoxic respiratory failure over last 1 month and risk for opportunistic infection considering immunosuppressed state. Baselin e creatinine has been around 1.3-1.4 mg/dl. On admission creatinine was 1.3 mg/dl which increased to 1.6 this morning. Overnight has been hypotensive since he was intubated requiring pressor for brief period, but now off of pressor. IFRAH with progressive worsening of kidney function most likely prerenal vs ATN with hypotension and sepsis. -- Continue on tacrolimus and CellCept at current dose via NG tube while NPO, discussed with pharmacy. Tacrolimus trough level pending. -- monitor kidney function and electrolyte, as BP improved and clinically stable, may see kidney function stabilizing but may take time. -- Left arm nephrology precaution for AV fistula in place -- discussed with his sister over telephone and updated regarding clinical course. Sister requested [facility] transplant to get directly involved, will defer to primary team. Admission and Anticipated Discharge Date Admission Date: July 01, 2024 Wil Torres was seen and evaluated this morning. He is still intubated but awake, alert, responding. Kidney function worsened, cr upto 2.5 mg/dl. Decent UO. Off pressor, BP fair. Review of Systems Review of Systems: Detail ROS could not be done. Physical Exam Constitutional: WD/WN, vitals as above + ill appearing and + mechanically ventilated awake alert Eyes: + anicteric sclerae Respiratory: Auscultation: + diminished lung sounds Cardiovascular: Rate/Rhythm: regular rate and regular rhythm Heart Sounds: normal S1 and normal S2 Extremities: + AV fistula (left RC AVF with thrill and bruit.); no edema Gastrointestinal (Abdomen): Inspection/Auscultation: abdomen normal to inspect ion Percussion/Palpation: abdomen soft [place]t [place] allograft area non tender, scar well healed. Musculoskeletal: Extremities: extremities normal to inspection Skin: no rashes Neurologic: awake, alert, responding by nodding, moves extremities. Psychiatric: Detail exam was not possible but awake, alert Results & Data Vital Signs (Past 12 Hours) Vital Signs Temp Pulse Resp BP Pulse Ox O2 Del Method FiO2 07/02/24 11:48 83 22 91 80 07/02/24 11:30 127/68 07/02/24 11:24 36.9 C 82 22 90 Mechanical Vent 80 07/02/24 11:03 80 07/02/24 11:00 133/66 07/02/24 10:54 36.8 C 80 22 91 Mechanical Vent 80 07/02/24 10:39 36.8 C 82 22 91 Mechanical Vent 80 07/02/24 10:03 36.7 C 84 22 92 Mechanical Vent 80 07/02/24 10:00 131/72 07/02/24 09:57 36.7 C 85 22 91 Mechanical Vent 80 07/02/24 09:30 36.7 C 86 22 91 Mechanical Vent 80 07/02/24 09:30 120/66 07/02/24 09:03 36.6 C 79 22 91 Mechanical Vent 80 07/02/24 09:00 128/68 07/02/24 08:51 36.6 C 87 22 90 Mechanical Vent 80 07/02/24 08:30 119/68 07/02/24 08:30 36.5 C 84 22 90 Mechanical Vent 80 07/02/24 08:11 Mechanical Vent 80 07/02/24 08:00 133/67 07/02/24 08:00 80 07/02/24 08:00 74 07/02/24 07:45 36.5 C 95 H 22 90 Mechanical Vent 80 07/02/24 07:42 36.5 C 93 H 22 90 Mechanical Vent 80 07/02/24 07:30 114/57 L 07/02/24 07:24 36.4 C L 77 22 91 Mechanical Vent 80 07/02/24 07:24 79 22 91 80 07/02/24 07:00 36.4 C L 76 22 91 Mechanical Vent 80 07/02/24 07:00 114/62 07/02/24 06:30 107/63 07/02/24 06:30 36.3 C L 83 22 107/63 90 Mechanical Vent 80 07/02/24 06:00 36.3 C L 85 22 110/62 90 Mechanical Vent 80 07/02/24 05:06 36.4 C L 84 22 100/62 90 Mechanical Vent 80 07/02/24 04:30 36.3 C L 89 22 126/76 91 Mechanical Vent 80 07/02/24 04:00 36.2 C L 84 22 139/65 91 Mechanical Vent 80 07/02/24 04:00 80 07/02/24 03:31 79 22 92 80 07/02/24 03:15 36.0 C L 79 22 130/65 93 Mechanical Vent 80 07/02/24 02:27 35.9 C L 72 20 125/59 L 92 Mechanical Vent 90 07/02/24 02:00 46 L 20 92 90 07/02/24 02:00 36.0 C L 59 L 20 119/56 L 92 Mechanical Vent 90 07/02/24 01:30 50 L 20 121/64 92 Mechanical Vent 90 07/02/24 01:00 36.3 C L 49 L 20 124/64 92 Mechanical Vent 90 PG Care Time/CCT Total # of Minutes Spent Total Time Spent with Patient: Total time spent is greater than 50% in coordination of care (as documented) at patient's floor/unit and/or counseling patient: Coding Level of Care Code 86927 SUB INP/OBS CARE 3/50MIN Diagnoses Acute on chronic respiratory failure with hypoxia and hypercapnia J96.21; J96.22 S/P kidney transplant Z94.0 Rhinovirus infection B34.8 Enterovirus infection B34.1
--- NOTE | 2024-07-02 15:47 | Critical Care Progress Note ---
Date of Service July 02, 2024 Assessment & Plan (1) Acute on chronic respiratory failure with hypoxia and hypercapnia: Plan: Reason Critically Ill: 53-year-old immunosuppressed male with past medical history of kidney transplant, HTN, HLD and recent diagnosis of rhinovirus with home oxygen, presents to the ICU with acute respiratory failure with hypercapnia hypoxia 24-hour events: Patient mated to the ICU. Underwent bronchoscopy with BAL. Infectious disease and nephrology consultations were obtained. Has been hemodynamically stable but has required a fairly high amount of oxygen. Recommendations: Neuro - Sedation: Propofol, fentanyl drips Cardiac - Echocardiogram showed EF of 50 to 55% without regional wall motion abnormalities. Image quality was poor. Right ventricle showed normal systolic function. Aortic sclerosis without stenosis. No significant valvular dysfunction. Patient did require vasopressor agents associated with sedation but these are being weaned off. Respiratory - Acute hypoxic and hypercapnic respiratory failurepatient had some patchy parenchymal densities concerning for infection. His PCR was positive for rhinovirus. Send broad-spectrum antibiotics dictated by infectious disease. Cultures are pending. Chest x-ray today with improved aeration but parenchymal opacity at the left lung base with some streaky opacities within the right midlung zone. Current vent settings AC 22/440/14/0.8 with labs blood gas showing 7.31/66/83. Peak pressures around 29. PF ratio 103. Patient does have an elevated bicarb at baseline suggestive of potential underlying chronic hypercarbic respiratory failure. No outpatient PFTs or polysomnography available to review. May require noninvasive positive pressure ventilation when extubated. Currently on empiric Solu-Medrol 40 mg twice a day. Could consider escalation of steroids if cultures remain negative. If oxygenation fails to improve, may need to reach out to [facility] to discuss potential ECMO. GI - Initiate enteral feeding. RENAL/LYTES - Status post renal transplant. Immune suppressant medications per nephrology. Slight increase in serum creatinine today potentially related to pressor agents. Continue to follow. Family is requested [facility] be contacted. Given his complexities, if they would like him transferred to [facility] I think that would be reasonable. - Foleystrict I's and O's ENDO - Glycemic control per protocol. HEME - H&H stable, monitor routine CBC ID - Acute respiratory failure with ARDS physiology. Patient is currently day #3 empiric Zosyn. BAL fluid differential showed 80% neutrophils, 21% lymphocytes, and 18% monocytes. Cultures and serologies no growth to date. Continue empiric antibiotics directed by infectious disease. LINES/IV ACCESS - Peripheral IVs DVT PROPHYLAXIS - Subcu heparin Patient is critically ill at this point time with significant possibility of clinical deterioration and/or decline. A total of 50 minutes in critical care time was spent in evaluation management and coordination of care for this complex medical patient. (2) Rhinovirus infection: (3) S/P kidney transplant: (4) Hyperlipidemia: (5) Hypertension: Admission and Anticipated Discharge Date Admission Date: July 01, 2024 Subjective Patient is intubated and sedated Review of Systems Review of Systems: Unobtainable due to endotracheal tube Physical Exam Constitutional: + mechanically ventilated Neck: trachea midline, no thyromegaly Respiratory: normal respiratory effort, lungs clear to auscultation Cardiovascular: RRR, no murmur, no edema Gastrointestinal (Abdomen): normal bowel sounds, soft, nontender, no hepatosplenomegaly Musculoskeletal: Extremities: extremities normal to inspection Skin: no rashes, warm and dry Neurologic: sedated. Lymphatic: no cervical lymphadenopathy Results & Data Results & Data Vital Signs (Past 12 Hours) Vital Signs Temp Pulse Resp BP Pulse Ox O2 Del Method FiO2 07/02/24 15:00 37.2 C 96 H 22 129/64 07/02/24 14:00 37.2 C 100 H 16 134/64 90 Mechanical Vent 80 07/02/24 13:00 37.1 C 104 H 17 123/66 89 L Mechanical Vent 80 07/02/24 12:00 159/63 H 07/02/24 11:48 83 22 91 80 07/02/24 11:30 127/68 07/02/24 11:24 36.9 C 82 22 90 Mechanical Vent 80 07/02/24 11:03 80 07/02/24 11:00 133/66 07/02/24 10:54 36.8 C 80 22 91 Mechanical Vent 80 07/02/24 10:39 36.8 C 82 22 91 Mechanical Vent 80 07/02/24 10:03 36.7 C 84 22 92 Mechanical Vent 80 07/02/24 10:00 131/72 07/02/24 09:57 36.7 C 85 22 91 Mechanical Vent 80 07/02/24 09:30 36.7 C 86 22 91 Mechanical Vent 80 07/02/24 09:30 120/66 07/02/24 09:03 36.6 C 79 22 91 Mechanical Vent 80 07/02/24 09:00 128/68 07/02/24 08:51 36.6 C 87 22 90 Mechanical Vent 80 07/02/24 08:30 119/68 07/02/24 08:30 36.5 C 84 22 90 Mechanical Vent 80 07/02/24 08:11 Mechanical Vent 80 07/02/24 08:00 133/67 07/02/24 08:00 80 07/02/24 08:00 74 07/02/24 07:45 36.5 C 95 H 22 90 Mechanical Vent 80 07/02/24 07:42 36.5 C 93 H 22 90 Mechanical Vent 80 07/02/24 07:30 114/57 L 07/02/24 07:24 36.4 C L 77 22 91 Mechanical Vent 80 07/02/24 07:24 79 22 91 80 07/02/24 07:00 36.4 C L 76 22 91 Mechanical Vent 80 07/02/24 07:00 114/62 07/02/24 06:30 107/63 07/02/24 06:30 36.3 C L 83 22 107/63 90 Mechanical Vent 80 07/02/24 06:00 36.3 C L 85 22 110/62 90 Mechanical Vent 80 07/02/24 05:06 36.4 C L 84 22 100/62 90 Mechanical Vent 80 07/02/24 04:30 36.3 C L 89 22 126/76 91 Mechanical Vent 80 07/02/24 04:00 36.2 C L 84 22 139/65 91 Mechanical Vent 80 07/02/24 04:00 80 Critical Care Results & Data Vital Signs (Past 12 Hours) Vital Signs Temp Pulse Resp BP Pulse Ox O2 Del Method FiO2 07/02/24 15:00 37.2 C 96 H 22 129/64 07/02/24 14:00 37.2 C 100 H 16 134/64 90 Mechanical Vent 80 07/02/24 13:00 37.1 C 104 H 17 123/66 89 L Mechanical Vent 80 07/02/24 12:00 159/63 H 07/02/24 11:48 83 22 91 80 07/02/24 11:30 127/68 07/02/24 11:24 36.9 C 82 22 90 Mechanical Vent 80 07/02/24 11:03 80 07/02/24 11:00 133/66 07/02/24 10:54 36.8 C 80 22 91 Mechanical Vent 80 07/02/24 10:39 36.8 C 82 22 91 Mechanical Vent 80 07/02/24 10:03 36.7 C 84 22 92 Mechanical Vent 80 07/02/24 10:00 131/72 07/02/24 09:57 36.7 C 85 22 91 Mechanical Vent 80 07/02/24 09:30 36.7 C 86 22 91 Mechanical Vent 80 07/02/24 09:30 120/66 07/02/24 09:03 36.6 C 79 22 91 Mechanical Vent 80 07/02/24 09:00 128/68 07/02/24 08:51 36.6 C 87 22 90 Mechanical Vent 80 07/02/24 08:30 119/68 07/02/24 08:30 36.5 C 84 22 90 Mechanical Vent 80 07/02/24 08:11 Mechanical Vent 80 07/02/24 08:00 133/67 07/02/24 08:00 80 07/02/24 08:00 74 07/02/24 07:45 36.5 C 95 H 22 90 Mechanical Vent 80 07/02/24 07:42 36.5 C 93 H 22 90 Mechanical Vent 80 07/02/24 07:30 114/57 L 07/02/24 07:24 36.4 C L 77 22 91 Mechanical Vent 80 07/02/24 07:24 79 22 91 80 07/02/24 07:00 36.4 C L 76 22 91 Mechanical Vent 80 07/02/24 07:00 114/62 07/02/24 06:30 107/63 07/02/24 06:30 36.3 C L 83 22 107/63 90 Mechanical Vent 80 07/02/24 06:00 36.3 C L 85 22 110/62 90 Mechanical Vent 80 07/02/24 05:06 36.4 C L 84 22 100/62 90 Mechanical Vent 80 07/02/24 04:30 36.3 C L 89 22 126/76 91 Mechanical Vent 80 07/02/24 04:00 36.2 C L 84 22 139/65 91 Mechanical Vent 80 07/02/24 04:00 80 Lab & Micro Results (Past 24 Hours) RBC 6.23 M/uL (4.70-6.10) H 07/02/24 WBC 7.66 K/ul (4.8-10.8) 07/02/24 Hgb 15.7 g/dl (14.0-18.0) 07/02/24 Hct 52.6 % (42.0-52.0) H 07/02/24 MCV 84.4 fL (80.0-100.0) 07/02/24 MCH 25.2 pg (25.0-34.0) 07/02/24 MCHC 29.8 g/dL (32.0-36.0) L 07/02/24 RDW Standard Deviation 49.9 fL (36.4-46.3) H 07/02/24 RDW Coefficient of Variation 17.6 % (11.5-14.5) H 07/02/24 Plt Count 164 K/uL (130-400) 07/02/24 MPV 11.1 fL (9.4-12.4) 07/02/24 Na 138 mmol/L (136-145) 07/02/24 K 4.8 mmol/L (3.5-5.1) 07/02/24 Cl 96 mmol/L (98-107) L 07/02/24 CO2 32 mmol/L (21-32) 07/02/24 Anion Gap 10 (3-11) 07/02/24 BUN 48 mg/dl (6-23) H 07/02/24 Creatinine 2.51 mg/dl (0.6-1.4) H 07/02/24 BUN/Creatinine Ratio 19.1 (10-20) 07/02/24 Glu 166 mg/dl (70-99(Fasting)) H 07/02/24 Ca 8.9 mg/dl (8.6-10.3) 07/02/24 Total Bilirubin 0.8 mg/dl (0.2-1.0) 07/02/24 Direct Bilirubin 0.3 mg/dl (0-0.2) H 07/02/24 AST 14 U/L (13-39) 07/02/24 ALT 16 U/L (7-52) 07/02/24 Alkaline Phosphatase 62 U/L (34-104) 07/02/24 TP 5.5 gm/dl (6.0-8.3) L 07/02/24 Albumin 3.6 gm/dl (3.4-5.0) 07/02/24 Calcium Level 8.9 mg/dl (8.6-10.3) 07/02/24 03:59 Triston Test NA 07/02/24 03:12 Microbiology 07/01/24 09:24 Gram Stain - Final Bronch Wash,Right Upper Lobe Bronchial Culture - Preliminary Moderate normal bobby present, final report to follow. 07/01/24 09:27 Gram Stain - Final Ba Lavage,Right Upper Lobe Bronchial Culture - Preliminary Moderate normal bobby present, final report to follow. 07/01/24 05:00 Gram Stain - Final Sputum,Vent Suction Sputum Culture - Preliminary Light normal bobby present, final report to follow. 07/01/24 09:24 Acid Fast Bacilli Smear - Final Bronch Wash,Right Upper Lobe 07/01/24 09:27 Acid Fast Bacilli Smear - Final Ba Lavage,Right Upper Lobe 06/30/24 21:00 Aerobic Blood Culture - Preliminary Blood No growth in Aerobic bottle after 24 hours. Anaerobic Blood Culture - Preliminary No growth in Anaerobic bottle after 24 hours. 06/30/24 21:00 Aerobic Blood Culture - Preliminary Blood No growth in Aerobic bottle after 24 hours. Anaerobic Blood Culture - Preliminary No growth in Anaerobic bottle after 24 hours. 07/01/24 09:24 Fungal Smear - Final Bronch Wash,Right Upper Lobe 07/01/24 09:27 Fungal Smear - Final Ba Lavage,Right Upper Lobe Diagnostic Findings (Past 24 Hours) Chest X-Ray 07/02/24 09:51 XR chest 1V portable CLINICAL HISTORY: Respiratory failure. COMPARISON STUDY: Chest CT June 30, 2024. Chest radiograph July 01, 2024. FINDINGS: Tip of endotracheal tube is 6.1 cm above the lotus. Tip of nasogastric tube is difficult to visualize but at least within the stomach. Cardiomediastinal silhouette is normal. There is no pneumothorax or pleural effusion. Multifocal airspace opacities have slightly progressed. IMPRESSION: 1. Satisfactory positioning of the endotracheal and nasogastric tubes. 2. Multifocal airspace opacities suggestive of pneumonia. Slight progression since prior exam. ACT 112: Negative or not required by law. Electronically signed by: David Montez M.D. 07/02/2024 10:19 AM I & O Totals 24 Hours 07/01/24 07/02/24 07/03/24 06:59 06:59 06:59 Intake Total 343.958 / 139.458 2308.248 / 1146.248 380.580 / 380.580 Output Total 860 / 860 1265 / 1265 385 / 385 Balance -516.042 / -516.042 -118.752 / -118.752 -4.420 / -4.420 Cumulative 06/30/24 15:57 thru 07/02/24 15:45 Intake Total 1870.786 Output Total 2510 Balance -639.214 RT Ventilator Mngmt (Last Documented) Ventilator Ordered Settings Ventilator Support Mode Assist Control 07/02/24 11:48 Respiratory Rate 22 07/02/24 15:00 Ventilator Tidal Volume 440 07/02/24 11:48 Setting Minute Ventilation 9.6 07/02/24 11:48 Positive End Expiratory 14 07/02/24 11:48 Pressure Fraction of Inspired Oxygen 80 07/02/24 14:00 Peak Inspiratory Flow 39 07/02/24 11:48 Machine Comment changes made by Dr. Marshall 07/02/24 11:48 Ventilator - PT Measurements Respiratory Rate 22 Exhaled Tidal Volume 440 Minute Ventilation 9.6 Peak Inspiratory Airway 27 Pressure Plateau Pressure 23.5 Respiratory Cycle Inspiratory: 1:2.0 Expiratory Ratio Inspiratory Phase Time 0.90 End-Tidal CO2 101 Static Lung Compliance 46.32 Dynamic Lung Compliance 33.85 Normal Static Lung Compliance 48.00 Patient Measurements Comment changes made per ABG results, Esa BARNARD CCM aware Coding Level of Care Code 52718 CRITICAL CARE 1ST 30-74M Diagnoses Acute on chronic respiratory failure with hypoxia and hypercapnia J96.21; J96.22 Rhinovirus infection B34.8 S/P kidney transplant Z94.0 Hyperlipidemia, unspecified hyperlipidemia type E78.5 Hyperlipidemia type: unspecified Hypertension, unspecified type I10 Hypertension type: unspecified (4) Hyperlipidemia Hyperlipidemia type: unspecified Qualified Code(s): E78.5 - Hyperlipidemia, unspecified (5) Hypertension Hypertension type: unspecified Qualified Code(s): I10 - Essential (primary) hypertension
--- NOTE | 2024-07-02 15:57 | Infectious Disease Progress Nt ---
Date of Service July 02, 2024 Assessment & Plan (1) Acute on chronic respiratory failure with hypoxia and hypercapnia: (2) S/P kidney transplant: (3) Rhinovirus infection: (4) Enterovirus infection: Plan 53yo M with h/o PCKD with ESRD s/p DDRT in 12/2020 at [facility] (CMV D+/R-, limited valcyte tx 2/2 neutropenia), on cellcept, tacrolimus, prednisone 5mg qd, h/o BK polyoma viruria, hyperparathyroidism, HTN, HLD, admission 06/04-06/06 with cough and hypoxia f/w rhinovirus/enterovirus PNA (dcd on 2L NC) who presented on 06/30 with SOB with hypoxia, fever, and worsening cough. He was hypoxic on arrival and initially placed on 6L NC, but eventually required intu bation. Hypotensive and placed on pressors. Initial labs with WBC 7.93, Cr 1.34, AST/ALT wnl. D dimer 1020, troponin elevated, LDH elevated to 283. CRP 2.44. PCT 0.09. CXR with multifocal infiltrates, slightly worsened from prior. Chest CTA neg for PE, with bl paracentral GGO, centrilobular nodular infiltration, RLL patchy consolidation, changes might represent acute infectious changes vs impending acute pulmonary edema; variable sized cysts in acquired liver and kidneys with thin linear calcific specks likely representing PCKD. He has been started on zosyn. ID consulted 07/01. S/p bronchoscopy 07/01. Currently off pressors. TTE with EF 50-55%, limited. Bronch cx with moderate normal bobby. Can consider de-escalation of abx if no other growth from bronch cultures tomorrow. Awaiting remainder of studies. # Acute hypoxic/hypercapnic respiratory failure # Positive rhinovirus/enterovirus PCR # IFARH # h/o renal transplant - f/u aspergillus Ag, urine histoplasma, CMV PCR, all cx and bronch studies (fungal, AFB, PJP, BDG) - continue empiric zosyn - consider de-escalation soon if no other growth from cultures ID will continue to follow. If questions or concerns, contact via [employer] or Infectious Disease Call Center . Cecily Mazariegos MD [facility], Division of Infectious Diseases Admission and Anticipated Discharge Date Admission Date: July 01, 2024 Subjective Subsequent visit was provided via telemedicine using two-way real-time interactive telecommunication between the patient and the telemedicine provider. For the duration of the visit, the provider was performing the assessment from a different facility than the patient. This includesuse of bluetooth stethoscope forauscultationperformed by the telepresenter that the telemedicine provider can hear if described in the physical exam. [place] contact information: Please call ID Connect Call Center . (Phone Number For Physician Use Only) After establishing a telemedicine visit, patient was: Patient was verified with two unique identifiers, Patient/authorized rep acknowledged consent and understanding and Gave permission to continue telehealth session Time Spent with Patient: Subsequent => 35 min Patient off sedation this morning. Denied pain. No significant sputum production per RN. Not on pressors. Physical Exam Physical Exam: General: intubated HEENT: NC/AT Lungs: coarse breath sounds Heart: regular Abdomen: soft, nondistended Ext: no LE edema Skin: no rash Results & Data Vital Signs (Past 12 Hours) Vital Signs Temp Pulse Resp BP Pulse Ox O2 Del Method FiO2 07/02/24 15:00 37.2 C 96 H 22 129/64 07/02/24 14:00 37.2 C 100 H 16 134/64 90 Mechanical Vent 80 07/02/24 13:00 37.1 C 104 H 17 123/66 89 L Mechanical Vent 80 07/02/24 12:00 159/63 H 07/02/24 11:48 83 22 91 80 07/02/24 11:30 127/68 07/02/24 11:24 36.9 C 82 22 90 Mechanical Vent 80 07/02/24 11:03 80 07/02/24 11:00 133/66 07/02/24 10:54 36.8 C 80 22 91 Mechanical Vent 80 07/02/24 10:39 36.8 C 82 22 91 Mechanical Vent 80 07/02/24 10:03 36.7 C 84 22 92 Mechanical Vent 80 07/02/24 10:00 131/72 07/02/24 09:57 36.7 C 85 22 91 Mechanical Vent 80 07/02/24 09:30 36.7 C 86 22 91 Mechanical Vent 80 07/02/24 09:30 120/66 12/18/24 09:03 36.6 C 79 22 91 Mechanical Vent 80 07/02/24 09:00 128/68 07/02/24 08:51 36.6 C 87 22 90 Mechanical Vent 80 07/02/24 08:30 119/68 07/02/24 08:30 36.5 C 84 22 90 Mechanical Vent 80 07/02/24 08:11 Mechanical Vent 80 07/02/24 08:00 133/67 07/02/24 08:00 80 07/02/24 08:00 74 07/02/24 07:45 36.5 C 95 H 22 90 Mechanical Vent 80 07/02/24 07:42 36.5 C 93 H 22 90 Mechanical Vent 80 07/02/24 07:30 114/57 L 07/02/24 07:24 36.4 C L 77 22 91 Mechanical Vent 80 07/02/24 07:24 79 22 91 80 07/02/24 07:00 36.4 C L 76 22 91 Mechanical Vent 80 07/02/24 07:00 114/62 07/02/24 06:30 107/63 07/02/24 06:30 36.3 C L 83 22 107/63 90 Mechanical Vent 80 07/02/24 06:00 36.3 C L 85 22 110/62 90 Mechanical Vent 80 07/02/24 05:06 36.4 C L 84 22 100/62 90 Mechanical Vent 80 07/02/24 04:30 36.3 C L 89 22 126/76 91 Mechanical Vent 80 07/02/24 04:00 36.2 C L 84 22 139/65 91 Mechanical Vent 80 07/02/24 04:00 80 Laboratory Results Labs reviewed. Diagnostic Findings Imaging reviewed.
[2024-07-02] MEDS: NOVASOURCE RENAL 2.0 CAL 1000ML BAG OG SCH (16:10)
[2024-07-03 04:18] LABS: Hematocrit (blood only) 48.7 % (42.0-52.0); Hemoglobin 15.2 g/dl (14.0-18.0); Mean Corpuscular Hgb Conc 31.2 g/dL (32.0-36.0); Mean Corpuscular Volume 83.2 fL (80.0-100.0); Mean Platelet Volume 10.9 fL (9.4-12.4); Platelet Count 166 K/uL (130-400); RDW Coefficient of Variation 16.5 % (11.5-14.5); RDW Standard Deviation 49.7 fL (36.4-46.3); Red Blood Count 5.85 M/uL (4.70-6.10); White Blood Count 8.81 K/ul (4.8-10.8)
[2024-07-03 04:34] LABS: Albumin Level 3.3 gm/dl (3.4-5.0); BUN Creatinine Ratio 22.1 (10-20); Calcium 8.6 mg/dl (8.6-10.3); Creatinine Clr Calc Pharmacy 43.3 ml/min; Magnesium 2.6 mg/dl (1.7-2.4); Phosphorus 6.2 mg/dl (2.5-4.9); Potassium 5.1 mmol/L (3.5-5.1)
[2024-07-03 04:37] LABS: Immature Granulocytes # (auto) 0.02 K/uL (0.01-0.20); Immature Granulocytes % (auto) 0.2 %; Lymphocytes # (auto) 0.14 K/uL (1.20-3.40); Lymphocytes % (auto) 1.6 %; Monocytes # (auto) 0.32 K/uL (0.11-0.59); Monocytes % (auto) 3.6 %; Neutrophils # (auto) 8.33 K/uL (1.40-6.50); Neutrophils % (auto) 94.6 %; Polychromasia 2+
[2024-07-03 05:28] LABS: iSTAT Allen Test Pass; iSTAT Art Bld Gas pCO2 Correct 68 mmHg (35-46); iSTAT Art Bld Gas pH Corrected 7.293 (7.35-7.45); iSTAT Arterial Blood Gas HCO3 33 meg/L (19-24); iSTAT Arterial Blood Gas pCO2 68 mmHg (35-46); iSTAT Arterial Blood Gas pH 7.29 (7.35-7.45); iSTAT Arterial Blood Gas pO2 81 mmHg (80-95); iSTAT Arterial Blood Gas pO2 C 80; iSTAT Carbon Dioxide 35 mmol/L (24-31); iSTAT FiO2 80 %; iSTAT Hematocrit 50 % (42-52); iSTAT Potassium 4.9 mmol/L (3.3-5.0); iSTAT Sample Type Arterial; iSTAT Site R Radial; iSTAT Sodium 136 mmol/L (135-144); iSTAT SpO2 90
--- NOTE | 2024-07-03 06:20 | Electrocardiogram Report ---
Test Reason : Blood Pressure : */* mmHG Vent. Rate : 87 BPM Atrial Rate : 87 BPM P-R Int : 114 ms QRS Dur : 70 ms QT Int : 346 ms P-R-T Axes : 20 63 17 degrees QTcB Int : 416 ms Normal sinus rhythm Normal ECG When compared with ECG of 05-Jun-2024 01:35, No significant change Confirmed by Tc Kidd ([id number]) on 07/03/2024 6:20:14 AM Referred By: REFERRED SELF Confirmed By: Tc Kidd
--- NOTE | 2024-07-03 08:00 | XRay Report ---
EXAM: XR chest 1V portable CLINICAL HISTORY: RESP FAILURE KAA/KAB TECHNIQUE: An X-ray image of the chest is obtained in 1 AP projection. COMPARISON: 06/30/2024 CR. FINDINGS: ETT with its tip about 6.1 cm above the lotus. NGT is seen with its tip below the left hemidiaphragm. Pulmonary Parenchyma: Mild interval improving bilateral lung lower zones opacities/infiltrates. No evidence of pleural effusion. Heart and Mediastinum: Heart size and shape are normal. No mediastinal widening or masses. No hilar or mediastinal lymphadenopathy. Bony Thorax: Bony thorax appears intact without fractures or deformities. Soft Tissues: Soft tissues overlying the chest wall are unremarkable. IMPRESSION: 1. Mild interval improving bilateral lung lower zones opacities/infiltrates. 2. ETT with its tip about 6.1 cm above the lotus. 3. NGT is seen with its tip below the left hemidiaphragm. Electronically signed by Marisela Burnett 07-03-2024 07:59 AM
--- NOTE | 2024-07-03 08:20 | Procedure Note ---
Procedure Note: Bronchoscopy Procedure Procedure: Fiberoptic bronchoscopy Bronchoalveolar lavage, right upper lobe Provider: Mg Marshall MD Consent: Procedure was emergent. Patient was intubated and unable to provide consent. Family not immediately available Indication: Abnormal CT scan and patient with hypoxemic respiratory failure and immunosuppression due to kidney transplant Procedure: Patient was in the ICU intubated. He was placed on 100% FiO2. The Bodai adapter was inserted in line in the circuit. After a timeout was performed, the fiberoptic scope was advanced through the existing endotracheal tube via the Bodai adapter. The tube was sounded and found to be in good position. A systematic inspection of the lower airways was conducted. There were no endobronchial lesions however the airways were diffusely erythematous and friable. Once inspection bronchoscopy was completed, the scope was wedged into the anterior septum right upper lobe. A BAL was performed with instillation of 2 aliquots of 60 cc of sterile saline. Return was suboptimal due to airway collapsibility however the return was about 30 mL. It was clear to slightly cloudy with no evidence of pulmonary hemorrhage. The scope was then retracted into the right mainstem bronchus and additional bronchial washings were performed there. The bronchoscope was then removed from the airways. The patient tolerated the procedure well without obvious complication. Patient remained intubated in the ICU Impression: 1. Inspection bronchoscopy with diffusely friable mucosa. 2. Successful BAL of right upper lobe with no evidence of pulmonary hemorrhage. Await microbiologic and cytologic analysis [facility] Procedure Codes (Charges) Pulmonary/Thoracic Procedure 1: Pulmonary and Thoracic: 77476 Dx bronchoscopy/BAL
--- NOTE | 2024-07-03 08:37 | Infectious Disease Progress Nt ---
Date of Service July 03, 2024 Assessment & Plan (1) Aspergillus pneumonia: (2) Acute on chronic respiratory failure with hypoxia and hypercapnia: (3) S/P kidney transplant: (4) Rhinovirus infection: (5) Enterovirus infection: Plan 53yo M with h/o PCKD with ESRD s/p DDRT in 12/2020 at [facility] (CMV D+/R-, limited valcyte tx 2/2 neutropenia), on cellcept, tacrolimus, prednisone 5mg qd, h/o BK polyoma viruria, hyperparathyroidism, HTN, HLD, admission 06/04-06/06 w ith cough and hypoxia f/w rhinovirus/enterovirus PNA (dcd on 2L NC) who presented on 06/30 with SOB with hypoxia, fever, and worsening cough. He was hypoxic on arrival and initially placed on 6L NC, but eventually required intubation. Hypotensive and placed on pressors. Initial labs with WBC 7.93, Cr 1.34, AST/ALT wnl. D dimer 1020, troponin elevated, LDH elevated to 283. CRP 2.44. PCT 0.09. CXR with multifocal infiltrates, slightly worsened from prior. Chest CTA neg for PE, with bl paracentral GGO, centrilobular nodular infiltration, RLL patchy consolidation, changes might represent acute infectious changes vs impending acute pulmonary edema; variable sized cysts in acquired liver and kidneys with thin linear calcific specks likely representing PCKD. He has been started on zosyn. ID consulted 07/01. S/p bronchoscopy 07/01. Currently off pressors, continues on vent. TTE with EF 50-55%, limited. Bronch cx with Aspergillus. AFB and fungal smear negative. Voriconazole started given Aspergillus on cx. He is currently also on zosyn, bacterial cx with normal bobby. Given ongoing significant respiratory failure, can continue on empiric coverage for now though would consider de-escalation to CTX. He did also have rhinovirus/enterovirus on PCR. Rhinovirus shedding has been reported to be prolonged in immunocompromised individuals (sometimes weeks or months). Therefore, its unclear if the positive PCR indicates re-infection or ongoing shedding from prior infection. Additional workup is in process. # Acute hypoxic/hypercapnic respiratory failure # Aspergillus pneumonia # Positive rhinovirus/enterovirus PCR shedding from recent infection vs re- infection # IFRAH # h/o renal transplant - voriconazole started 6mg/kg bid x 2 doses then 4mg/kg bid (using AdjBW given BMI) - f/u aspergillus Ag, urine histoplasma, CMV PCR, all cx and bronch studies (fungal, AFB, PJP) - on zosyn consider de-escalation to CTX 2g IV daily for empiric bacterial coverage (abx started 07/01) ID will continue to follow. If questions or concerns, contact via [employer] or Infectious Disease Call Center . Cecily Mazariegos MD [facility], Division of Infectious Diseases Admission and Anticipated Discharge Date Admission Date: July 01, 2024 Subjective Subsequent visit was provided via telemedicine using two-way real-time interactive telecommunication between the patient and the telemedicine provider. For the duration of the visit, the provider was performing the assessment from a different facility than the patient. This includesuse of bluetooth stethoscope forauscultationperformed by the telepresenter that the telemedicine provider can hear if described in the physical exam. [place] contact information: Please call ID Connect Call Center . (Phone Number For Physician Use Only) After establishing a telemedicine visit, patient was: Patient was verified with two unique identifiers, Patient/authorized rep acknowledged consent and understanding and Gave permission to continue telehealth session Time Spent with Patient: Subsequent => 55 min Patient intubaed and sedated. Per RN, ongoing high vent requirements. Physical Exam Physical Exam: General: intubated, sedated HEENT: vent Lungs: some coarse breath sounds Heart: regular Abdomen: soft, nondistended Results & Data Vital Signs (Past 12 Hours) Vital Signs Temp Pulse Resp BP Pulse Ox O2 Del Method FiO2 07/03/24 08:00 79 07/03/24 07:45 84 26 H 93 80 07/03/24 07:26 Mechanical Vent 80 07/03/24 06:00 36.9 C 81 26 H 109/66 90 80 07/03/24 05:30 111/66 07/03/24 05:30 36.9 C 81 26 H 90 07/03/24 05:05 90 26 H 90 80 07/03/24 05:00 115/70 07/03/24 05:00 36.9 C 89 21 90 80 07/03/24 04:43 115/73 07/03/24 04:43 115/73 07/03/24 04:21 36.9 C 88 22 94 07/03/24 04:00 124/71 07/03/24 04:00 124/71 07/03/24 04:00 124/71 07/03/24 04:00 36.9 C 97 H 22 92 80 07/03/24 04:00 80 07/03/24 03:30 135/67 07/03/24 03:30 135/67 07/03/24 03:30 135/67 07/03/24 03:27 36.9 C 102 H 22 91 07/03/24 03:00 127/68 07/03/24 03:00 36.9 C 104 H 13 91 80 07/03/24 02:30 37.0 C 102 H 22 92 07/03/24 02:30 137/66 07/03/24 02:30 137/66 07/03/24 02:30 137/66 07/03/24 02:21 71 22 93 80 07/03/24 02:15 37.0 C 84 22 93 80 07/03/24 01:30 126/67 07/03/24 01:30 126/67 07/03/24 01:18 37.1 C 86 19 92 07/03/24 01:06 37.1 C 88 19 92 80 07/03/24 01:00 118/67 07/03/24 01:00 118/67 07/03/24 00:51 37.2 C 86 19 92 07/03/24 00:30 37.2 C 84 22 92 07/03/24 00:30 124/64 07/03/24 00:09 37.2 C 83 22 92 80 07/03/24 00:00 127/73 07/03/24 00:00 86 07/03/24 00:00 80 07/02/24 23:54 37.2 C 87 93 07/02/24 23:30 126/73 07/02/24 23:30 37.2 C 85 21 92 80 07/02/24 23:00 119/77 07/02/24 23:00 37.2 C 87 22 92 80 07/02/24 22:30 129/70 07/02/24 22:27 37.2 C 93 H 22 92 12/18/24 22:24 90 22 92 80 07/02/24 22:18 37.2 C 92 H 22 91 80 07/02/24 21:30 124/69 07/02/24 21:24 37.2 C 95 H 22 91 07/02/24 21:03 37.2 C 90 22 92 80 07/02/24 21:00 122/67 07/02/24 21:00 122/67 07/02/24 21:00 122/67 07/02/24 20:57 37.2 C 86 22 92 07/02/24 20:40 78 22 93 80 Laboratory Results Labs reviewed. 06/30 RPP: positive for entero/rhino 06/30 BCX: ngtd 07/01 MRSA screen: neg 07/01 BAL studies: pending - Cx: Aspergillus, normal bobby - AFB: smear neg - Fungal: smear neg - PJP pending Diagnostic Findings Imaging reviewed.
--- NOTE | 2024-07-03 08:43 | Critical Care Progress Note ---
Date of Service July 03, 2024 Assessment & Plan (1) Acute on chronic respiratory failure with hypoxia and hypercapnia: Plan: Reason Critically Ill: 53-year-old immunosuppressed male with past medical history of kidney transplant, HTN, HLD and recent diagnosis of rhinovirus with home oxygen, presents to the ICU with acute respiratory failure with hypercapnia hypoxia 24-hour events: No adverse events overnight. Remains on 80% FiO2. BAL from 07/01 growing out Aspergillus species. Remains hemodynamically stable. 0828: Communicated with [facility]'s transfer center for transfer to [facility]. 1011: Spoke with Dr. Juan M De Jesus from [facility]'s ICU. He accepts patient in transfer. He recommends discontinuing further CellCept dosing at this time. Agrees with her transport. 1021: Updated patient's sister by phone. She is agreeable to transfer and is appreciative of the patient being transferred back to [facility] where his initial transplant was performed. Recommendations: Neuro - Sedation: Propofol, fentanyl drips Cardiac - Echocardiogram showed EF of 50 to 55% without regional wall motion abnormalities. Image quality was poor. Right ventricle showed normal systolic function. Aortic sclerosis without stenosis. No significant valvular dysfunction. Bubble study not performed. Patient did require vasopressor agents initially with sedation - have since been weaned off for >24 hours. Respiratory - Acute hypoxic and hypercapnic respiratory failure - Patient had some patchy parenchymal densities concerning for infection. His PCR was positive for rhinovirus. Send broad-spectrum antibiotics dictated by infectious disease (Zosyn). Most cultures are pending. Positive culture for Aspergillus species today. Reviewed with lab, ICU pharmacy, and infectious disease. Order placed for voriconazole therapy in the immunocompromise patient. Chest x-ray continues to show improved aeration despite ongoing oxygen requirement. Current vent settings AC 26/440/14/0.8 with labs blood gas showing 7.29/68/81/33. Peak pressures around 29. PF ratio 100. Patient does have an elevated bicarb at baseline suggestive of potential underlying chronic hypercarbic respiratory failure. No outpatient PFTs or polysomnography available to review. Currently on empiric Solu-Medrol 40 mg twice a day. Given the patient's ongoing significant oxygen requirement despite aggressive ventilatory techniques, patient may benefit from evaluation for extracorporeal oxygenation techniques not provided at this institution. Given the patient's ongoing significant oxygen requirement despite improvement in chest x-ray, cultures positive for Aspergillus, lack of onsite infectious disease, patient's recent transplantation in 2020, and possible need for ECMO, will reach out to [facility] to discuss the case with the patient's transplant team as well as ICU for possible transfer to higher level of care. GI - Receiving tube feeds RENAL/LYTES - Status post renal transplant. Immune suppressant medications per nephrology. Creatinine continues to rise slightly. Continue to follow. Given his complexities, if they would like him transferred to [facility] I think that would be reasonable. - Foleystrict I's and O's ENDO - Glycemic control per protocol. HEME - H&H stable, monitor routine CBC ID - Acute respiratory failure with ARDS physiology. Patient is currently day #4 empiric Zosyn. BAL fluid differential showed 80% neutrophils, 21% lymphocytes, and 18% monocytes. BAL positive for Aspergillus species today. Voriconazole per pharmacy/ID dosing. Continue empiric antibiotics directed by infectious disease. LINES/IV ACCESS - Peripheral IVs Warner ETT OGT DVT PROPHYLAXIS - Subcu heparin Patient is critically ill at this point time with significant possibility of clinical deterioration and/or decline. A total of 65 minutes in critical care time was spent in evaluation management and coordination of care for this complex medical patient. (2) Rhinovirus infection: (3) S/P kidney transplant: (4) Hyperlipidemia: (5) Hypertension: Admission and Anticipated Discharge Date Admission Date: July 01, 2024 Supervising Physician Co-Signing Physician Notes Patient seen and examined. EMR reviewed. Discussed with critical care MESHA. Bronchoscopy cultures growing fungus. Reviewed with lab. Appears to be consistent with Aspergillus species. Pharmacy discussed with ID. Initiated on voriconazole. Patient continues to demonstrate ARDS with a P to F ratio of about 100. He remains sedated. He is on a very low-dose of pressors. Kidney function slightly worse today. In light of the patient's medically complex issues as well as potential benefit of being closer to his transplant service and in light of his potentially immune compromised status with the pulmonary infection and ARDS, I agreed with evaluating the patient for transfer. His transplant center was contacted and case was discussed with the MESHA. They agreed to accept the patient in transfer. He will be flighted. I think this is reasonable given closer access to infectious disease, his transplant nephrology team, and potentially for respiratory adjuncts such as ECMO if required. This was discussed by the MESHA with the patient's sister who was agreeable. An additional 40 minutes in critical care time was spent in evaluation management and coordination of care for this patient Subjective No adverse overnight events noted. Patient seen and evaluated at bedside. He awakens easily to verbal stimuli. Morning Vent changes noted. Review of Systems Review of Systems: Unable to obtain Physical Exam Physical Exam: VITAL SIGNS - Vital signs and nursing notes were reviewed. GENERAL - 55-year-old male appearing his stated age who is intubated and sedated. SKIN - Without rashes. HEAD - NC/AT. EYES - PERRL with EOMI bilaterally. NOSE - Midline and without cyanosis. No epistaxis or purulent drainage noted. MOUTH/OROPHARYNX - ETT in place. Without perioral cyanosis. NECK - Neck with FROM. LUNGS - Coarse breath sounds noted at the bases. CARDIAC - RRR with S1/S2. No murmur, rubs, or gallops appreciated. ABDOMEN - Abdominal contour obese without pulsations. Palpable umbilical hernia. BS normoactive all four quadrants. No tenderness, palpable masses, hepatosplenomegaly, or ascites noted. EXTREMITIES - No clubbing or peripheral cyanosis. Moderate pretibial edema present. +3/5 radial and dorsalis pedis pulses palpated throughout. LUE fistula. NEUROLOGIC - No focal neurological deficits appreciated. Sedated, but awakens with verbal stimuli. Results & Data Results & Data Vital Signs (Past 12 Hours) Vital Signs Temp Pulse Resp BP Pulse Ox O2 Del Method FiO2 07/03/24 08:00 79 07/03/24 07:45 84 26 H 93 80 07/03/24 07:26 Mechanical Vent 80 07/03/24 06:00 36.9 C 81 26 H 109/66 90 80 07/03/24 05:30 111/66 07/03/24 05:30 36.9 C 81 26 H 90 07/03/24 05:05 90 26 H 90 80 07/03/24 05:00 115/70 07/03/24 05:00 36.9 C 89 21 90 80 07/03/24 04:43 115/73 07/03/24 04:43 115/73 07/03/24 04:21 36.9 C 88 22 94 07/03/24 04:00 124/71 07/03/24 04:00 124/71 07/03/24 04:00 124/71 07/03/24 04:00 36.9 C 97 H 22 92 80 07/03/24 04:00 80 07/03/24 03:30 135/67 07/03/24 03:30 135/67 07/03/24 03:30 135/67 07/03/24 03:27 36.9 C 102 H 22 91 07/03/24 03:00 127/68 07/03/24 03:00 36.9 C 104 H 13 91 80 07/03/24 02:30 37.0 C 102 H 22 92 07/03/24 02:30 137/66 07/03/24 02:30 137/66 07/03/24 02:30 137/66 07/03/24 02:21 71 22 93 80 07/03/24 02:15 37.0 C 84 22 93 80 07/03/24 01:30 126/67 07/03/24 01:30 126/67 07/03/24 01:18 37.1 C 86 19 92 07/03/24 01:06 37.1 C 88 19 92 80 07/03/24 01:00 118/67 07/03/24 01:00 118/67 07/03/24 00:51 37.2 C 86 19 92 07/03/24 00:30 37.2 C 84 22 92 07/03/24 00:30 124/64 07/03/24 00:09 37.2 C 83 22 92 80 07/03/24 00:00 127/73 07/03/24 00:00 86 07/03/24 00:00 80 07/02/24 23:54 37.2 C 87 93 07/02/24 23:30 126/73 07/02/24 23:30 37.2 C 85 21 92 80 07/02/24 23:00 119/77 07/02/24 23:00 37.2 C 87 22 92 80 07/02/24 22:30 129/70 07/02/24 22:27 37.2 C 93 H 22 92 07/02/24 22:24 90 22 92 80 07/02/24 22:18 37.2 C 92 H 22 91 80 07/02/24 21:30 124/69 07/02/24 21:24 37.2 C 95 H 22 91 07/02/24 21:03 37.2 C 90 22 92 80 07/02/24 21:00 122/67 07/02/24 21:00 122/67 07/02/24 21:00 122/67 07/02/24 20:57 37.2 C 86 22 92 07/02/24 20:40 78 22 93 80 Coding Level of Care Code 62318 CRITICAL CARE EA ADD 30M Diagnoses Acute on chronic respiratory failure with hypoxia and hypercapnia J96.21; J96.22 Rhinovirus infection B34.8 S/P kidney transplant Z94.0 Hyperlipidemia, unspecified hyperlipidemia type E78.5 Hyperlipidemia type: unspecified Hypertension, unspecified type I10 Hypertension type: unspecified (4) Hyperlipidemia Hyperlipidemia type: unspecified Qualified Code(s): E78.5 - Hyperlipidemia, unspecified (5) Hypertension Hypertension type: unspecified Qualified Code(s): I10 - Essential (primary) hypertension
[2024-07-03] MEDS: SODIUM CHLORIDE 0.9% IV SCH (10:02)
[2024-07-03] MEDS: VORICONAZOLE IV SCH (10:02)
[2024-07-03 10:17] VITALS: TEMP 98.8
[2024-07-03 10:36] VITALS: BP 124/75
--- NOTE | 2024-07-03 10:45 | Nephrology Progress Note ---
Date of Service July 03, 2024 Assessment & Plan (1) Acute on chronic respiratory failure with hypoxia and hypercapnia: (2) S/P kidney transplant: (3) Rhinovirus infection: (4) Enterovirus infection: Plan 53 y o M with end-stage kidney disease secondary to polycystic kidney disease status post donor kidney transplant in [facility] [facility] in 2020 admitted with hypoxic respiratory failure requiring intubation in ER. Enterovirus and rhinovirus was positive and empirically started on Zosyn. Had bronchoscopy this morning considering 2 episodes of hypoxic respiratory failure over last 1 month and risk for opportunistic infection considering immunosuppressed state. Baselin e creatinine has been around 1.3-1.4 mg/dl. On admission creatinine was 1.3 mg/dl which increased to 1.6 this morning. Overnight has been hypotensive since he was intubated requiring pressor for brief period, but now off of pressor. IFRAH with progressive worsening of kidney function most likely prerenal vs ATN with hypotension and sepsis however the rise of creatinine seem to have slowed down with improved hemodynamic and better blood pressure, off of pressor for 2 days.. -- There has been discussion for possible transfer to a tertiary care facility for ECMO, waiting on decision -- continue on tacrolimus and CellCept at current dose via NG tube while NPO, discussed with pharmacy. Tacrolimus trough level pending. -- monitor kidney function and electrolyte, as BP improved and clinically st able, may see kidney function stabilizing but may take time. -- Left arm nephrology precaution for AV fistula in place -- discussed with his sister over telephone yesterday and updated regarding clinical course. Admission and Anticipated Discharge Date Admission Date: July 01, 2024 Wil Torres was seen and evaluated this morning. He remains intubated but awake, off of sedation and pressors. Blood pressure stable but still requiring high FiO2. Slight worsening of kidney function noted but the rate of rise in creatinine slowed down, electrolyte acceptable. Decent urine output. Review of Systems Review of Systems: Detail ROS could not be done. Physical Exam Constitutional: WD/WN, vitals as above + ill appearing and + mechanically ventilated Eyes: + anicteric sclerae Respiratory: Auscultation: + diminished lung sounds Cardiovascular: Rate/Rhythm: regular rate and regular rhythm Heart Sounds: normal S1 and normal S2 Extremities: + AV fistula (left RC AVF with thrill and bruit.); no edema Musculoskeletal: Extremities: extremities normal to inspection Skin: no rashes Neurologic: Remained intubated but awake and alert. Results & Data Vital Signs (Past 12 Hours) Vital Signs Temp Pulse Pulse Resp BP BP Pulse Ox 07/03/24 10:34 37.1 C 58 L 26 H 124/75 92 07/03/24 10:12 37.1 C 86 26 H 92 07/03/24 10:00 119/71 07/03/24 09:00 118/70 07/03/24 09:00 37.0 C 88 26 H 91 07/03/24 08:30 37.0 C 96 H 26 H 92 07/03/24 08:30 132/80 07/03/24 08:03 37.0 C 98 H 26 H 91 07/03/24 08:00 120/67 07/03/24 08:00 120/67 07/03/24 08:00 120/67 07/03/24 08:00 07/03/24 08:00 79 07/03/24 07:51 37.0 C 86 26 H 92 07/03/24 07:45 84 26 H 93 07/03/24 07:30 112/66 07/03/24 07:30 112/66 07/03/24 07:26 07/03/24 07:12 36.9 C 78 26 H 92 07/03/24 07:00 36.9 C 74 26 H 91 07/03/24 07:00 114/62 07/03/24 06:00 36.9 C 81 26 H 109/66 90 07/03/24 05:30 111/66 07/03/24 05:30 36.9 C 81 26 H 90 07/03/24 05:05 90 26 H 90 07/03/24 05:00 115/70 07/03/24 05:00 36.9 C 89 21 90 07/03/24 04:43 115/73 07/03/24 04:43 115/73 07/03/24 04:21 36.9 C 88 22 94 07/03/24 04:00 124/71 07/03/24 04:00 124/71 07/03/24 04:00 124/71 07/03/24 04:00 36.9 C 97 H 22 92 07/03/24 04:00 07/03/24 03:30 135/67 07/03/24 03:30 135/67 07/03/24 03:30 135/67 07/03/24 03:27 36.9 C 102 H 22 91 07/03/24 03:00 127/68 07/03/24 03:00 36.9 C 104 H 13 91 07/03/24 02:30 37.0 C 102 H 22 92 07/03/24 02:30 137/66 07/03/24 02:30 137/66 07/03/24 02:30 137/66 07/03/24 02:21 71 22 93 07/03/24 02:15 37.0 C 84 22 93 07/03/24 01:30 126/67 07/03/24 01:30 126/67 07/03/24 01:18 37.1 C 86 19 92 07/03/24 01:06 37.1 C 88 19 92 07/03/24 01:00 118/67 07/03/24 01:00 118/67 07/03/24 00:51 37.2 C 86 19 92 07/03/24 00:30 37.2 C 84 22 92 07/03/24 00:30 124/64 07/03/24 00:09 37.2 C 83 22 92 07/03/24 00:00 127/73 07/03/24 00:00 86 07/03/24 00:00 07/02/24 23:54 37.2 C 87 93 07/02/24 23:30 126/73 07/02/24 23:30 37.2 C 85 21 92 07/02/24 23:00 119/77 07/02/24 23:00 37.2 C 87 22 92 O2 Del Method FiO2 07/03/24 10:34 07/03/24 10:12 07/03/24 10:00 07/03/24 09:00 07/03/24 09:00 07/03/24 08:30 07/03/24 08:30 07/03/24 08:03 07/03/24 08:00 07/03/24 08:00 07/03/24 08:00 07/03/24 08:00 80 07/03/24 08:00 07/03/24 07:51 07/03/24 07:45 80 07/03/24 07:30 07/03/24 07:30 07/03/24 07:26 Mechanical Vent 80 07/03/24 07:12 07/03/24 07:00 Mechanical Vent 80 07/03/24 07:00 07/03/24 06:00 80 07/03/24 05:30 07/03/24 05:30 07/03/24 05:05 80 07/03/24 05:00 07/03/24 05:00 80 07/03/24 04:43 07/03/24 04:43 07/03/24 04:21 07/03/24 04:00 07/03/24 04:00 07/03/24 04:00 07/03/24 04:00 80 07/03/24 04:00 80 07/03/24 03:30 07/03/24 03:30 07/03/24 03:30 07/03/24 03:27 07/03/24 03:00 07/03/24 03:00 80 07/03/24 02:30 07/03/24 02:30 07/03/24 02:30 07/03/24 02:30 07/03/24 02:21 80 07/03/24 02:15 80 07/03/24 01:30 07/03/24 01:30 07/03/24 01:18 07/03/24 01:06 80 07/03/24 01:00 07/03/24 01:00 07/03/24 00:51 07/03/24 00:30 07/03/24 00:30 07/03/24 00:09 80 07/03/24 00:00 07/03/24 00:00 07/03/24 00:00 80 07/02/24 23:54 07/02/24 23:30 07/02/24 23:30 80 07/02/24 23:00 07/02/24 23:00 80 PG Care Time/CCT Total # of Minutes Spent Total Time Spent with Patient: Total time spent is greater than 50% in coordination of care (as documented) at patient's floor/unit and/or counseling patient: Coding Level of Care Code 11272 SUB INP/OBS CARE 3/50MIN Diagnoses Acute on chronic respiratory failure with hypoxia and hypercapnia J96.21; J96.22 S/P kidney transplant Z94.0 Rhinovirus infection B34.8 Enterovirus infection B34.1
--- NOTE | 2024-07-03 10:49 | Discharge Summary ---
Date of Service July 03, 2024 Admission HPI Per Admitting Provider Patient is a 53-year-old male with past medical history of polycystic kidney disease, ESRD s/p renal transplant, secondary hyperparathyroidism, hypertension, and hyperlipidemia. Patient presents to the hospital with difficulty breathing. Patient was seen recently in the hospital and sent home on 2 L of oxygen as well as Mucinex. Patient states that he had a fever today as well as worsening shortness of breath. States that he is also coughing more. Denies any nausea, vomiting, abdominal pain, or urinary issues. Patient states that he checked his oxygen today which was low so he upped his oxygen. Patient was brought in by EMS and had O2 saturations of 74%. He was placed on 6 L nasal cannula. He also had bilateral wheezing worse on the right side. They gave him a albuterol treatment en route to the hospital. Patient was very somnolent on admission. He was falling asleep while getting asked questions. Admission Exam (Per Admitting) Constitutional The patient is intubated and ventilated HEENT--PERRL, EOMI, mucous membranes and oropharynx mildly dry Neck--supple. No JVD. No bruits. Thyroid normal, trachea midline, no adenopathy. Heart--normal S1 and S2. No murmurs, rubs or gallops. Lungs--reeduced air entry Abdomen--normal bowel sounds and soft. Extremities--no cyanosis or clubbing. No edema. Dermatologic--normal skin turgor, normal color, no abnormal lymph nodes, no rash. Neurologic--intubated and ventilated Rheumatologic--normal range of motion. Psychiatric--normal affect. Discharge Data Consultations 06/30/24 17:55 ED Decision to Admit Stat 07/01/24 01:34 Consult Senior Cytotechnologist Routine 07/01/24 09:43 Consult Infectious Diseases Routine Consult Nephrology Routine Hospital Course (1) Sepsis: suspected sepsis likely due to multifocal pneumonia with acute on chronic hypercapnic and hypoxic respiratory failure. Present on admission Blood cultures negative However, bronchiaal aspirate positive for Aspergilus continue zosyn add Voriconazole (2) Respiratory failure with hypercapnia: -ARDS -Worsened oxygenation status at time of admission. -Currently intubated and ventilated -Respiratory BioFire positive for entero-/rhinovirus. -Chest x-ray showed multifocal infiltrates which is slightly worse from prior chest x-ray. -CTA chest negative for PE. Did show bilateral pericentral groundglass opacities, central lobar nodular infiltrates, and right lower lobe patchy consolidation. Acute infectious changes versus impending acute pulmonary edema -Started on Zosyn. -Echo showed EF 50-55%, no wall motion abnormality. -Patient is immunocompromise due to kidney transplant and 2020 -He underwent bronchoscopy 07/01, positive for Aspergillus -Still requiring a lot of oxygen -Will transfer to [facility] for possible ECMO (3) End stage renal disease: -Renal transplant back in 2020, follows with [facility] [place]. -Creatinine worsening -Nephrology on board (4) Lower extremity edema: -Patient with lower extremity edema and findings on x-ray and CT chest which may be related to acute infection or pulmonary edema. -Given 40 mg of Lasix at time of admission. -No history of heart failure though no echo previously done. -Echo showed EF50-55% (5) S/P kidney transplant: -Renal transplant back in 2020. -Continue on tacrolimus, prednisone, and mycophenolate. -Patient is immune compromised due to these medications and further workup of etiology of his respiratory failure with hypercapnia may be warranted. -Continue ICU care. (6) Hyperlipidemia: -Continue on simvastatin once medically stable. (7) Hypertension: -BP stable (8) Rhinovirus infection: -As above. (9) Secondary hyperparathyroidism: -Unknown to patient, may need previous records. Plan Transfer to [facility] Coding Level of Care Code 29463 INP/OBS DISCH >30 MIN Diagnoses Sepsis A41.9 Respiratory failure with hypercapnia J96.92 End stage renal disease N18.6 Lower extremity edema R60.0 S/P kidney transplant Z94.0 Hyperlipidemia, unspecified hyperlipidemia type E78.5 Hyperlipidemia type: unspecified Hypertension, unspecified type I10 Hypertension type: unspecified Rhinovirus infection B34.8 Secondary hyperparathyroidism N25.81 Time Spent (min) 35
[2024-07-03 11:23] VITALS: PULSE 75; RESP 27; O2SAT 93
[2024-07-04] MEDS ORDERED: SODIUM CHLORIDE 0.9% IV SCH (10:00)
[2024-07-04] MEDS ORDERED: VORICONAZOLE IV SCH (10:00)
[2024-07-04 16:32] LABS: Aspergillus Ag Index 0.08 (<0.50); Aspergillus Antigen, Serum Not Detected (Not Detected)
[2024-07-05 13:17] LABS: CMV DNA Qnt Real Time PCR Not Detected; CMV DNA Quant PCR Not Detected log IU/mL
[2024-07-05 16:17] LABS: Pneumocystis jirovecii PCRQual NOT DETECTED; Pneumocystis jirovecii Source BRONCH LAV
== END 2024-07-03 12:15 | disposition short-term general hospital (02) | DRG 871 ==
LOC: SUATTDRO → ED 16:07 → 1E 21:39 → SUATTDRO 21:39 → 1E 07-01 01:00